=== PATIENT | male | born 1965 | race Caucasian/White ===

== ENCOUNTER 2019-01-05 10:02 | Inpatient (IN) | payer SELFPAY ==
[2019-01-05] VITALS (36 sets, daily range): BP systolic 90–138; BP diastolic 59–92
[~2019-01-05] VITALS: Ht 165.1 cm; Wt 122.5 kg
[~2019-01-05 10:02] MED LIST: NS(*) 0.9% 1000 ML BAG 1,000 ML IV ONE
--- NOTE | 2019-01-05 10:02 | ER Report ---
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 Patient is alert and oriented however and reports slurred speech without motor deficit prompting helicopter to be deployed for seen call however the patient refused transport. Patient was immediately brought to the CT scanner to evaluate for intracranial bleed, CT imaging was negative. Patient was found to be hyperglycemic in the 500s. Patient also has a gangrenous appearing right foot which the patient says started 2 days ago. Patient has a history of type II diabetes. Patient's reports that he developed erythema of the foot starting 2 weeks ago REVIEW OF SYSTEMS: Constitutional: + fever, + chills. Eyes: No discharge. ENT: No sore throat. + Slurred speech Cardiovascular: No chest pain, no palpitations. Respiratory: No cough, no shortness of breath. Gastrointestinal: No abdominal pain, no vomiting. Genitourinary: No hematuria. Musculoskeletal: No back pain. + Right foot infection Skin: No rashes. Neurological: No headache. + No motor deficits Allergies: Coded Allergies: Penicillins (Verified Allergy, Unknown, 01/05/19) Constitutional Vital Sign - Last 24 Hours 01/05/19 01/05/19 01/05/19 01/05/19 10:02 10:17 10:20 10:28 Temp 92.0 Pulse 84 81 81 Resp 26 23 22 B/P (MAP) 125/65 136/98 (111) Pulse Ox 97 95 93 O2 Delivery Room Air 01/05/19 01/05/19 01/05/19 01/05/19 10:30 10:32 10:37 10:45 Temp 91.9 Pulse 84 86 Resp 20 23 B/P (MAP) 136/82 (100) 138/115 (123) Pulse Ox 95 95 01/05/19 01/05/19 01/05/19 01/05/19 11:00 11:07 11:12 11:42 Pulse 87 87 88 Resp 24 23 24 B/P (MAP) 145/78 (100) Pulse Ox 90 89 95 01/05/19 11:50 B/P (MAP) 143/88 (106) Physical Exam General Appearance: The patient is alert, has no immediate need for airway protection and no signs of toxicity. Slurred speech, complaining of his right foot infection 2 days, and be hyperglycemic in the setting of type II diabetes Eyes: Pupils equal and round no pallor or injection. ENT, Mouth: Mucous membranes are dry Respiratory: There are no retractions, lungs are clear to auscultation. Cardiovascular: Regular rate and rhythm. Gastrointestinal: Abdomen is soft and non tender, no masses, bowel sounds normal. Neurological: Mild slurred speech, motor function intact in extremities, no facial droop, cranial nerves intact Skin: Warm and dry, no rashes. Musculoskeletal: Neck is supple non tender. Right foot eschars with proximal erythema and surrounding edema DIFFERENTIAL DIAGNOSIS: After history and physical exam differential diagnosis was considered for adult fever including but not limited to viral syndromes in cluding influenza, urinary tract infection, pneumonia and sepsis, diabetic foot infection, HHN K, DKA, CVA, TIA. Medical Decision Making Data Points Result Diagram: 01/05/19 1016 01/05/19 1016 Laboratory Hematology Test 01/05/19 10:16 White Blood Count 27.7 k/uL (4.5-11.0) H Red Blood Count 4.22 M/uL (4.00-5.60) Hemoglobin 12.1 g/dL (14.0-18.0) L Hematocrit 37.9 % (42.0-52.0) L Mean Corpuscular Volume 89.6 fL (80.0-96.0) Mean Corpuscular Hemoglobin 28.7 pg (26.0-33.0) Mean Corpuscular Hemoglobin Concent 32.1 g/dL (32.0-36.0) Red Cell Distribution Width 14.4 % (11.5-14.5) Platelet Count 225 K/uL (150-450) Mean Platelet Volume 8.2 fL (7.2-11.1) Neutrophils (%) (Auto) 94.5 % (39.4-72.5) H Lymphocytes (%) (Auto) 1.6 % (17.6-49.6) L Monocytes (%) (Auto) 2.8 % (4.1-12.4) L Eosinophils (%) (Auto) 0.0 % (0.4-6.7) L Basophils (%) (Auto) 1.1 % (0.3-1.4) Nucleated RBC Relative Count (auto) 0.0 /100WBC Neutrophils # (Auto) 26.1 K/uL (2.0-7.4) H Lymphocytes # (Auto) 0.4 K/uL (1.3-3.6) L Monocytes # (Auto) 0.8 K/uL (0.3-1.0) Eosinophils # (Auto) 0.0 K/uL (0.0-0.5) Basophils # (Auto) 0.3 K/uL (0.0-0.1) H Nucleated RBC Absolute Count (auto) 0.00 K/uL Peripheral Blood Smear Yes Y/N Chemistry Test 01/05/19 10:16 01/05/19 11:12 Sodium Level 129 mmol/L (137-145) Potassium Level 3.1 mmol/L (3.5-5.0) Chloride Level 85 mmol/L (98-107) Carbon Dioxide Level 13 mmol/L (22-30) Blood Urea Nitrogen 42 mg/dl (9-21) Creatinine 1.60 mg/dl (0.66-1.25) Glomerular Filtration Rate Calc 45.3 Random Glucose 501 mg/dl (75-110) Lactate 2.1 mmol/L (0.7-2.1) Calcium Level 9.9 mg/dl (8.4-10.2) Total Bilirubin 0.6 mg/dl (0.2-1.3) Aspartate Amino Transf (AST/SGOT) 62 U/L (0-35) Alanine Aminotransferase (ALT/SGPT) 38 U/L (0-56) Alkaline Phosphatase 161 U/L (0-126) Total Creatine Kinase 1048 U/L (55-170) Troponin I 0.079 ng/ml Total Protein 6.6 g/dl (6.3-8.2) Albumin 3.0 g/dl (3.5-5.0) Lipase 20 U/L (23-300) Toxicology Test 01/05/19 00:00 01/05/19 10:16 Urine Opiates Screen Negative Urine Barbiturates Screen Negative Ur Tricyclic Antidepressants Screen Negative Urine Phencyclidine Screen Negative Urine Amphetamines Screen Negative Urine Benzodiazepines Screen Negative Urine Cocaine Screen Negative Urine Cannabinoids Screen Negative Acetone, Qualitative Moderate Urinalysis Test 01/05/19 10:31 Urine Color Yellow Urine Clarity Clear Urine pH 5.0 pH (4.8-9.5) Urine Specific [place] 1.018 Urine Protein 100 mg/dL (NEGATIVE) Urine Glucose (UA) 500 mg/dL (NEGATIVE) Urine Ketones 80 mg/dL (NEGATIVE) Urine Blood Moderate (NEGATIVE) Urine Nitrite Negative (NEGATIVE) Urine Bilirubin Negative (NEGATIVE) Urine Urobilinogen Negative mg/dL (0.2-1.9) Urine Leukocyte Esterase Negative (NEGATIVE) Urine RBC 1 /HPF (0-2/HPF) Urine WBC 1 /HPF (0-5/HPF) Urine Squamous Epithelial Cells None /LPF (</=FEW) Urine Bacteria Negative /HPF (NONE-FEW) Urine Hyaline Casts Moderate /LPF (NONE-FEW) Urine Granular Casts Moderate /LPF (NONE) Urine Mucus None /HPF (NONE-FEW) EKG/Imaging EKG Interpretation 12 lead EKG: Normal sinus rhythm, ventricular rate 82, QTC 481, no ischemic findings or ST elevations noted. Rhythm: normal sinus rhythm [place]uckey: normal QRS: normal ST segments: normal Imaging PATIENT NAME: Shayne Fairchild : 1965 MR: [id number] V: [id number] EXAM DATE: ORDERING PHYSICIAN: LALO HOWE TECHNOLOGIST: Location: [facility] [place]: Shayne Fairchild : 1965 Visit/Account:[id number] Date of Sevice: 01/05/2019 CT BRAIN WITHOUT CONTRAST CLINICAL INDICATION: COMPARISON: No priors TECHNIQUE: Contiguous axial CT images of the brain were obtained without IV contrast. Sagittal and coronal reformatted images were also performed. One of the following dose optimization techniques was utilized in the performance of this exam: Automated exposure control; adjustment of the mA and/or kV according to the patient's size; or use of an iterative reconstruction technique. Specific details can be referenced in the facility's radiology CT exam operational policy. RESULT: BRAIN: Ventricles and sulci are within normal limits. Focal hypoattenuation within the left basal ganglia may be related to chronic microvascular ischemic changes however cannot exclude a subacute infarct. Small area of hypoattenuation within the left thalamus is favored chronic. The brainstem and cerebellum appear normal. The basilar cisterns appear normal. There is no mass, hemorrhage or shift of midline. Vascular atherosclerotic calcifications are present. PARANASAL SINUSES & MASTOIDS: Well aerated. SKULL BASE & CRANIUM: Visualized osseous structures are intact. SOFT TISSUES: No soft tissue swelling or hematoma is appreciated. IMPRESSION: 1. No definitive acute findings. 2. Focal hypoattenuation within the left basal ganglia which may be related to chronic microvascular ischemic changes however cannot exclude a subacute in farct. There is an additional small focal area within the left thalamus which is favored chronic. Consider MRI for further evaluation. ED Course/Re-evaluation ED Course Patient is a 53-year-old male here with complaints of right foot infection with eschars and surrounding edema and erythema in the setting of type II diabetes, hyperglycemia, dehydration, slurred speech, CT imaging of the head initially concerning for a subacute CVA prompting MRI evaluation. Patient was also found to be hypothermic with a rectal temp of 92F. Patient had been found in his truck and reportedly had been lying in the supine position for approximately 24 hours or more. Anion gap of 31. Cavazos catheter placed. Potassium was found to be 3.1. Patient will need repletion. I discussed the patient with Dr. To is still accepted the patient to the ICU for further treatment and care. Ertapenem was administered. Decision to Disposition Date: Jan 05, 2019 Decision to Disposition Time: 12:22 Depart Departure Latest Vital Signs Vital Signs Date Time Temp Pulse Resp B/P (MAP) Pulse Ox O2 Delivery O2 Flow Rate FiO2 01/05/19 11:50 143/88 (106) 01/05/19 11:42 88 24 95 01/05/19 10:32 91.9 01/05/19 10:20 Room Air Impression: Primary Impression: Sepsis Additional Impressions: Diabetic foot infection Hyperglycemia Slurred speech Condition: Condition Unchanged Disposition: Admitted from ER Problem Qualifiers LALO HOWE DO Jan 05, 2019 10:02
[2019-01-05] MEDS ORDERED: INS HUM REG* 100 U/ML(ER ONLY) 100 UNIT in NS(*) 0.9% 100 ML BAG 99 ML IVPB ONE (10:10)
[2019-01-05] MEDS ORDERED: INS HUM LISPRO 100U/ML (ER ONLY) 10 ML VIAL SC ONE (10:10)
[2019-01-05] MEDS ORDERED: ERTAPENEM(*) 1 GM VIAL 1 GM in NS(*) 0.9% 100 ML MINI-BAG 100 ML IVPB ONE (10:25)
--- NOTE | 2019-01-05 10:31 | RADIOLOGY IMAGING REPORT ---
FACILITY: [facility] - [place] PATIENT NAME: Shayne Fairchild : 1965 MR: [id number] V: [id number] EXAM DATE: ORDERING PHYSICIAN: LALO HOWE TECHNOLOGIST: Location: [facility] [place] Patient: Shayne Fairchild : 1965 Visit/Account:[id number] Date of Sevice: 01/05/2019 CT BRAIN WITHOUT CONTRAST CLINICAL INDICATION: COMPARISON: No priors TECHNIQUE: Contiguous axial CT images of the brain were obtained without IV contrast. Sagittal and co pita reformatted images were also performed. One of the following dose optimization techniques was utilized in the performance of this exam: Autom ated exposure control; adjustment of the mA and/or kV according to the patient's size; or use of an i terative reconstruction technique. Specific details can be referenced in the facility's radiology C T exam operational policy. RESULT: BRAIN: Ventricles and sulci are within normal limits. Focal hypoattenuation within the left basal ga nglia may be related to chronic microvascular ischemic changes however cannot exclude a subacute infa rct. Small area of hypoattenuation within the left thalamus is favored chronic. The brainstem and cerebellum appear normal. The basilar cisterns appear normal. There is no mass, hemorrhage or shift of midline. Vascular atherosclerotic calcifications are present. PARANASAL SINUSES & MASTOIDS: Well aerated. SKULL BASE & CRANIUM: Visualized osseous structures are intact. SOFT TISSUES: No soft tissue swelling or hematoma is appreciated. IMPRESSION: 1. No definitive acute findings. 2. Focal hypoattenuation within the left basal ganglia which may be related to chronic microvascular ischemic changes however cannot exclude a subacute infarct. There is an additional small focal area within the left thalamus which is favored chronic. Consider MRI for further evaluation. Results were discussed with LALO HOWE at 01/05/2019 10:22 AM. Report Dictated By: Dino Christiansen MD at 01/05/2019 10:15 AM Report E-Signed By: Dino Christiansen MD at 01/05/2019 10:22 AM WSN:[email or web address]
[2019-01-05 10:32] LABS: PLATELET COUNT, AUTOMATED 225 K/uL (150-450)
[2019-01-05] MEDS ORDERED: KCL/NS* 20 MEQ/1000 ML PREMIX 1,000 ML IV ONE (11:25)
--- NOTE | 2019-01-05 11:54 | EKG ---
FACILITY: [facility] - [place] PATIENT NAME: SHIRA TYLER : [id number] MR: [id number] V: [id number] EXAM DATE: ORDERING PHYSICIAN: LALO HOWE TECHNOLOGIST: MINA Test Reason : POSS STROKE Blood Pressure : / mmHG Vent. Rate : 082 BPM Atrial Rate : 082 BPM P-R Int : 138 ms QRS Dur : 106 ms QT Int : 412 ms P-R-T Axes : 067 039 -17 degrees QTc Int : 481 ms Accelerated Junctional rhythm Anterior infarct , age undetermined Abnormal ECG When compared with ECG of 05-JAN-2019 06:33, Junctional rhythm has replaced Sinus rhythm Anterior infarct is now present Confirmed by Maxim Morton ([id number]) on 01/06/2019 12:36:24 AM Referred By: CARLEY Confirmed By:Maxim Reinoso
--- NOTE | 2019-01-05 12:47 | RADIOLOGY IMAGING REPORT ---
FACILITY: [facility] - [place] PATIENT NAME: Shayne Fairchild : 1965 MR: [id number] V: [id number] EXAM DATE: ORDERING PHYSICIAN: LALO HOWE TECHNOLOGIST: Location: [facility] Patient: Shayne Fairchild : 1965 Visit/Account:[id number] Date of Sevice: 01/05/2019 FOOT 2 VIEW RIGHT Indication: infection Comparison: None Available Findings: 2 views of the right foot were obtained. No evidence of fracture, dislocation, or acute osseous abnormality of the right foot. Soft tissue swelling/heterogeneity surrounding the forefoot. No gross underlying osseous abnormality . There are punctate radiodensities overlying the MTP joints which are likely on the skin surface. Moderate to advanced vascular calcifications. No evidence of radiopaque foreign body. Small/moderate Achilles insertional enthesophyte. IMPRESSION: 1. Soft tissue swelling/heterogeneity surrounding the forefoot without gross underlying osseous irre gularity to suggest osteomyelitis. Report Dictated By: Dino Crhistiansen MD at 01/05/2019 12:36 PM Report E-Signed By: Dino Christiansen MD at 01/05/2019 12:39 PM WSN:[email or web address]
[2019-01-05] MEDS ORDERED: INFLUENZA VIRUS VAC 0.5ML SYR IM ONLY ONE (13:35)
[2019-01-05] MEDS: KCL/D1/2NS 20 MEQ 1000 ML 1,000 ML IV SCH ×2 (13:50→16:34)
[2019-01-05] MEDS ORDERED: VANCOMYCIN(*) 1 GM VIAL 2 GM, VANCOMYCIN (*) 0.5 GM VIAL 0.5 GM in NS(*) 0.9% 500 ML BA... IVPB ONE (14:00)
[2019-01-05] MEDS ORDERED: METF-450 PO (14:20)
[2019-01-05] MEDS ORDERED: INSULIN HUM REG 100 UN/ML 3 ML 100 UNIT in NS(*) 0.9% 100 ML BAG 99 ML IV PRN ×2 (15:20→16:49)
--- NOTE | 2019-01-05 15:57 | Pharmacy Note ---
Vancomycin Management Note Vanco Dosing Note Pharmacy Services Pharmacokinetic Dosing Consult, Vancomycin Pharmacy has been consulted for dosing and monitoring of vancomycin for 53 yo male for lower extremity infection. Pertinent Past Medical History: DM2 Antibiotics prior to admission; unknown Additional Antimicrobials: ertapenem 1g x 1 dose in ER Primaxin 300mg Q6H Start 01/05 Patient Information: Height (cm): 165.1cm Actual Body Weight (ABW): 114.39 kg Pertinent Lab Tests WHITE BLOOD COUNT 27.7 NEUTROPHILS 94.5% BLOOD UREA NITROGEN 42 SCR 1.4 VANCOMYCIN TROUGH VANCOMYCIN RANDOM Culture Results: BLOOD URINE SPUTUM WOUND Assessment: CrCl ~60ml/min Renal function is improving Vancomycin Monitoring Assessment Goal Vancomycin Trough Level: 15-20 Plan: 1) Vancomycin 25 mg/kg loading dose (based on ABW): 2500 mg IV x 1 2) Vancomycin maintenance dose (based on ABW): 1750 mg Q12H 3) Vancomycin monitoring: Random vanco level to be drawn 01/06/19 at 1300, before the 3rd dose Pharmacy will continue to monitor daily and adjust regimen as appropriate. Thank you for the consult. YEYO CORRAL Jan 05, 2019 15:57
--- NOTE | 2019-01-05 16:14 | History & Physical ---
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 Patient is alert and oriented however has slurred speech without motor deficit. He had CT of the head to evaluate for intracranial bleed, CT imaging was negative for hemorrhage. Patient was found to be hyperglycemic in the 500s and is a known diabetic. Patient also has a gangrenous appearing right foot which the patient says started 2 days ago. Patient's reports that he developed erythema of the foot starting 2 weeks ago. He was recommended for admission for DKA, gangrene of the right foot, hypothermia, and Sepsis. History Problems: (1) Type 2 diabetes mellitus Status: Chronic Home Meds Reported Medications Metformin Hcl (METFORMIN HCL) 500 Mg Tablet, 1 TAB PO BID, TAB 01/05/19 Allergies: Coded Allergies: Penicillins (Verified Allergy, Unknown, 01/05/19) Hx Smoking: No Hx Alcohol Use: No Hx Substance Use Disorder: No History of IV Drug Use: No Review of Systems All Systems Reviewed/Normal: Yes, Except as Noted Neurological: Slurred Speech Exam Vital Signs Vital Signs Date Time Temp Pulse Resp B/P (MAP) Pulse Ox O2 Delivery O2 Flow Rate FiO2 01/05/19 15:05 94 Nasal Cannula 2.0 01/05/19 14:30 97.6 97 24 114/69 (84) General Appearance: Other (appears drowsy, unable to speak complete sentences) Neuro: Other (slurred speech, weakness noted to body) Cardiovascular: Regular Rate and Rhythm Respiratory: No Respiratory Distress, Clear to Auscultation GI: Abd Soft and Non-Tender Extremities: Edema (right lower extremity 2+pitting edema) Integumentary: Other (gangrene noted to the right foot, black in appearance, crunchy skin) Psych: Other (appears drowsy) Medical Decision Making Data Points Result Diagram: 01/05/19 1016 01/05/19 1405 Item Value Date Time Lactate 3.8 mmol/L *H 01/05/19 1405 Erythrocyte Sedimentation Rate 99 mm/HOUR H 01/05/19 1016 C-Reactive Protein > 27.0 mg/dl H 01/05/19 1016 Magnesium Level 1.9 mg/dl 01/05/19 1112 EKG / Imaging EKG Interpretation EKG reviewed Imaging PATIENT NAME: Shayne Fairchild : 1965 MR: [id number] V: [id number] EXAM DATE: ORDERING PHYSICIAN: LALO HOWE TECHNOLOGIST: Location: [facility] Patient: Shayne Fairchild : 1965 Visit/Account:[id number] Date of Sevice: 01/05/2019 FOOT 2 VIEW RIGHT Indication: infection Comparison: None Available Findings: 2 views of the right foot were obtained. No evidence of fracture, dislocation, or acute osseous abnormality of the right foot. Soft tissue swelling/heterogeneity surrounding the forefoot. No gross underlying osseous abnormality. There are punctate radiodensities overlying the MTP joints which are likely on the skin surface. Moderate to advanced vascular calcifications. No evidence of radiopaque foreign body. Small/moderate Achilles insertional enthesophyte. IMPRESSION: 1. Soft tissue swelling/heterogeneity surrounding the forefoot without gross underlying osseous irregularity to suggest osteomyelitis. Report Dictated By: Dino Christiansen MD at 01/05/2019 12:36 PM Report E-Signed By: Dino Christiansen MD at 01/05/2019 12:39 PM PATIENT NAME: Shayne Fairchild : 1965 MR: [id number] V: [id number] EXAM DATE: [id number] ORDERING PHYSICIAN: LALO HOWE TECHNOLOGIST: Location: [facility] Patient: Shayne Fairchild : 1965 Visit/Account:[id number] Date of Sevice: 01/05/2019 CT BRAIN WITHOUT CONTRAST CLINICAL INDICATION: COMPARISON: No priors TECHNIQUE: Contiguous axial CT images of the brain were obtained without IV contrast. Sagittal and coronal reformatted images were also performed. One of the following dose optimization techniques was utilized in the performance of this exam: Automated exposure control; adjustment of the mA and/or kV according to the patient's size; or use of an iterative reconstruction technique. Specific details can be referenced in the facility's radiology CT exam operational policy. RESULT: BRAIN: Ventricles and sulci are within normal limits. Focal hypoattenuation within the left basal ganglia may be related to chronic microvascular ischemic changes however cannot exclude a subacute infarct. Small area of hypoattenuation within the left thalamus is favored chronic. The brainstem and cerebellum appear normal. The basilar cisterns appear normal. There is no mass, hemorrhage or shift of midline. Vascular atherosclerotic calcifications are present. PARANASAL SINUSES & MASTOIDS: Well aerated. SKULL BASE & CRANIUM: Visualized osseous structures are intact. SOFT TISSUES: No soft tissue swelling or hematoma is appreciated. IMPRESSION: 1. No definitive acute findings. 2. Focal hypoattenuation within the left basal ganglia which may be related to chronic microvascular ischemic changes however cannot exclude a subacute infarct. There is an additional small focal area within the left thalamus which is favored chronic. Consider MRI for further evaluation. Results were discussed with LALO HOWE at 01/05/2019 10:22 AM. Report Dictated By: Dino Christiansen MD at 01/05/2019 10:15 AM Report E-Signed By: Dino Christiansen MD at 01/05/2019 10:22 AM WSN:[email or web address] Assessment and Plan Problems: (1) Sepsis Status: Acute Assessment & Plan: He was admitted with decreased blood pressures and elevated lactate. He has been started on fluid resuscitation. He will get repeat lactate. (2) Gangrene of right foot Status: Acute Assessment & Plan: He presented with gangrene right foot. He reports history of wound for at least two weeks. He has been placed on Vancomycin and Primaxin. General surgery has been consulted for possible amputation of the foot. (3) DKA (diabetic ketoacidoses) Status: Acute Assessment & Plan: He presented with hyperglycemia and elevated anion gap. He was placed on insulin drip with D51/2NS with potassium. He will be placed on hourly glucose checks. He will need to discontinue Metformin secondary to acidosis. (4) Hypothermia Status: Acute Assessment & Plan: He was placed on bare hugger. His temperature has been rising steadily since admission. (5) Slurred speech Status: Acute Assessment & Plan: He had head CT which showed some chronic microvascular ischemic changes, which could not rule out subacute infarct. MRI has been ordered, but will wait to obtain until patient is in more stable condition. Venous Thromboembolism Antithrombotics Is Pt On Any Antithrombotics?: No Prophylaxis Tx Contraindicated Pharmacological Contraindicati: Surgical Contraindication Exam Sepsis Risk: Possible Severe Sepsis Risk Problem Qualifiers (1) DKA (diabetic ketoacidoses): Diabetes mellitus type: type 2 Diabetes mellitus complication detail: without coma Qualified Codes: E11.10 - Type 2 diabetes mellitus with ketoacidosis without coma (2) Hypothermia: Encounter type: initial encounter Qualified Codes: T68.XXXA - Hypothermia, initial encounter RIKA LEIVAP Jan 05, 2019 16:14
[2019-01-05] MEDS: IMIPENEM/CILASTA(*) 500MG VIAL 300 MG in NS(*) 0.9% 100 ML BAG 100 ML IVPB SCH ×2 (16:33→22:00)
[2019-01-05] MEDS: KCL/NS* 20 MEQ/1000 ML PREMIX 1,000 ML IV SCH ×2 (16:38→20:42)
[2019-01-05] MEDS ORDERED: PANTOPRAZOLE SOD 40 MG IV VIAL IVP ONE (17:10)
[2019-01-05] MEDS: PROMETHAZINE 25 MG/ML 1 ML AMP IVP PRN (18:11)
[2019-01-05] MEDS: KCL (*) 20 MEQ/100 ML PREMIX 100 ML IV SCH ×2 (18:40→20:53)
[2019-01-05] MEDS: ACETAMINOPHEN(*)1000 MG/100 ML 100 ML IVPB PRN (20:40)
--- NOTE | 2019-01-05 20:41 | General Surgery Consultation ---
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 Found to be septic with DKA and dry gangrene right foot. No other details available. His reported erythema for 2 weeks prior per chart review. History Unable To Obtain Past Medical: Unable to Obtain/Update Home Meds Reported Medications Metformin Hcl (METFORMIN HCL) 500 Mg Tablet, 1 TAB PO BID, TAB 01/05/19 Allergies: Coded Allergies: Penicillins (Verified Allergy, Unknown, 01/05/19) Review of Systems Other pt somnolent and unable to answer questions Exam Vital Signs Vital Signs Date Time Temp Pulse Resp B/P (MAP) Pulse Ox O2 Delivery O2 Flow Rate FiO2 01/05/19 18:23 101 01/05/19 18:22 5.5 01/05/19 18:00 31 135/69 (91) 91 Nasal Cannula 01/05/19 16:45 100.2 General Appearance: Awake, Other (lethargic) Neuro: No Gross deficits Cardiovascular: Regular Rate and Rhythm Respiratory: Clear to Auscultation, Other (tachypnea) GI: Abd Soft and Non-Tender Extremities: Perfused, Other (extensive gangrene right forefoot with full thickness necrosis of first digit, unable to palpate pedal pulses, no fluctuance) Medical Decision Making Data Points Result Diagram: 01/05/19 1016 01/05/19 1908 Pre-Admit Course Medical Record Review: Yes Assessment and Plan Problems: (1) Gangrene of right foot Status: Acute Assessment & Plan: 53 yo male with extensive gangrene right foot who will require right below the knee amputation, likely an open approach. Time Spent: > 30 min Venous Thromboembolism VTE Risk Physician Assess for VTE Risk: Yes Patient's VTE Risk: High VTE Diagnostic Test 2 Days Prior to Admit: No Antithrombotics Is Pt On Any Antithrombotics?: No POPEYE COLON MD Jan 05, 2019 20:41
--- NOTE | 2019-01-05 20:45 | NUR ---
BS from labdraw Addendum: 01/05/19 at 2305 by SHERYL CARTWRIGHT RN Amended: Links added.
[2019-01-05] MEDS ORDERED: NS(*) 0.9% 500 ML BAG 500 ML ONE (20:49)
[2019-01-05] MEDS: NS(*) 0.9% 500 ML BAG 500 ML IV PRN (21:01)
[2019-01-06] VITALS (63 sets, daily range): BP systolic 105–181; BP diastolic 62–105
[2019-01-06] MEDS: KCL/D1/2NS 20 MEQ 1000 ML 1,000 ML IV SCH ×4 (00:57→21:15)
[2019-01-06] MEDS ORDERED: VANCOMYCIN(*) 1 GM VIAL 1 GM, VANCOMYCIN HCL 0.750 GM VIAL 0.75 GM in NS(*) 0.9% 250 ML... IVPB SCH (02:00)
[2019-01-06] MEDS: IMIPENEM/CILASTA(*) 500MG VIAL 300 MG in NS(*) 0.9% 100 ML BAG 100 ML IVPB SCH ×2 (04:57→09:59)
[2019-01-06 05:58] LABS: PLATELET COUNT, AUTOMATED 187 K/uL (150-450)
[2019-01-06 06:02] LABS: INR 1.23
[2019-01-06] MEDS: PANTOPRAZOLE SOD 40 MG IV VIAL IVP SCH (08:38)
[2019-01-06] MEDS ORDERED: NORMOSOL R SOLN(*) 1000 ML BAG 1,000 ML IV ONE (10:05)
--- NOTE | 2019-01-06 10:42 | Hospitalist Progress Note ---
Subjective Progress Notes Subjective This patient was admitted for sepsis and a gangrenous foot. He had no acute issues overnight. Patient Complains of: Cardiovascular: No: Chest Pain Respiratory: No: Shortness of Breath Physical Exam Vital Signs Date Time Temp Pulse Resp B/P (MAP) Pulse Ox O2 Delivery O2 Flow Rate FiO2 01/06/19 10:01 97 01/06/19 09:30 98.4 17 142/96 (111) 97 Nasal Cannula 2.0 Intake and Output 01/06/19 07:03 Intake Total 6425.7 ml Output Total 2410 ml Balance 4015.7 ml Intake Oral 50 ml IV Total 6375.7 ml Output Urine Total 2410 ml Cardiovascular: Regular Rate and Rhythm Respiratory: Clear to Auscultation Result Diagram: 01/06/1953501/06/19535 Assessment and Plan Problems: (1) Gangrene of right foot Status: Acute Assessment & Plan: He presented with gangrene of the right foot. He has been started on empiric treatment with Primaxin and vancomycin. Blood cultures are showing gram positive cocci in chains. Surgery is planning for amputation today. (2) Sepsis Status: Acute Assessment & Plan: He did have hypothermia, an elevated lactate, and elevated WBC on admission. He received IV fluid resuscitation and antibiotics. (3) DKA (diabetic ketoacidoses) Status: Acute Assessment & Plan: He presented with hyperglycemia and elevated anion gap. He was placed on insulin drip and fluid resuscitation. His gap is closed this morning, but we plan to continue the IV insulin until after surgery. (4) Hypothermia Status: Acute Assessment & Plan: Resolved with active rewarming. (5) Slurred speech Status: Acute Assessment & Plan: He had head CT which showed some chronic microvascular ischemic changes. We may consider and MRI after his infectious issues resolve. (6) Hypokalemia Assessment & Plan: He is scheduled to receive replacement today. (7) Hypomagnesemia Assessment & Plan: He is scheduled to receive replacement today. Exam Sepsis Risk: Sepsis Risk Problem Qualifiers (1) DKA (diabetic ketoacidoses): Diabetes mellitus type: type 2 Diabetes mellitus complication detail: without coma Qualified Codes: E11.10 - Type 2 diabetes mellitus with ketoacidosis without coma (2) Hypothermia: Encounter type: initial encounter Qualified Codes: T68.XXXA - Hypothermia, initial encounter AMANDA HERNANDEZ DO Jan 06, 2019 10:42
--- NOTE | 2019-01-06 11:15 | Medical Nutrition Therapy ---
Nutrition Anthropometrics Height (Inches): 65.00 Height (Calculated Centimeters: 165.255094 Weight (Pounds): 252 Weight (Calculated Kilograms): 114.390 BMI: 42 Hasmukh Nutrition Score: Probably Inadequate Hasmukh Nutrition Risk Score: 13 Dietary Referral Nutrition Risk Factors: Nutrition Risk Comment: Physical Findings Physical Appearance: Morbidly Obese 40+ Skin Appearance Skin Appearance: Edema Edema Location Modifier: Both Edema Location: Arm Type of Edema: Degree of Edema: 3+ Gastrointestinal Symptoms GI Symtoms: Tube Present: Bowel Sounds: Hypoactive Recent Bowel Pattern: Stool Characteristics: Nutritional Diagnosis Nutritional Risk Acuity 2: Abcess/Non-Healing Wound, Sepsis Past Medical History: DM2 Nutritional Acuity: 2-Moderate Nutrition Diagnosis: Increased Nutrient Needs Nutrition Etiology: Physiological Causes Nutrition Problem/Etiology/Sym: increased protein requirement for planned below the knee amputation and sepsis Energy Requirement: 2029 ([place] Equation (adjusted)) Protein Requirement: 115 (115-140g/day (1-1.4g/kg)) Fluid Requirement: 2030 (1mL/kcal) Diet Type: NPO (Nothing by Mouth) Nutrition Monitoring & Eval RD Patient Assessment Time: [address] Assessment Type: RD Re-Assessment Patient Nutrition Acuity: 2-Moderate Follow Up Date: Jan 09, 2019 Nutritional Comment: 01/06/19: Pt admit for AMS/sepsis/DKA gangrene foot. Plan is for BKA. Pt currently NPO. Current wt 252 lbs with RLE 2+ pitting and bilateral feet 3+ pitting, and bilateral arm non pitting edema. K+ slightly low. BGs elevated. Neutrophils elevated. Pertinent rx include vancomycin, imipenum insulin. Pt has increased protein requirements r/t sepsis and will need additional protein following BKA procedure. Will continue to monitor.DB COLLADO Jan 06, 2019 11:15
[2019-01-06] MEDS: ACETAMINOPHEN(*)1000 MG/100 ML 100 ML IVPB PRN (12:05)
[2019-01-06] MEDS: VANCOMYCIN(*) 1 GM VIAL 1 GM, VANCOMYCIN (*) 0.5 GM VIAL 0.5 GM in NS(*) 0.9% 250 ML BA... IVPB SCH (13:57)
[2019-01-06] MEDS: HYDROmorphone HCL 2 MG/ML SDV IVP PRN ×2 (14:05→18:01)
--- NOTE | 2019-01-06 14:14 | General Surgery Progress Note ---
Subjective Progress Notes Subjective pain controlled. Physical Exam Vital Signs Date Time Temp Pulse Resp B/P (MAP) Pulse Ox O2 Delivery O2 Flow Rate FiO2 01/06/19 13:13 90 Nasal Cannula 2.0 01/06/19 13:10 95 01/06/19 12:00 98.8 15 163/105 (124) Intake and Output 01/06/19 07:03 Intake Total 6425.7 ml Output Total 2410 ml Balance 4015.7 ml Intake Oral 50 ml IV Total 6375.7 ml Output Urine Total 2410 ml Cardiovascular: Other (reg rate) Respiratory: No Respiratory Distress Extremities: Other (mid and distal right foot is necrotic. plantar and dorsal skin necrotic with some purulence (would be a nonviable flap). erythema extends up distal aspect of leg.) Result Diagram: 01/06/19 0536 01/06/19 0536 Assessment and Plan Problems: (1) Gangrene of right foot Status: Acute Assessment & Plan: 53 yo male with extensive gangrene right foot who will require right below the knee amputation, likely an open approach. 01/06/19: i discussed condition at length with pt and . they would like to proceed with amputation. npo. iv abx. guillotine amp at ankle, then formal bka in a few days. Exam Sepsis Risk: Sepsis Risk ESTRELLITA FIGUEROA Jan 06, 2019 14:14
[2019-01-06] MEDS ORDERED: MIDAZOLAM 2 MG/2 ML VIAL ONE (14:42)
--- NOTE | 2019-01-06 15:03 | RADIOLOGY IMAGING REPORT ---
FACILITY: [facility] - [place] PATIENT NAME: Shayne Fairchild : 1965 MR: [id number] V: [id number] EXAM DATE: ORDERING PHYSICIAN: ESTRELLITA FIGUEROA TECHNOLOGIST: Location: [facility] Patient: Shayne Fairchild : 1965 Visit/Account:[id number] Date of Sevice: 01/06/2019 EXAMINATION: Portable AP Chest 01/06/2019 2:32 PM HISTORY: pre op COMPARISON: None FINDINGS: Cardiomediastinal contours: Cardiac silhouette is prominent. Lungs and pleura: Vasculature is normal. No infiltrate or consolidation. Pleural spaces are clear. Bones/soft tissues: Cardiac leads are present. IMPRESSION: Mild cardiomegaly. Otherwise unremarkable portable chest. Report Dictated By: Lai Steven MD at 01/06/2019 2:53 PM Report E-Signed By: Lai Steven MD at 01/06/2019 2:54 PM WSN:[id number]
[2019-01-06] MEDS ORDERED: ROPIVACAINE 0.5% 20 ML VIAL ONE (15:49)
[2019-01-06] MEDS ORDERED: SUGAMMADEX SOD 200 MG/2 ML SDV ONE (15:49)
[2019-01-06] MEDS ORDERED: PROPOFOL EMUL(*) 10MG/ML 20 ML 20 ML ONE (15:50)
[2019-01-06] MEDS ORDERED: ROCURONIUM BR 10 MG/ML 5 ML SY 5 ML ONE (15:50)
[2019-01-06] MEDS ORDERED: FLUMAZENIL 0.1 MG/ML 5 ML VIAL ONE (15:54)
--- NOTE | 2019-01-06 16:10 | Pharmacy Note ---
Vancomycin Management Note Vanco Dosing Note Random vanco level today of 21.86 after load and 1 dose q12h. Reduce dose to 1500mg Q12h and recheck level in 24 hrs. Renal function continues to improve. YEYO CORRAL Jan 06, 2019 16:10
--- NOTE | 2019-01-06 16:14 | Antimicrobial Stewardship ---
Antimicrobial Time Out Antimicrobial Stewardship MD Service: Hospitalist Indications: Cellulitis Antimicrobial Used ertapenem 1g x 1 dose in ER, primaxin and vanco continued inpatient Start Date: Jan 05, 2019 Culture Results: Yes (g+ (strep) - pending sensitivities) Eligible for PO Conversion Eligable for PO Conversion: No Reviewed with Provider Reviewed w/ Provider on Rounds: No Comments Comments Patient has severe lower leg infection/gangrene. Covering with broad spectrum (vanco and primaxin) until clinical improvement and sensitivities direct therapy. YEYO CORRAL Jan 06, 2019 16:14
[2019-01-06] MEDS: NS 0.9% IVPB SCH ×2 (17:10→22:48)
[2019-01-06] MEDS: CILASTA IVPB SCH ×2 (17:10→22:48)
[2019-01-06] MEDS: IMIPENEM IVPB SCH ×2 (17:10→22:48)
[2019-01-06] MEDS: MINI IVPB SCH ×2 (17:10→22:48)
[2019-01-06] MEDS ORDERED: INSULIN HUM REG 100 UN/ML 3 ML 100 UNIT in NS(*) 0.9% 100 ML BAG 99 ML IV PRN (18:50)
--- NOTE | 2019-01-06 19:13 | RADIOLOGY IMAGING REPORT ---
FACILITY: [facility] PATIENT NAME: Shayne Fairchild : 1965 MR: [id number] V: [id number] EXAM DATE: ORDERING PHYSICIAN: ESTRELLITA FIGUEROA TECHNOLOGIST: Location: [facility] - [place] Patient: Shayne Fairchild : 1965 Visit/Account:[id number] Date of Sevice: 01/06/2019 CHEST SINGLE AP Indication: line placement Comparison: January 06, 2019 at 2:41 PM. Findings: Right internal jugular central line with tip projecting over the cavoatrial junction. Heart size within normal limits. There is no focal infiltrate or lobar consolidation. Low lung volumes. No pneumothorax or pleural effusion. IMPRESSION: 1. No acute cardiopulmonary process. 2. Right internal jugular central line with tip projecting over the cavoatrial junction. No pneumot horax. Report Dictated By: Dino Christiansen MD at 01/06/2019 7:04 PM Report E-Signed By: Dino Christiansen MD at 01/06/2019 7:05 PM WSN:[id number]
[2019-01-07] VITALS (22 sets, daily range): BP systolic 116–139; BP diastolic 67–82
[2019-01-07] MEDS: VANCOMYCIN(*) 1 GM VIAL 1 GM, VANCOMYCIN (*) 0.5 GM VIAL 0.5 GM in NS(*) 0.9% 250 ML BA... IVPB SCH ×2 (01:51→14:00)
[2019-01-07] MEDS: ACETAMINOPHEN(*)1000 MG/100 ML 100 ML IVPB PRN (03:36)
[2019-01-07] MEDS: KCL/D1/2NS 20 MEQ 1000 ML 1,000 ML IV SCH (03:40)
[2019-01-07] MEDS: CILASTA IVPB SCH ×4 (05:01→23:15)
[2019-01-07] MEDS: IMIPENEM IVPB SCH ×4 (05:01→23:15)
[2019-01-07] MEDS: MINI IVPB SCH ×4 (05:01→23:15)
[2019-01-07] MEDS: NS 0.9% IVPB SCH ×4 (05:01→23:15)
[2019-01-07 05:07] LABS: PLATELET COUNT, AUTOMATED 152 K/uL (150-450)
[2019-01-07] MEDS: HYDROmorphone HCL 2 MG/ML SDV IVP PRN ×3 (06:06→21:16)
[2019-01-07] MEDS ORDERED: NS(*) 0.9% 1000 ML BAG 1,000 ML IV PRN (07:55)
--- NOTE | 2019-01-07 07:59 | OPERATIVE REPORT 1 ---
EVENT DATE: January 06, 2019 SURGEON: Colt Sarkar MD ANESTHESIOLOGIST: Vignesh Bustillo MD ANESTHESIA: General and a lower extremity block. TONGER: None. PREOPERATIVE DIAGNOSIS Gangrenous right foot and sepsis. POSTOPERATIVE DIAGNOSIS Gangrenous right foot and sepsis. PROCEDURES PERFORMED 1. Guillotine amputation at right ankle. 2. Placement of central venous line with ultrasound guidance. FLUIDS IV crystalloid. ESTIMATED BLOOD LOSS Minimal. SPECIMENS Right foot. COMPLICATIONS None. INDICATIONS This is a 53-year old male with uncontrolled diabetes. He has sepsis and a gangrenous right foot. Erythema is extending up the leg. The foot has some wet gangrene as well as dry gangrene. Patient has difficult IV access. Risks and benefits of the procedure were explained and consent was signed. DESCRIPTION OF PROCEDURE The patient was brought to the operating room and placed in a supine position. General anesthesia was administered per the Anesthesia team after placement of lower extremity blocks. The right neck was prepped and draped in normal sterile fashion. Ultrasound guidance was used to advance the Cook needle into the right internal jugular vein. Dark red nonpulsatile blood was returned. Guidewire was advanced. The needle was removed. A small incision was made at the entry site of the guidewire. The dilator was advanced over the guidewire and the dilator was removed after flushing the catheter. The triple-lumen 20 cm catheter was advanced over the guidewire and the guidewire was removed. All lumens aspirated and flushed easily. The catheter was secured in place with silk stitches and appropriate dressings were applied. The right lower extremity was then prepped and draped in normal sterile fashion. Tourniquet was placed at 250. A circumferential incision was made sharply through the soft tissue at the right ankle. Periosteal elevator was used to free the distal tibia and fibula of surrounding tissue. A Gigli saw was then used to divide the tibia and fibula. Hemostasis was achieved with silk stitches and electrocautery. Tourniquet time was 11 minutes. The edges of the bone were made smooth with a rasp. Hemostasis was assured. Appropriate dressings were applied. The patient tolerated the procedure well. There were no complications. [facility]
--- NOTE | 2019-01-07 08:12 | Hospitalist Progress Note ---
Subjective Progress Notes Subjective Somewwhat sedated, but does awaken and answer questions. He reports feeling "better". Physical Exam Vital Signs Date Time Temp Pulse Resp B/P (MAP) Pulse Ox O2 Delivery O2 Flow Rate FiO2 01/07/19 06:42 86 01/07/19 06:38 84 Nasal Cannula 5.0 01/07/19 06:30 18 123/74 (90) 01/07/19 05:00 100.0 Intake and Output 01/07/19 07:03 Intake Total 5845 ml Output Total 1540 ml Balance 4305 ml Intake Oral 100 ml IV Total 5745 ml Output Urine Total 1540 ml General Appearance: Other (somewhat sedated) Neck: Other (Right IJ site look clean) Cardiovascular: Regular Rate and Rhythm Respiratory: Clear to Auscultation Chest: No Tenderness GI: Soft and Non-Tender Extremities: Warm, Perfused, Other (RLE amputation site above ankle is dressed/no drainage. Some proximal abrasions appear fairly clean.) Result Diagram: 01/07/195 01/07/19 0455 Assessment and Plan Problems: (1) Gangrene of right foot Status: Acute Assessment & Plan: He presented with gangrene of the right foot. He was started on empiric treatment with Primaxin and vancomycin. Blood cultures are showing gram positive cocci in chains. Dr. Sarkar (Surgery) performed amputation yesterday and planning on revision in a few days. (2) Sepsis Status: Acute Assessment & Plan: Due to RLE gangrene. He did have hypothermia, an elevated lactate, and elevated WBC on admission. He received IV fluid resuscitation and antibiotics as noted above. (3) DKA (diabetic ketoacidoses) Status: Acute Assessment & Plan: He presented with hyperglycemia and elevated anion gap (prob able ketosis related to acute infection/starvation). He was placed on insulin drip and fluid resuscitation. His gap has closed. Will transition to subcutaneous regimen. (4) Hypothermia Status: Acute Assessment & Plan: Resolved with active rewarming. (5) Slurred speech Status: Acute Assessment & Plan: He had head CT which showed some chronic microvascular ischemic changes. We may consider and MRI after his infectious issues resolve. (6) Hypokalemia Assessment & Plan: He will receive IV replacement. Watch labs. (7) Hypomagnesemia Assessment & Plan: Resolved with supplements. Watch labs. Exam Sepsis Risk: Sepsis Risk Problem Qualifiers (1) DKA (diabetic ketoacidoses): Diabetes mellitus type: type 2 Diabetes mellitus complication detail: without coma Qualified Codes: E11.10 - Type 2 diabetes mellitus with ketoacidosis without coma (2) Hypothermia: Encounter type: initial encounter Qualified Codes: T68.XXXA - Hypothermia, initial encounter SUSAN LOPEZ MD Jan 07, 2019 08:12
[2019-01-07] MEDS: ENOXAPARIN 40 MG/0.4ML SYR SC SCH (08:48)
[2019-01-07] MEDS: PANTOPRAZOLE SOD 40 MG IV VIAL IVP SCH (08:48)
[2019-01-07] MEDS: INSULIN HUM LISPRO 100 UN/ML 3 ML VIAL SUBQ PRN ×4 (08:49→21:39)
[2019-01-07] MEDS: INSULIN GLARGINE 100 U/ML 3 ML PEN SUBQ SCH (08:53)
[2019-01-07] MEDS ORDERED: INS GLAR 100 UN/ML (ER ONLY) 100 UNIT/ML SUBQ SCH (09:00)
--- NOTE | 2019-01-07 13:02 | General Surgery Progress Note ---
Subjective Progress Notes Subjective no acute events Physical Exam Vital Signs Date Time Temp Pulse Resp B/P (MAP) Pulse Ox O2 Delivery O2 Flow Rate FiO2 01/07/19 11:45 82 01/07/19 11:44 97 Nasal Cannula 4.0 01/07/19 10:00 99.0 17 124/74 (91) Intake and Output 01/07/19 07:03 Intake Total 5845 ml Output Total 1540 ml Balance 4305 ml Intake Oral 100 ml IV Total 5745 ml Output Urine Total 1540 ml General Appearance: No Acute Distress Cardiovascular: Other (reg rate) Extremities: Other (right stump dressed. no bleeding seen through dressing. ) Result Diagram: 01/07/19 0455 01/07/19 0455 Assessment and Plan Problems: (1) Gangrene of right foot Status: Acute Assessment & Plan: 53 yo male with extensive gangrene right foot who will require right below the knee amputation, likely an open approach. 01/06/19: i discussed condition at length with pt and . they would like to proceed with amputation. npo. iv abx. guillotine amp at ankle, then formal bka in a few days. 01/07/19: cont abx. diabetic diet. wound care. lovenox. formal bka in a few days. Exam Sepsis Risk: No Definite Risk ESTRELLITA FIGUEROA Jan 07, 2019 13:02
[2019-01-07] MEDS: MAG HYD/AL HYD/SIMETH 30ML UDC PO PRN (17:52)
[2019-01-07] MEDS ORDERED: VANCOMYCIN(*) 1 GM VIAL 1 GM in NS(*) 0.9% 250 ML BAG 250 ML IVPB SCH (21:00)
[2019-01-08] MEDS: CILASTA IVPB SCH ×4 (04:13→22:17)
[2019-01-08] MEDS: NS 0.9% IVPB SCH ×4 (04:13→22:17)
[2019-01-08] MEDS: MINI IVPB SCH ×4 (04:13→22:17)
[2019-01-08] MEDS: IMIPENEM IVPB SCH ×4 (04:13→22:17)
[2019-01-08] MEDS: HYDROmorphone HCL 2 MG/ML SDV IVP PRN ×4 (04:21→23:21)
[2019-01-08 04:28] VITALS: BP 153/74
[2019-01-08 06:31] LABS: PLATELET COUNT, AUTOMATED 166 K/uL (150-450)
[2019-01-08 07:58] VITALS: BP 159/94
[2019-01-08] MEDS: PANTOPRAZOLE SOD 40 MG IV VIAL IVP SCH (08:37)
[2019-01-08] MEDS: INSULIN GLARGINE 100 U/ML 3 ML PEN SUBQ SCH (08:38)
[2019-01-08] MEDS: ENOXAPARIN 40 MG/0.4ML SYR SC SCH (08:38)
[2019-01-08] MEDS: INSULIN HUM LISPRO 100 UN/ML 3 ML VIAL SUBQ PRN ×4 (08:39→21:37)
[2019-01-08] MEDS ORDERED: INSULIN GLARGINE 100 U/ML 3 ML PEN SUBQ ONE (10:10)
[2019-01-08 11:27] VITALS: BP 143/83
[2019-01-08] MEDS: VANCOMYCIN(*) 1 GM VIAL 1 GM in NS(*) 0.9% 250 ML BAG 250 ML IVPB SCH ×2 (11:34→23:22)
[2019-01-08] MEDS: ACETAMINOPHEN(*)1000 MG/100 ML 100 ML IVPB PRN ×2 (12:04→21:58)
[2019-01-08] MEDS: NS(*) 0.9% 500 ML BAG 500 ML IV PRN (12:05)
--- NOTE | 2019-01-08 12:51 | General Surgery Progress Note ---
Subjective Progress Notes Subjective doing better. pain controlled. eating well. Physical Exam Vital Signs Date Time Temp Pulse Resp B/P (MAP) Pulse Ox O2 Delivery O2 Flow Rate FiO2 01/08/19 11:27 98.7 89 14 143/83 (103) 99 Nasal Cannula 2.0 Intake and Output 01/08/19 07:03 Intake Total 921 ml Output Total 1685 ml Balance -764 ml Intake Oral 0 ml IV Total 921 ml Output Urine Total 1685 ml General Appearance: No Acute Distress, Afebrile Cardiovascular: Other (reg rate) Extremities: Other (wound clean) Result Diagram: 01/08/1946 01/08/19545 Assessment and Plan Problems: (1) Gangrene of right foot Status: Acute Assessment & Plan: 53 yo male with extensive gangrene right foot who will require right below the knee amputation, likely an open approach. 01/06/19: i discussed condition at length with pt and . they would like to proceed with amputation. npo. iv abx. guillotine amp at ankle, then formal bka in a few days. 01/07/19: cont abx. diabetic diet. wound care. lovenox. formal bka in a few days. 01/08/19: improving. cont abx. diabetic diet. wound care. blood sugar control. formal bka, poss tomorrow. Exam Sepsis Risk: No Definite Risk ESTRELLITA FIGUEROA Jan 08, 2019 12:51
--- NOTE | 2019-01-08 14:12 | NUR ---
Physical Therapy Impression PT/OT co eval complete. Per RN, pt is cleared for mobility at this time as long as NWB of R) LE is maintained. Pt's spouse present for therapy session. Pt is hesitant to attempt to sit at EOB, reporting high levels of R) shoulder pain as main complaint. Pt positioned in chair position in bed.OT completed PROM and AAROM of R) shoulder. PT instructed pt in L) LE SAQ, hamstring sets and ankle pumps. No further mobility attempted at this time. PT will continue to follow for mobility needs. Physical Therapy Goals 1: Pt to complete bed mobility with Daniela 2: Pt to complete transfers with CGA and appropriate AD 3: Pt to ambulate 15' with CGA and appropriate AD Patient's Goals
[2019-01-08] MEDS ORDERED: LORazepam 2 MG/ML VIAL IVP PRN (14:15)
--- NOTE | 2019-01-08 14:19 | Hospitalist Progress Note ---
Subjective Progress Notes Subjective ILIANA overnight, glucose continues to run high. Discussed mental status with who says it is nearing normal, given CT findings of questionable subacute area, will get MRI. Physical Exam Vital Signs Date Time Temp Pulse Resp B/P (MAP) Pulse Ox O2 Delivery O2 Flow Rate FiO2 01/08/19 11:27 98.7 89 14 143/83 (103) 99 Nasal Cannula 2.0 Intake and Output 01/08/19 07:03 Intake Total 921 ml Output Total 1685 ml Balance -764 ml Intake Oral 0 ml IV Total 921 ml Output Urine Total 1685 ml General Appearance: Awake, No Acute Distress, Afebrile Neuro: No Gross deficits Cardiovascular: Normal Rhythm & Peripheral Pulses Respiratory: No Respiratory Distress GI: Soft and Non-Tender Extremities: Soft and Non Tender, Warm, Other (R above ankle amputation) Result Diagram: 01/08/1954501/08/19545 Assessment and Plan Problems: (1) Gangrene of right foot Status: Acute Assessment & Plan: He presented with gangrene of the right foot. He was started on empiric treatment with Primaxin and vancomycin. Blood cultures are showing gram positive cocci in chains. Dr. Sarkar (Surgery) performed amputation 01.07.19 and planning on BKA when glucose and infection improved. (2) Sepsis Status: Acute Assessment & Plan: Due to RLE gangrene. He did have hypothermia, an elevated lactate, and elevated WBC on admission. He received IV fluid resuscitation and antibiotics as noted above. Resolved. (3) DKA (diabetic ketoacidoses) Status: Acute Assessment & Plan: He presented with hyperglycemia and elevated anion gap (probable ketosis related to acute infection/starvation). He was placed on insulin drip and fluid resuscitation. His gap has closed. Lantus 20U and SSI #2. (4) Hypothermia Status: Acute Assessment & Plan: Resolved with active rewarming. (5) Slurred speech Status: Acute Assessment & Plan: He had head CT which showed some chronic microvascular ischemic changes. Given continued slight slurring and CT finding, will get MRI today to further evaluate. (6) Hypokalemia Assessment & Plan: He will receive IV replacement. Watch labs. (7) Hypomagnesemia Assessment & Plan: Resolved with supplements. Watch labs. Exam Sepsis Risk: No Definite Risk Problem Qualifiers (1) DKA (diabetic ketoacidoses): Diabetes mellitus type: type 2 Diabetes mellitus complication detail: without coma Qualified Codes: E11.10 - Type 2 diabetes mellitus with ketoacidosis without coma (2) Hypothermia: Encounter type: initial encounter Qualified Codes: T68.XXXA - Hypothermia, initial encounter HUMPHREY FELIX DO Jan 08, 2019 14:19
[2019-01-08 16:28] VITALS: BP 151/89
--- NOTE | 2019-01-08 17:16 | RADIOLOGY IMAGING REPORT ---
FACILITY: [facility] PATIENT NAME: Shayne Fairchild : 1965 MR: [id number] V: [id number] EXAM DATE: ORDERING PHYSICIAN: HUMPHREY VIRGEN TECHNOLOGIST: Location: [facility] [place] Patient: Shayne Fairchild : 1965 Visit/Account:[id number] Date of Sevice: 01/08/2019 Examination: MR brain without contrast History: Evaluate for infarct Comparison: CT 01/05/2019 Technique: Multiplane MR imaging was performed through the brain without contrast. Findings: Diffusion: None Ventricles: Normal Midline shift: None Extraaxial fluid: None. Midline craniocervical structures: Small degenerative pannus posterior to the dens. Parenchyma: A few scattered punctate white matter high signal foci. Chronic lacunar infarcts in the l eft basal ganglia and left thalamus unchanged. Additional chronic lacunar infarct within or just late ral to the right thalamus is unchanged. Vascular flow voids: Normal Orbits and paranasal sinuses: Small left maxillary sinus mucous retention cyst. Other: No significant additional finding. Impression: 1. No acute intracranial abnormality. 2. Unchanged chronic bilateral thalamic lacunar infarcts and left basal ganglia lacunar infarct. 3. Minimal to mild chronic small vessel ischemic change. Report Dictated By: Dino Dejesus MD at 01/08/2019 4:59 PM Report E-Signed By: Dino Dejesus MD at 01/08/2019 5:08 PM WSN:[id number]
[2019-01-08 19:13] VITALS: BP 156/91
[2019-01-08] MEDS: MAG HYD/AL HYD/SIMETH 30ML UDC PO PRN (20:27)
[2019-01-08] MEDS: DOCUSATE SODIUM 100 MG CAP PO SCH (21:21)
[2019-01-08] MEDS: POLYETHYLENE GLYCOL 17 GM PKT PO SCH (21:21)
[2019-01-08 23:52] VITALS: BP 131/80
[2019-01-09] VITALS (15 sets, daily range): BP systolic 100–145; BP diastolic 56–91
[2019-01-09] MEDS: ACETAMINOPHEN(*)1000 MG/100 ML 100 ML IVPB PRN ×3 (04:27→19:40)
[2019-01-09] MEDS: IMIPENEM IVPB SCH ×4 (04:49→23:02)
[2019-01-09] MEDS: CILASTA IVPB SCH ×4 (04:49→23:02)
[2019-01-09] MEDS: NS 0.9% IVPB SCH ×4 (04:49→23:02)
[2019-01-09] MEDS: MINI IVPB SCH ×4 (04:49→23:02)
[2019-01-09 05:48] LABS: PLATELET COUNT, AUTOMATED 168 K/uL (150-450)
[2019-01-09] MEDS: HYDROmorphone HCL 2 MG/ML SDV IVP PRN ×3 (06:33→21:55)
[2019-01-09] MEDS: PANTOPRAZOLE SOD 40 MG IV VIAL IVP SCH (08:16)
[2019-01-09] MEDS: ENOXAPARIN 40 MG/0.4ML SYR SC SCH (08:20)
[2019-01-09] MEDS: POLYETHYLENE GLYCOL 17 GM PKT PO SCH ×2 (08:20→21:55)
[2019-01-09] MEDS: INSULIN HUM LISPRO 100 UN/ML 3 ML VIAL SUBQ PRN (08:20)
[2019-01-09] MEDS: DOCUSATE SODIUM 100 MG CAP PO SCH ×2 (08:21→21:55)
[2019-01-09] MEDS: INSULIN GLARGINE 100 U/ML 3 ML PEN SUBQ SCH (08:23)
--- NOTE | 2019-01-09 10:58 | Pharmacy Note ---
Vancomycin Management Note Vanco Dosing Note Vancomycin trough today was 19.94 so will keep dose at 1 gm IV q12h with a trough to be drawn tomorrow at 10 am. Patient to OR today for further amputation. CARLOS ALBERTO BENAVIDES Jan 09, 2019 10:58
[2019-01-09] MEDS ORDERED: NORMOSOL R SOLN(*) 1000 ML BAG 1,000 ML IV ONE (11:00)
[2019-01-09] MEDS: VANCOMYCIN(*) 1 GM VIAL 1 GM in NS(*) 0.9% 250 ML BAG 250 ML IVPB SCH ×2 (11:02→23:46)
--- NOTE | 2019-01-09 11:06 | SPEECH INITIAL EVALUATION ---
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 He exhibited slurred speech in the ED, prompting request for completion of a brain MRI. Results revealed unchanged chronic bilateral thalamic lacunar infarcts, L basal ganglia lacunar infarct, and minimal to mild chronic small vessel ischemic changes. The pt was further found to be hyperglycemic with a gangrenous appearing R foot. He was recommended for admission for DKA, gangrene, hypothermia, and sepsis. He is now s/p BKA. An ST consult was requested to analyze persistent slurred speech, cognitive linguistic status, and to screen swallow status secondary to RN report of concern for cognitive changes and possible dysphagia. Primary Medical Diagnosis: gangrene of right food (s/p BKA) Past Medical Hx: diabetes Pain Scale (0-10): did not quantify; facial grimace observed with repositioning LOC / Participation: very pleasant, participatory, somewhat lethargic Prior Level of Function: independent; drives a semi-truck for a living. Dysphagia: screened with water test. Pt on clear liquid diet pending surgical procedure this PM. No overt indicators of aspiration noted with thin liquids via single or rapid, consecutive sips. Provided general education re: dysphagia, risks of aspiration, aspiration precautions, and relationship between respiration and deglutition given elevated O2 needs. Pt and spouse verbalized agreement. Will continue to monitor if family, pt, or staff note further deficits in swallow function. COGNITIVE LINGUISTIC ASSESSMENT Cognitive linguistic assessment completed at the bedside, illustrating moderate deficits most notably characterized by difficulty with attention, executive functions (planning, thought organization, error awareness), speed of processing, temporal orientation, and memory (immediate, short-term). Suspect deficits are related to lethargy in addition to diabetic ketoacidosis. Cognitive linguistic assessment procedures focused on informal analysis paired with portions of the Arnaldo Cognitive Assessment (MOCA), version 7.2. Unable to administer assessment to its entirety due to difficulty with sustained attention to structured tasks. Throughout evaluation, pt frequently became highly distracted, disorganized, or lost track of instructions part-way through completion. This negatively impacted retention of novel information for immediate and delayed recall, ability to plan or sequence for completion of executive function tasks, and ability to access information for accurate response to orientation questions. The pt further exhibited delayed speed of processing, requiring extra time or multiple prompts prior to responding to structured evaluation tasks or informal interview questions. Will follow-up for completion of full, formal evaluation following additional surgical procedure (scheduled for today at 3pm). MOTOR SPEECH ASSESSMENT Motor speech was informally analyzed using diadodokinetic tasks and speech samples at the word, sentence, and conversational levels. Pt exhibits mild consonant imprecision and reduced vocal loudness with negative impact on overall intelligibility. Speech intelligibility was calculated at 100% in words, 90% in sentences, and 90% in conversation. Pt was encouraged to implement speech production strategies, including diaphragmatic breath support, slowed rate of speech, increased loudness, and exaggerated articulation. Pt verbalized agreement. Suspect speech deficits will resolve with reduction in lethargy and elevated O2 needs. No acute findings on MRI to indicate potential for long-term dysarthria. Will continue to monitor. Per chart review, suspect this pt is functioning mild to moderately below baseline from a cognitive linguistic standpoint. Skilled ST interventions are warranted to support functional communication and cognitive linguistic deficits for positive integration within hospital environment, and for safe and efficient return to PLOF. Discharge recommendations pending progress. RECOMMENDATIONS 1. ST 4x/wk 2. D/C recs pending pt progress PROGNOSIS: Good. High PLOF. Insight into deficits. PLAN OF CARE Short Term Goals 1. Pt will independently implement motor speech strategies (diaphragmatic breath support, articulatory exaggeration, slowed speaking rate) at the conversational level with improved speaking intelligibility to 100%. 2. Pt will be oriented to location, temporal concepts, and situation across 3 consecutive tx encounters with independent reference to external visual aides as needed. 3. Pt will attend to functional ADL/IADL tasks for 5 minute intervals with occ verbal or visual cues for redirection to support participation in purposeful tasks, rehabilitative POC, and daily routine. Thank you for this referral. Please call [phone] with any questions or concerns. Veena Bauman M.S., CCC-SCRAP WORKER [*] MOHAND
[2019-01-09] MEDS: NS(*) 0.9% 500 ML BAG 500 ML IV PRN (11:18)
--- NOTE | 2019-01-09 11:31 | NUR ---
ST IMPRESSION Cognitive linguistic and motor speech assessments complete. See full report for detailed information. Will continue to monitor s/p BKA (anticipated to occur today, 01/09). D/C recs pending progress.
--- NOTE | 2019-01-09 11:43 | Hospitalist Progress Note ---
Subjective Progress Notes Subjective He denies cp/sob. Staff notes that he has some apnea episodes while sleeping. Physical Exam Vital Signs Date Time Temp Pulse Resp B/P (MAP) Pulse Ox O2 Delivery O2 Flow Rate FiO2 01/09/19 11:09 98.3 83 24 145/88 (107) 96 Nasal Cannula 2.0 Intake and Output 01/09/19 07:03 Intake Total 1430 ml Output Total 1850 ml Balance -420 ml Intake Oral 430 ml IV Total 1000 ml Output Urine Total 1850 ml General Appearance: Alert, Awake, No Acute Distress Cardiovascular: Regular Rate and Rhythm Respiratory: Clear to Auscultation (But not taking deep breaths.) Extremities: Edema (1-2+ pitting in ankles/feet bilaterally) Result Diagram: 01/09/1952401/09/19524 Assessment and Plan Problems: (1) Gangrene of right foot Status: Acute Assessment & Plan: He presented with gangrene of the right foot. He was started on empiric treatment with Primaxin and vancomycin. Blood cultures are growing Group B streptococcus and MSSA. Repeat cultures were drawn this morning. Echo to be ordered to evaluate the heart valves. Dr. Sarkar (Surgery) performed amputation 01/07 and planning on BKA today. (2) Sepsis Status: Acute Assessment & Plan: Due to RLE gangrene. He did have hypothermia, an elevated lactate, and elevated WBC on admission. He received IV fluid resuscitation and antibiotics as noted above. Resolved. He has received about 14 liters of IVF since admission, so will follow closely for fluid overload. (3) DKA (diabetic ketoacidoses) Status: Acute Assessment & Plan: He presented with hyperglycemia and elevated anion gap (probable ketosis related to acute infection/starvation). He was placed on insulin drip and fluid resuscitation. His gap has closed. Lantus 20U and SSI #2. Chronically on metformin. Follow closely. (4) Hypothermia Status: Resolved Assessment & Plan: Resolved with active rewarming. (5) Slurred speech Status: Acute Assessment & Plan: Improving and essentially resolved. He had head CT which showed some chronic microvascular ischemic changes. MRI had no acute abnormalities. (6) Hypokalemia Assessment & Plan: He will receive IV replacement. Watch labs. Exam Sepsis Risk: No Definite Risk Problem Qualifiers (1) DKA (diabetic ketoacidoses): Diabetes mellitus type: type 2 Diabetes mellitus complication detail: without coma Qualified Codes: E11.10 - Type 2 diabetes mellitus with ketoacidosis without coma (2) Hypothermia: Encounter type: initial encounter Qualified Codes: T68.XXXA - Hypothermia, initial encounter CONOR FONG MD Jan 09, 2019 11:42
[2019-01-09] MEDS ORDERED: fentaNYL CITR 250 MCG/5 ML AMP ONE (12:05)
[2019-01-09] MEDS ORDERED: LIDOCAINE MPF 1% 5 ML VIAL ONE (12:51)
[2019-01-09] MEDS ORDERED: ONDANSETRON 4 MG/2 ML VIAL ONE (12:51)
[2019-01-09] MEDS ORDERED: PROPOFOL EMUL(*) 10MG/ML 20 ML 20 ML ONE (12:51)
[2019-01-09] MEDS ORDERED: EPINEPHrine HCL 1 MG/ML AMP ONE (12:53)
[2019-01-09] MEDS ORDERED: ROPIVACAINE 0.5% 20 ML VIAL ONE (12:53)
--- NOTE | 2019-01-09 13:41 | Medical Nutrition Therapy ---
Nutrition Anthropometrics Height (Inches): 65.00 Height (Calculated Centimeters: 165.508864 Weight (Pounds): 252 Weight (Calculated Kilograms): 114.390 BMI: 42 Hasmukh Nutrition Score: Probably Inadequate Hasmukh Nutrition Risk Score: 11 Dietary Referral Nutrition Risk Factors: Nutrition Risk Comment: Physical Findings Physical Appearance: Morbidly Obese 40+ Skin Appearance Skin Appearance: Edema Edema Location Modifier: Left Edema Location: Lower Extremity Type of Edema: Degree of Edema: 2+ Gastrointestinal Symptoms GI Symtoms: Constipation Tube Present: Bowel Sounds: Recent Bowel Pattern: Stool Characteristics: Nutrition/Food History Good Breakfast: 3 meals/day Nutritional Diagnosis Nutritional Risk Acuity 2: Abcess/Non-Healing Wound, Sepsis Past Medical History: DM2 Nutritional Acuity: 2-Moderate Nutrition Diagnosis: Increased Nutrient Needs Nutrition Etiology: Physiological Causes Nutrition Problem/Etiology/Sym: increased protein requirement for planned below the knee amputation and sepsis Energy Requirement: 2029 (Barajas Goltry Equation (adjusted)) Protein Requirement: 115 (115-140g/day (1-1.4g/kg)) Fluid Requirement: 2030 (1mL/kcal) Diet Type: NPO (Nothing by Mouth) Nutrition Intervention: Teaching, Vit/min support Diet Comment To RSA: DELIVER FAUSTO ON BREAKFAST AND DINNER TRAYS Nutrition Monitoring & Eval Nutrition Goals: Eat 75-100% Meal Nutrition Follow-Up: Good Intake Nutrition Monitoring: BGs, Wound Healing, Tolerance to Supplements RD Patient Assessment Time: [address] Assessment Type: RD Re-Assessment Patient Nutrition Acuity: 2-Moderate Follow Up Date: Jan 14, 2019 Nutritional Comment: 01/06/19: Pt admit for AMS/sepsis/DKA gangrene foot. Plan is for BKA. Pt currently NPO. Current wt 252 lbs with RLE 2+ pitting and bilateral feet 3+ pitting, and bilateral arm non pitting edema. K+ slightly low. BGs elevated. Neutrophils elevated. Pertinent rx include vancomycin, imipenum insulin. Pt has increased protein requirements r/t sepsis and will need additional protein following BKA procedure. Will continue to monitor.GENE 01/09/19: Pt currently s/p foot amputation and scheduled for BKA today. BGs running high, CRP elevated, neutrophils elevated but trending down. Has RLE 2+, LLE 3+, and bilateral arm 1+ edema. Current meal intake averaging 75%, on ADA diet. Spoke briefly with pt this afternoon. Discussed importance of getting adequate protein for healing after surgery. Discussed foods high in protein. Following surgery will add Fausto to promote wound healing. Will continue to follow.DB COLLADO Jan 09, 2019 13:41
--- NOTE | 2019-01-09 14:06 | NUR ---
Physical Therapy Impression PT/OT co-treat for pt safety, and time split for billing purposes. Pt tolerated Max assist of 2 with head of bed raised, in order to transfer to sitting at EOB. Once seated upright with L) foot on floor, pt was able to indep maintain his balance with VS in safe range x 5 minutes. Pt became somewhat fatigued and was transferred back to supine, which required 2 Person Max assist and additional assistance from staff to scoot up in bed with total assist of 3 or more. Physical Therapy Goals 1: Pt to complete bed mobility with Daniela 2: Pt to complete transfers with CGA and appropriate AD 3: Pt to ambulate 15' with CGA and appropriate AD Patient's Goals
--- NOTE | 2019-01-09 14:10 | General Surgery Progress Note ---
Subjective Progress Notes Subjective no acute events Physical Exam Vital Signs Date Time Temp Pulse Resp B/P (MAP) Pulse Ox O2 Delivery O2 Flow Rate FiO2 01/09/19 12:41 30.0 01/09/19 11:09 98.3 83 24 145/88 (107) 96 Nasal Cannula 2.0 Intake and Output 01/09/19 07:03 Intake Total 1430 ml Output Total 1850 ml Balance -420 ml Intake Oral 430 ml IV Total 1000 ml Output Urine Total 1850 ml General Appearance: No Acute Distress Cardiovascular: Other (reg rate) GI: Other (abd soft) Extremities: Other (right stump dressed, patent popliteal and femoral areteries on right by doppler ) Result Diagram: 01/09/1952401/09/19524 Assessment and Plan Problems: (1) Gangrene of right foot Status: Acute Assessment & Plan: 53 yo male with extensive gangrene right foot who will require right below the knee amputation, likely an open approach. 01/06/19: i discussed condition at length with pt and . they would like to proceed with amputation. npo. iv abx. guillotine amp at ankle, then formal bka in a few days. 01/07/19: cont abx. diabetic diet. wound care. lovenox. formal bka in a few days. 01/08/19: improving. cont abx. diabetic diet. wound care. blood sugar control. formal bka, poss tomorrow. 01/09/19: cont abx, blood sugar control. bka on right today. Exam Sepsis Risk: No Definite Risk ESTRELLITA FIGUEROA Jan 09, 2019 14:10
[2019-01-09] MEDS ORDERED: KETAMINE HCL 200 MG/20 ML MDV ONE (15:22)
[2019-01-09] MEDS ORDERED: HYDROmorphone HCL 2 MG/ML SDV ONE (15:23)
[2019-01-09] MEDS ORDERED: ePHEDrine 25 MG/5 ML DISP.SYR IVP ONE (15:33)
[2019-01-09] MEDS ORDERED: fentaNYL CITR 100 MCG/2 ML AMP ONE ×3 (17:01→17:44)
--- NOTE | 2019-01-09 17:07 | Post Operative Progress Note ---
Post Operative Progress Note Date: Jan 09, 2019 Time: 17:02 Surgeon: dr. fred johnson Coffee Host: none Anesthesia: gen dr. guzman Pre-Op Diagnosis: right foot infection Post-Op Diagnosis: same Procedure(s): right bka Complications: none Estimated Blood Loss: 600 ml ESTRELLITA FIGUEROA Jan 09, 2019 17:07
[2019-01-09] MEDS: PROMETHAZINE 25 MG/ML 1 ML AMP IVP PRN (19:40)
[2019-01-09] MEDS: APAP/HYDROCODONE 325/7.5 TAB PO PRN (23:02)
[2019-01-10] VITALS (9 sets, daily range): BP systolic 104–131; BP diastolic 61–88
[2019-01-10] MEDS: HYDROmorphone HCL 2 MG/ML SDV IVP PRN ×3 (05:03→11:51)
[2019-01-10] MEDS: NS 0.9% IVPB SCH ×3 (05:03→18:01)
[2019-01-10] MEDS: IMIPENEM IVPB SCH ×3 (05:03→18:01)
[2019-01-10] MEDS: MINI IVPB SCH ×3 (05:03→18:01)
[2019-01-10] MEDS: CILASTA IVPB SCH ×3 (05:03→18:01)
[2019-01-10 06:59] LABS: PLATELET COUNT, AUTOMATED 200 K/uL (150-450)
[2019-01-10] MEDS: ACETAMINOPHEN(*)1000 MG/100 ML 100 ML IVPB PRN (09:19)
[2019-01-10] MEDS: PANTOPRAZOLE SOD 40 MG IV VIAL IVP SCH (09:37)
[2019-01-10] MEDS: DOCUSATE SODIUM 100 MG CAP PO SCH ×2 (09:37→20:21)
[2019-01-10] MEDS: POLYETHYLENE GLYCOL 17 GM PKT PO SCH ×2 (09:38→20:21)
[2019-01-10] MEDS: ENOXAPARIN 40 MG/0.4ML SYR SC SCH (09:38)
[2019-01-10] MEDS: INSULIN GLARGINE 100 U/ML 3 ML PEN SUBQ SCH (09:39)
--- NOTE | 2019-01-10 10:00 | NUR ---
Physical Therapy Impression PT obtained 22" brace to protect distal end of residual limb, however, due to significant edema in thighs and scrotal area, PT is unable to place this device high enough into groin area for proper fit. This brace was disposed of, as pt was determined to have MRSA and is now under contact precautions. PT then obtained 16" brace which was adequate for length and pillow case was placed along anterior thigh to protect edematous skin of thigh from rubbing on velcro straps. Anticipating decrease in edema, this brace can be adjusted for the circumference of the leg as this improves. Pt was encouraged to complete a straight leg raise with R) LE to assist in brace placement and pillow positioning for elevation after brace was fit. Pt is not yet able to complete a SLR against gravity, but is able to assist nursing while lifting. ASSEMBLER INSTALLER STRUCTURES will address PROM/AAROM to B) UE's and B) LE's later today. Will not attempt sitting at edge of bed, due to planned transfusion related to lower H&H today. Physical Therapy Goals 1: Pt to complete bed mobility with Daniela 2: Pt to complete transfers with CGA and appropriate AD 3: Pt to ambulate 15' with CGA and appropriate AD Patient's Goals
[2019-01-10] MEDS ORDERED: FUROSEMIDE 20 MG/2 ML VIAL IVP ONE (10:05)
--- NOTE | 2019-01-10 10:09 | General Surgery Progress Note ---
Subjective Progress Notes Subjective complains incisional pain Right BKA site Physical Exam Vital Signs Date Time Temp Pulse Resp B/P (MAP) Pulse Ox O2 Delivery O2 Flow Rate FiO2 01/10/19 00:00 87 104/61 (75) 96 Nasal Cannula 3.0 01/09/19 23:40 30.0 01/09/19 18:15 18 01/09/19 18:13 98.6 Intake and Output 01/10/19 07:03 Intake Total 2150 ml Output Total 1750 ml Balance 400 ml Intake Oral 50 ml IV Total 2100 ml Output Urine Total 1750 ml General Appearance: Alert, Awake, No Acute Distress, Afebrile Musculoskeletal: Other (right knee immobilizer intact, dressing CDI) Psych: Alert & Oriented X3, Appropriate Mood & Affect Result Diagram: 01/10/19 0600 01/10/19 06 Assessment and Plan Problems: (1) Gangrene of right foot Status: Acute Assessment & Plan: 53 yo male with extensive gangrene right foot who will require right below the knee amputation, likely an open approach. 01/06/19: i discussed condition at length with pt and . they would like to proceed with amputation. npo. iv abx. guillotine amp at ankle, then formal bka in a few days. 01/07/19: cont abx. diabetic diet. wound care. lovenox. formal bka in a few days. 01/08/19: improving. cont abx. diabetic diet. wound care. blood sugar control. formal bka, poss tomorrow. 01/09/19: cont abx, blood sugar control. bka on right today. 01/10/19: POD#1 formal Right BKA. Cont immobilizer, antbx. Plan dressing change early Saturday am with PT. Agree with transfusion. Discussed with Med team. Time Spent: > 30 min Exam Sepsis Risk: No Definite Risk POPEYE COLON MD Jan 10, 2019 10:09
[2019-01-10] MEDS: NS(*) 0.9% 500 ML BAG 500 ML IV PRN (10:28)
[2019-01-10] MEDS: APAP/HYDROCODONE 325/7.5 TAB PO PRN ×2 (10:28→18:00)
--- NOTE | 2019-01-10 10:55 | Hospitalist Progress Note ---
Subjective Progress Notes Subjective He is awake and alert. He does speak slowly, but answers all questions. No fever. Appetite improved. Hgb/Hct have dropped further. Physical Exam Vital Signs Date Time Temp Pulse Resp B/P (MAP) Pulse Ox O2 Delivery O2 Flow Rate FiO2 01/10/19 10:42 98.3 91 16 126/77 01/10/19 00:00 96 Nasal Cannula 3.0 01/09/19 23:40 30.0 Intake and Output 01/10/19 07:03 Intake Total 2150 ml Output Total 1750 ml Balance 400 ml Intake Oral 50 ml IV Total 2100 ml Output Urine Total 1750 ml General Appearance: Alert, Awake Cardiovascular: Regular Rate and Rhythm Respiratory: Clear to Auscultation GI: Soft and Non-Tender Extremities: Other (Right BKA dressed/no drainage noted) Result Diagram: 01/10/19 0600 01/10/19 0600 Assessment and Plan Problems: (1) Gangrene of right foot Status: Acute Assessment & Plan: He presented with gangrene of the right foot. He was started on empiric treatment with Primaxin and vancomycin. Blood cultures are growing Group B streptococcus and MRSA. Repeat cultures were drawn yesterday morning. Echocardiogram to evaluate the heart valves is still pending. Dr. Sarkar (Surgery) performed amputation 01/07 and planning on BKA today. (2) Sepsis Status: Acute Assessment & Plan: Resolved. Due to RLE gangrene. He did have hypothermia, an elevated lactate, and elevated WBC on admission. He received IV fluid resuscitation and antibiotics as noted above. He has received about 14 liters of IVF since admission, so will follow closely for fluid overload. (3) ANEMIA, UNSPECIFIED Status: Acute Assessment & Plan: Most likely due to acute blood loss with surgeries and acute illness (sepsis). As he has continue to drop, will transfuse 2 units PRBC today. Watch labs closely. (4) DKA (diabetic ketoacidoses) Status: Acute Assessment & Plan: He presented with hyperglycemia and elevated anion gap (pro bable ketosis related to acute infection/starvation). He was placed on insulin drip and fluid resuscitation. His gap has closed. Lantus 20U and SSI #2. Chronically on metformin (will NOT resume at this time). Follow closely. (5) Hypothermia Status: Resolved Assessment & Plan: Resolved with active rewarming. (6) Slurred speech Status: Acute Assessment & Plan: Improving and essentially resolved. He had head CT which showed some chronic microvascular ischemic changes. MRI had no acute abnormalities. (7) Hypokalemia Assessment & Plan: He will receive IV replacement. Watch labs. Exam Sepsis Risk: No Definite Risk Problem Qualifiers (1) DKA (diabetic ketoacidoses): Diabetes mellitus type: type 2 Diabetes mellitus complication detail: without coma Qualified Codes: E11.10 - Type 2 diabetes mellitus with ketoacidosis without coma (2) Hypothermia: Encounter type: initial encounter Qualified Codes: T68.XXXA - Hypothermia, initial encounter SUSAN LOPEZ MD Jan 10, 2019 10:55
--- NOTE | 2019-01-10 11:30 | NUR ---
Physical Therapy Impression Patient presents in bed receiving blood transfusion with nursing present giving IV and pain meds. Left UE was active rom shoulder flexion and elbow flex and ext Right UE was PROM flex and abd gentle oscillation and distraction Left LE was ankle pumps with max verbal and tactile cuing quad sets with max verbal cues heel slide max verbal cues and AA Patient educated on the importance of moving right LE and left UE. Patient was very groggy and medicated had pain throughout therapy on right LE. Nursing was present throughout session administering antibiotics and pain meds. Gown and gloves were worn throughout treatment due to MRSA. Patient left in bed properly positioned with nursing present. Physical Therapy Goals 1: Pt to complete bed mobility with Daniela 2: Pt to complete transfers with CGA and appropriate AD 3: Pt to ambulate 15' with CGA and appropriate AD Patient's Goals
--- NOTE | 2019-01-10 12:14 | Pharmacy Note ---
Vancomycin Management Note Vanco Dosing Note Vanco level today is 19.65, very little movement from yesterday 19.9. Keep dosing at 1g Q12h and check in 24 hrs. I remaining stable then may give a few days between checks. Renal function is good and stable. YEYO CORRAL Jan 10, 2019 12:14
[2019-01-10] MEDS: VANCOMYCIN(*) 1 GM VIAL 1 GM in NS(*) 0.9% 250 ML BAG 250 ML IVPB SCH (12:15)
[2019-01-11] MEDS: APAP/HYDROCODONE 325/7.5 TAB PO PRN ×5 (00:14→21:20)
[2019-01-11] MEDS: IMIPENEM IVPB SCH ×5 (00:18→23:34)
[2019-01-11] MEDS: MINI IVPB SCH ×5 (00:18→23:34)
[2019-01-11] MEDS: NS 0.9% IVPB SCH ×5 (00:18→23:34)
[2019-01-11] MEDS: CILASTA IVPB SCH ×5 (00:18→23:34)
[2019-01-11] MEDS: VANCOMYCIN(*) 1 GM VIAL 1 GM in NS(*) 0.9% 250 ML BAG 250 ML IVPB SCH ×2 (00:53→12:25)
[2019-01-11] MEDS: HYDROmorphone HCL 2 MG/ML SDV IVP PRN ×5 (01:22→22:02)
[2019-01-11 01:37] VITALS: BP 130/82
[2019-01-11 06:10] LABS: PLATELET COUNT, AUTOMATED 219 K/uL (150-450)
[2019-01-11] MEDS: PANTOPRAZOLE SOD 40 MG IV VIAL IVP SCH (08:57)
[2019-01-11] MEDS: DOCUSATE SODIUM 100 MG CAP PO SCH ×2 (08:57→21:05)
[2019-01-11] MEDS: INSULIN GLARGINE 100 U/ML 3 ML PEN SUBQ SCH (08:58)
[2019-01-11] MEDS: POLYETHYLENE GLYCOL 17 GM PKT PO SCH ×2 (08:58→21:05)
[2019-01-11] MEDS: ENOXAPARIN 40 MG/0.4ML SYR SC SCH (08:58)
[2019-01-11 10:19] VITALS: BP 137/72
[2019-01-11] MEDS: FUROSEMIDE 20 MG/2 ML VIAL IVP SCH (11:04)
[2019-01-11] MEDS ORDERED: HEPARIN FLSH (PORT) 500 UN/5ML ONE (11:07)
--- NOTE | 2019-01-11 13:02 | Hospitalist Progress Note ---
Subjective Progress Notes Subjective No new complaints. The patient does have intermittent pain to his surgical site as well as some phantom pain. Physical Exam Vital Signs Date Time Temp Pulse Resp B/P (MAP) Pulse Ox O2 Delivery O2 Flow Rate FiO2 01/11/19 10:19 98.8 87 22 137/72 (93) 96 Nasal Cannula 4.0 01/11/19 02:10 30.0 Intake and Output 01/11/19 07:03 Intake Total 1500 ml Output Total 1550 ml Balance -50 ml Intake Oral 450 ml IV Total 550 ml Blood Product 500 ml Output Urine Total 1550 ml General Appearance: Alert, Awake, No Acute Distress Neuro: Other Eyes: PERRLA Cardiovascular: Regular Rate and Rhythm Respiratory: Clear to Auscultation GI: Soft and Non-Tender Extremities: Warm, Perfused Integumentary: Other (The patient has a decubitus ulcer over his sacrum which is quarter sized and partial skin thickness. There is a small opening in the skin in the proximal cleft (about 1 cm.) as well.) Psych: Appropriate Mood & Affect Result Diagram: 01/11/1953801/11/19538 Assessment and Plan Problems: (1) Gangrene of right foot Status: Acute Assessment & Plan: He presented with gangrene of the right foot. He was started on empiric treatment with Primaxin and vancomycin. Blood cultures are growing Group B streptococcus and MRSA. Repeat cultures were drawn yesterday morning. Echocardiogram to evaluate the heart valves was negative for endocarditis. Dr. Sarkar (Surgery) performed amputation and then a BKA. (2) Sepsis Status: Acute Assessment & Plan: Resolved. Due to RLE gangrene. He did have hypothermia, an elevated lactate, and elevated WBC on admission. He received IV fluid resuscitation and antibiotics as noted above. He has received about 14 liters of IVF since admission, so will follow closely for fluid overload. Will give Lasix 20mg IV today. (3) ANEMIA, UNSPECIFIED Status: Acute Assessment & Plan: Most likely due to acute blood loss with surgeries and acute illness (sepsis). He was transfused 2 units PRBC 098/03. Watch labs closely. (4) DKA (diabetic ketoacidoses) Status: Acute Assessment & Plan: He presented with hyperglycemia and elevated anion gap (probable ketosis related to acute infection/starvation). He was placed on insulin drip and fluid resuscitation. His gap has closed. Lantus 20U and SSI #2. Chronically on metformin (will NOT resume at this time). Follow closely. (5) Hypothermia Status: Resolved Assessment & Plan: Resolved with active rewarming. (6) Slurred speech Status: Acute Assessment & Plan: Improving and essentially resolved. He had head CT which showed some chronic microvascular ischemic changes. MRI had no acute abnormalities. (7) Hypokalemia Assessment & Plan: He will receive IV replacement. Watch labs. Time Spent on Plan of Care: < 30 min Exam Sepsis Risk: No Definite Risk Problem Qualifiers (1) DKA (diabetic ketoacidoses): Diabetes mellitus type: type 2 Diabetes mellitus complication detail: without coma Qualified Codes: E11.10 - Type 2 diabetes mellitus with ketoacidosis without coma (2) Hypothermia: Encounter type: initial encounter Qualified Codes: T68.XXXA - Hypothermia, initial encounter ZACK LOPEZ MD Jan 11, 2019 13:02
--- NOTE | 2019-01-11 15:47 | General Surgery Progress Note ---
Subjective Progress Notes Subjective feels better after PRBC transfusion yesterday. Physical Exam Vital Signs Date Time Temp Pulse Resp B/P (MAP) Pulse Ox O2 Delivery O2 Flow Rate FiO2 01/11/19 10:19 98.8 87 22 137/72 (93) 96 Nasal Cannula 4.0 01/11/19 02:10 30.0 Intake and Output0 01/11/19 07:03 Intake Total 1500 ml Output Total 1550 ml Balance -50 ml Intake Oral 450 ml IV Total 550 ml Blood Product 500 ml Output Urine Total 1550 ml General Appearance: Alert, Awake, No Acute Distress, Afebrile Neuro: No Gross deficits Cardiovascular: Normal Rhythm & Peripheral Pulses Respiratory: No Respiratory Distress, Clear to Auscultation Musculoskeletal: No Weakness/Pain, Other (R knee immobilizer on , Right BKA dressing CDI.) Integumentary: Skin Intact without Lesion / Mass Psych: Alert & Oriented X3, Appropriate Mood & Affect Result Diagram: 01/11/19 0539 01/11/19 0539 Monitor Interpretation: Normal Sinus Rhythm Assessment and Plan Problems: (1) Gangrene of right foot Status: Acute Assessment & Plan: 53 yo male with extensive gangrene right foot who will require right below the knee amputation, likely an open approach. 01/06/19: i discussed condition at length with pt and . they would like to proceed with amputation. npo. iv abx. guillotine amp at ankle, then formal bka in a few days. 01/07/19: cont abx. diabetic diet. wound care. lovenox. formal bka in a few days. 01/08/19: improving. cont abx. diabetic diet. wound care. blood sugar control. formal bka, poss tomorrow. 01/09/19: cont abx, blood sugar control. bka on right today. 01/10/19: POD#1 formal Right BKA. Cont immobilizer, antbx. Plan dressing change early Saturday am with PT. Agree with transfusion. Discussed with Med team. 01/11/19: POD#2 right BKA. Cultures and path noted. Cont care plan as above. Cont to mobilize out of bed with PT. is interested in Rehab here in [place] rather than [place]. Time Spent: > 30 min Exam Sepsis Risk: No Definite Risk POPEYE COLON MD Jan 11, 2019 15:47
[2019-01-11] MEDS: MAG HYD/AL HYD/SIMETH 30ML UDC PO PRN (17:40)
[2019-01-11 19:19] VITALS: BP 137/85
[2019-01-12 00:15] VITALS: BP 126/84
[2019-01-12] MEDS: VANCOMYCIN(*) 1 GM VIAL 1 GM in NS(*) 0.9% 250 ML BAG 250 ML IVPB SCH ×3 (00:20→23:33)
[2019-01-12] MEDS: HYDROmorphone HCL 2 MG/ML SDV IVP PRN ×7 (00:52→16:36)
[2019-01-12] MEDS: APAP/HYDROCODONE 325/7.5 TAB PO PRN ×5 (05:13→22:36)
[2019-01-12] MEDS: NS 0.9% IVPB SCH ×3 (05:22→18:11)
[2019-01-12] MEDS: CILASTA IVPB SCH ×3 (05:22→18:11)
[2019-01-12] MEDS: IMIPENEM IVPB SCH ×3 (05:22→18:11)
[2019-01-12] MEDS: MINI IVPB SCH ×3 (05:22→18:11)
[2019-01-12 05:56] LABS: PLATELET COUNT, AUTOMATED 273 K/uL (150-450)
[2019-01-12 07:05] VITALS: BP 156/82
[2019-01-12] MEDS: MAG HYD/AL HYD/SIMETH 30ML UDC PO PRN (08:49)
[2019-01-12] MEDS: POLYETHYLENE GLYCOL 17 GM PKT PO SCH ×2 (08:53→21:42)
[2019-01-12] MEDS: DOCUSATE SODIUM 100 MG CAP PO SCH ×2 (08:53→21:42)
[2019-01-12] MEDS: FUROSEMIDE 20 MG/2 ML VIAL IVP SCH (08:54)
[2019-01-12] MEDS: PANTOPRAZOLE SOD 40 MG IV VIAL IVP SCH (08:54)
[2019-01-12] MEDS: ENOXAPARIN 40 MG/0.4ML SYR SC SCH (08:54)
[2019-01-12] MEDS: INSULIN GLARGINE 100 U/ML 3 ML PEN SUBQ SCH (08:55)
--- NOTE | 2019-01-12 09:52 | General Surgery Progress Note ---
Subjective Progress Notes Subjective reports ongoing indigestion, no NV. Physical Exam Vital Signs Date Time Temp Pulse Resp B/P (MAP) Pulse Ox O2 Delivery O2 Flow Rate FiO2 01/12/19 07:05 98.6 88 156/82 (106) 96 Oxy Mask 3.0 01/12/19 00:15 16 01/11/19 02:10 30.0 Intake and Output 01/12/19 07:03 Intake Total 1320 ml Output Total 1000 ml Balance 320 ml Intake Oral 1320 ml Output Urine Total 1000 ml General Appearance: Alert, Awake, No Acute Distress, Afebrile Neuro: No Gross deficits Cardiovascular: Normal Rhythm & Peripheral Pulses Respiratory: No Respiratory Distress GI: Soft and Non-Tender Musculoskeletal: No Weakness/Pain, Other (Right BKA incision CDI, no s/s infection or hematoma. Superficial abrasion proximal knee 1.5 cm, chronic.) Integumentary: Skin Intact without Lesion / Mass Psych: Alert & Oriented X3, Appropriate Mood & Affect Result Diagram: 01/12/1951401/12/19514 Monitor Interpretation: Normal Sinus Rhythm Assessment and Plan Problems: (1) Gangrene of right foot Status: Acute Assessment & Plan: 53 yo male with extensive gangrene right foot who will require right below the knee amputation, likely an open approach. 01/06/19: i discussed condition at length with pt and . they would like to proceed with amputation. npo. iv abx. guillotine amp at ankle, then formal bka in a few days. 01/07/19: cont abx. diabetic diet. wound care. lovenox. formal bka in a few days. 01/08/19: improving. cont abx. diabetic diet. wound care. blood sugar control. formal bka, poss tomorrow. 01/09/19: cont abx, blood sugar control. bka on right today. 01/10/19: POD#1 formal Right BKA. Cont immobilizer, antbx. Plan dressing change early Saturday am with PT. Agree with transfusion. Discussed with Med team. 01/11/19: POD#2 right BKA. Cultures and path noted. Cont care plan as above. Cont to mobilize out of bed with PT. is interested in Rehab here in [place] rather than [place]. 01/12/19 POD#3 Right BKA, dressing changed with PT this am. Wound looks really good, cont knee immobilizer. Would favor removal of central line/both pe ripheral hep locks and place PICC.> Time Spent: > 30 min Exam Sepsis Risk: No Definite Risk POPEYE COLON MD Jan 12, 2019 09:52
--- NOTE | 2019-01-12 10:15 | Hospitalist Progress Note ---
Subjective Progress Notes Subjective This patient was admitted for a gangrenous foot. He had no acute changes overnight. Patient Complains of: Cardiovascular: No: Chest Pain Respiratory: No: Shortness of Breath Physical Exam Vital Signs Date Time Temp Pulse Resp B/P (MAP) Pulse Ox O2 Delivery O2 Flow Rate FiO2 01/12/19 07:05 98.6 88 156/82 (106) 96 Oxy Mask 3.0 01/12/19 00:15 16 01/11/19 02:10 30.0 Intake and Output 01/12/19 07:03 Intake Total 1320 ml Output Total 1000 ml Balance 320 ml Intake Oral 1320 ml Output Urine Total 1000 ml Cardiovascular: Regular Rate and Rhythm Respiratory: Clear to Auscultation Result Diagram: 01/12/1915 01/12/19514 Monitor Interpretation: Normal Sinus Rhythm Assessment and Plan Problems: (1) Gangrene of right foot Status: Acute Assessment & Plan: He presented with gangrene of the right foot. He was has been on empiric treatment with Primaxin and vancomycin. Blood cultures have grown Group B streptococcus and MRSA. Repeat cultures are negative. An echocardiogram to evaluate the heart valves was negative for endocarditis. Dr. Sarkar (Surgery) performed amputation and then a BKA. We will discontinue the Primaxin today. He will need to remain on vancomycin for 10-14 days from the negative cultures. (2) Sepsis Status: Acute Assessment & Plan: Resolved. (3) ANEMIA, UNSPECIFIED Status: Acute Assessment & Plan: He did receive 2 units of red cells on 01/10. His Hgb has remained stable since. (4) DKA (diabetic ketoacidoses) Status: Acute Assessment & Plan: He presented with hyperglycemia and elevated anion gap (probable ketosis related to acute infection/starvation). He was treated with an insulin drip and fluid resuscitation. He is now on Lantus and sliding scale level #2. (5) Hypothermia Status: Resolved Assessment & Plan: Resolved with active rewarming. (6) Slurred speech Status: Acute Assessment & Plan: Improving and essentially resolved. He had head CT which showed some chronic microvascular ischemic changes. MRI had no acute abnormalit ies. (7) Hypokalemia Assessment & Plan: He will receive IV replacement. Watch labs. Exam Sepsis Risk: No Definite Risk Problem Qualifiers (1) DKA (diabetic ketoacidoses): Diabetes mellitus type: type 2 Diabetes mellitus complication detail: without coma Qualified Codes: E11.10 - Type 2 diabetes mellitus with ketoacidosis without coma (2) Hypothermia: Encounter type: initial encounter Qualified Codes: T68.XXXA - Hypothermia, initial encounter AMANDA HERNANDEZ DO Jan 12, 2019 10:15
[2019-01-12] MEDS: diphenhydrAMINE 25 MG CAP PO PRN ×2 (11:34→23:32)
--- NOTE | 2019-01-12 13:52 | NUR ---
Physical Therapy Impression Patient needed co treatment due to increased weakness and decreased ability to perform transfers. Bed mobility is max A x 3 people to go from supine to sit and max A x 4 to go from sit to supine. Sitting EOB with 2 people and mod A to sit EOB x 10 minutes with STS lift in front of patient for stability. Tried to stand patient but unable to perform transfer x 2 attempts. Patient needs improved strength to perform a transfer with STS lift. Patient needs acute primary health care nurse rehab. Physical Therapy Goals 1: Pt to complete bed mobility with Daniela 2: Pt to complete transfers with CGA and appropriate AD 3: Pt to ambulate 15' with CGA and appropriate AD Patient's Goals
--- NOTE | 2019-01-12 15:55 | NUR ---
Occupational Therapy Impression Total Ax3 bed mobility supine<>sit and sit<>supine. Seated EOB [id number] with CGA. Unable to tolerate full upright stand with EZ lift this date. AAROM/PROM R) UE and AROM bilateral hands/wrist. Pt would benefit from acute rehab to optimize (I) and strength for ADLs/IADLs. Occupational Therapy Goals 1) Pt will be Min A UB/LB dressing. 2) Pt will be Min A toilet task. Patient's Goal
--- NOTE | 2019-01-12 16:37 | NUR ---
ST IMPRESSION Cognitive linguistic and motor speech tx completed at the bedside, including therapeutic evaluation using majority of assessment items from the MoCA, Version 7.2. Pt achieved a 9/25 possible points administered, w/ 5 points excluded d/t difficulty with fine motor skills for completion of the visuospatial and exec fxn subtests. Deficits were widespread, including impairments in focused attention, sustained attention, immediate recall, short-term recall, auditory processing, problem solving, organization, and planning skills. Foundational limitations in attention appear to be negatively impacting retention of novel information, [id number] skills for efficient problem solving, processing auditory information for execution of verbal instructions, and consistent orientation to temporal concepts. Speech production remains mildly imprecise, though improved vs initial assessment. Pt required continuous cues for implementation of motor speech strategies. Pt acknowledges deficits, and is motivated to improve speaking intelligibility, attention span, short-term memory, and higher level problem solving skills. Pt appears to be functioning moderate to severely below baseline from a cognitive linguistic perspective. He would benefit from intensive speech-language pathology services to support return to [facility], with current recommendation for acute rehab placement at d/c.
[2019-01-12 16:41] VITALS: BP 144/78
--- NOTE | 2019-01-12 17:04 | RADIOLOGY IMAGING REPORT ---
FACILITY: [facility] PATIENT NAME: Shayne Fairchild : 1965 MR: [id number] V: [id number] EXAM DATE: ORDERING PHYSICIAN: POPEYE COLON TECHNOLOGIST: Location: [facility] Patient: Shayne Fairchild : 1965 Visit/Account:[id number] Date of Sevice: 01/12/2019 Exam type: PICC LINE INSERTION, US GUIDANCE VASCULAR ACCESS History: assisted abx Comparison: None. Findings: Informed consent was obtained. The patient's left arm was prepped and draped in usual sterile fashio n. Local anesthesia was accomplished with 1% lidocaine. Under direct and continuous sonographic darwin dance a micropuncture needle was advanced percutaneously into the patent left basilic vein. Under so nographic and fluoroscopic guidance a guidewire was advanced percutaneously through the needle to the caval atrial junction. A peel-away sheath was advanced over the guidewire. The guidewire was remov ed and a 39 cm long trimmed 5 [place] double lumen power PICC was inserted through the peel-away sheat h with the distal tip resting in the superior vena cava. The peel-away sheath was removed. The prox imal portion of the PICC line was adhered the patient's arm the sterile dressing. Both lumens of the power PICC were flushed with 5 mL of saline flush. The procedure was accomplished without apparent complication. The sonographic images were saved to PACS. The dose area product was 277.96 micro-Gra y per meter squared. IMPRESSION: 1. Successful fluoroscopically and sonographically guided placement of a 39 cm long trimmed 5 [place] double lumen power PICC inserted via the patent left basilic vein with the distal tip resting in sup erior vena cava Report Dictated By: Italia Balderrama MD at 01/12/2019 4:52 PM Report E-Signed By: Italia Balderrama MD at 01/12/2019 4:55 PM WSN:[email or web address]
--- NOTE | 2019-01-12 17:04 | RADIOLOGY IMAGING REPORT ---
[facility] PATIENT NAME: Shayne Fairchild : 1965 MR: [id number] V: [id number] EXAM DATE: ORDERING PHYSICIAN: POPEYE COLON TECHNOLOGIST: [place] [facility] [place] Shayne Fair[place] : 1965 Visit/Account:[id number] Date of Sevice: 01/12/2019 Exam type: PICC LINE INSERTION, US GUIDANCE VASCULAR ACCESS History: halfway abx Comparison: None. Findings: Informed consent was obtained. The patient's left arm was prepped and draped in usual sterile fashio n. Local anesthesia was accomplished with 1% lidocaine. Under direct and continuous sonographic darwin dance a micropuncture needle was advanced percutaneously into the patent left basilic vein. Under so nographic and fluoroscopic guidance a guidewire was advanced percutaneously through the needle to the caval atrial junction. A peel-away sheath was advanced over the guidewire. The guidewire was remov ed and a 39 cm long trimmed 5 [place] double lumen power PICC was inserted through the peel-away sheat h with the distal tip resting in the superior vena cava. The peel-away sheath was removed. The prox imal portion of the PICC line was adhered the patient's arm the sterile dressing. Both lumens of the power PICC were flushed with 5 mL of saline flush. The procedure was accomplished without apparent complication. The sonographic images were saved to PACS. The dose area product was 277.96 micro-Gra y per meter squared. IMPRESSION: 1. Successful fluoroscopically and sonographically guided placement of a 39 cm long trimmed 5 [place] double lumen power PICC inserted via the patent left basilic vein with the distal tip resting in sup erior vena cava Report Dictated By: Italia Balderrama MD at 01/12/2019 4:52 PM Report E-Signed By: Italia Balderrama MD at 01/12/2019 4:55 PM WSN:[email or web address]
[2019-01-12 23:53] VITALS: BP 152/96
[2019-01-13] MEDS: HYDROmorphone HCL 2 MG/ML SDV IVP PRN (01:50)
[2019-01-13] MEDS: APAP/HYDROCODONE 325/7.5 TAB PO PRN ×4 (02:54→19:33)
[2019-01-13 03:53] VITALS: BP 145/88
[2019-01-13] MEDS: diphenhydrAMINE 25 MG CAP PO PRN ×2 (05:43→20:33)
--- NOTE | 2019-01-13 08:41 | OPERATIVE REPORT 1 ---
EVENT DATE: January 13, 2019 SURGEON: Colt Sarkar MD ANESTHESIOLOGIST: Nicko Flowers MD ANESTHESIA: General. NEWS COPY EDITOR: None. PREOPERATIVE DIAGNOSIS Infected right foot. POSTOPERATIVE DIAGNOSIS Infected right foot. PROCEDURE PERFORMED Right [id number]-rrub amputation. FLUIDS IV crystalloid. ESTIMATED BLOOD LOSS 600 mL. SPECIMENS Right stump. COMPLICATIONS None. INDICATIONS This is a 53-year old uncontrolled diabetic male who present with a gangrenous right foot and sepsis. Guillotine amputation was performed several days prior. Patient is now ready for the definitive [id number] amputation. Risks and benefits of the procedure were explained and consent was signed. DESCRIPTION OF PROCEDURE Patient was taken to the operating room and placed in the supine position. General anesthesia was administered per Anesthesia team. He was prepped and draped in normal sterile fashion. The leg was measured and marked for the stump to extend 10 cm below the tibial tuberosity. Tourniquet was turned up to 250. This would later be 300 and then 350 as the patient did continue to have bleeding. Incision was made. Sharp dissection was carried through the soft tissue. The tibia was freed from surrounding tissue with a periosteal elevator and pneumatic saw was used to divide the tibia 1 cm proximal to the anterior skin incision. Tissue was freed from the fibula and this was divided with the pneumatic saw 1 cm above where the tibia was divided. Dissection continued through the soft tissue. Vessels that were bleeding were clamped. The specimen was removed. 2-0 Vicryl stitches were then used to stick-tie the vasculature. The tibial nerve was placed on stretch. 2-0 Vicryl stitch was used to ligate it and it was divided sharply and allowed to retract. A bevel was created at the anterior aspect of the tibia and a rasp was used to smooth the edges of the tibia and fibula. The tourniquet was let down. Any further bleeding was controlled with electrocautery and 2-0 Vicryl stitches. Musculature of the posterior flap was composed of the gastrocnemius. This was trimmed to appropriate size. Again, hemostasis was assured. The flap was secured with 2-0 Vicryl interrupted stitches to secure the fascia of the flap with the anterior fascia. The skin was then approximated with interrupted 2-0 Nylon stitches. Appropriate dressings were applied. Patient tolerated the procedure well and there were no complications. [facility]
[2019-01-13 09:31] VITALS: BP_SYST 148; BP_SYST 189; BP_DIAS 105; BP_DIAS 95
[2019-01-13] MEDS: ENOXAPARIN 40 MG/0.4ML SYR SC SCH (09:38)
[2019-01-13] MEDS: POLYETHYLENE GLYCOL 17 GM PKT PO SCH ×2 (09:39→20:34)
[2019-01-13] MEDS: PANTOPRAZOLE SOD 40 MG IV VIAL IVP SCH (09:39)
[2019-01-13] MEDS: DOCUSATE SODIUM 100 MG CAP PO SCH ×2 (09:40→20:33)
[2019-01-13] MEDS: INSULIN GLARGINE 100 U/ML 3 ML PEN SUBQ SCH (09:40)
--- NOTE | 2019-01-13 10:02 | NUR ---
Occupational Therapy Impression Total Ax3 bed mobility supine<>sit and sit<>supine. Seated EOB [id number] with CGA. Unable to tolerate full upright stand with EZ lift this date. AAROM/PROM R) UE and AROM bilateral hands/wrist. Pt would benefit from acute rehab to optimize (I) and strength for ADLs.IADLs. Occupational Therapy Goals 1) Pt will be Min A UB/LB dressing. 2) Pt will be Min A toilet task. Patient's Goal
--- NOTE | 2019-01-13 10:42 | NUR ---
Physical Therapy Impression PT/OT co-treat and time split for billing purposes. Pt was agreeable to attempt sitting at R) side of bed with L)UE encouraged to assist more by pulling up using side rail. Pt does have pain and decreased motion in R) UE due to lengthy period of time laying on it before he was found. Please refer to OT note for more details. Pt required 2 person Max assist to transfer to sit at EOB, however, once he was up and able to place weight through L) LE he was indep with sitting x 15 minutes. Pt then attempted sit to stand with EZ lift device. Pt is fairly short-legged and has difficulty reaching the floor with bed in lowest setting. With EZ lift, pt still had difficulty pulling to stand but was very motivated and attempted this motion x 3 reps with Max assist of 2 (PT/OT) to allow for pericare and bedding change as much as possible, with additional assist of nursing staff. Will attempt to stand with platform step under foot at next visit and potentially switch to lower bed option if standing is still difficult. Physical Therapy Goals 1: Pt to complete bed mobility with Daniela 2: Pt to complete transfers with CGA and appropriate AD 3: Pt to ambulate 15' with CGA and appropriate AD Patient's Goals
--- NOTE | 2019-01-13 12:06 | Hospitalist Progress Note ---
Subjective Progress Notes Subjective His swelling is improving in the LE's. No cp/sob. Physical Exam Vital Signs Date Time Temp Pulse Resp B/P (MAP) Pulse Ox O2 Delivery O2 Flow Rate FiO2 01/13/19 09:31 98.4 91 22 189/105 (133) 93 Nasal Cannula 3.0 01/11/19 02:10 30.0 Intake and Output 01/13/19 07:03 Intake Total 485 ml Output Total 2250 ml Balance -1765 ml Intake Oral 120 ml IV Total 365 ml Output Urine Total 2250 ml # Bowel Movements 2 General Appearance: Alert, Awake Cardiovascular: Regular Rate and Rhythm Respiratory: Clear to Auscultation Extremities: Edema (1-2+ pitting in feet/ankle. Overall less swelling in legs) Result Diagram: 01/12/19 0515 01/13/19 1110 Monitor Interpretation: Normal Sinus Rhythm Assessment and Plan Problems: (1) Gangrene of right foot Status: Acute Assessment & Plan: He presented with gangrene of the right foot. He was has been on empiric treatment with Primaxin and vancomycin. Blood cultures have grown Group B streptococcus and MRSA. Repeat cultures are negative. He is afebrile and WBC wnl. An echocardiogram to evaluate the heart valves was negative for endocarditis. Dr. Sarkar (Surgery) performed amputation 01/07 and planning on BKA 01/09. Primaxin stopped on 01/12. He will need to remain on vancomycin for 10-14 days from the negative cultures. PICC line placed on 01/12. (2) Sepsis Status: Acute Assessment & Plan: Resolved. Due to RLE gangrene. He did have hypothermia, an elevated lactate, and elevated WBC on admission. He received IV fluid resuscitation and antibiotics as noted above. Resolved. He has received about 14 liters of IVF since admission, so now on Lasix 20mg IV daily. Will add spironolactone 50mg a day. (3) ANEMIA, UNSPECIFIED Status: Acute Assessment & Plan: He did receive 2 units of red cells on 01/10. His Hgb has remained stable since. (4) DKA (diabetic ketoacidoses) Status: Resolved Assessment & Plan: Chronically on metformin. He presented with hyperglycemia and elevated anion gap (probable ketosis related to acute infection/starvation). He was treated with an insulin drip and fluid resuscitation. He is now on Lantus and sliding scale level #2. Glucose 68-133. Will switch back to metformin tomorrow at 500mg bid and then titrate up as needed. (5) Hypothermia Status: Resolved Assessment & Plan: Resolved with active rewarming. (6) Slurred speech Status: Resolved Assessment & Plan: Improving and essentially resolved. He had head CT which showed some chronic microvascular ischemic changes. MRI had no acute abnormalities. (7) Hypokalemia Status: Resolved Assessment & Plan: He will receive IV replacement. Watch labs. Exam Sepsis Risk: No Definite Risk Problem Qualifiers (1) DKA (diabetic ketoacidoses): Diabetes mellitus type: type 2 Diabetes mellitus complication detail: without coma Qualified Codes: E11.10 - Type 2 diabetes mellitus with ketoacidosis without coma (2) Hypothermia: Encounter type: initial encounter Qualified Codes: T68.XXXA - Hypothermia, initial encounter CONOR FONG MD Jan 13, 2019 12:06
[2019-01-13] MEDS: FUROSEMIDE 20 MG/2 ML VIAL IVP SCH (12:28)
[2019-01-13] MEDS: SPIRONOLACTONE 25 MG TAB PO SCH (12:28)
[2019-01-13 12:35] LABS: PLATELET COUNT, AUTOMATED 342 K/uL (150-450)
[2019-01-13] MEDS: VANCOMYCIN(*) 1 GM VIAL 1 GM in NS(*) 0.9% 250 ML BAG 250 ML IVPB SCH (14:02)
[2019-01-13 14:07] VITALS: BP 165/98
--- NOTE | 2019-01-13 14:13 | NUR ---
Unable to zero bed d/t patient being unable to get OOB, will use this as baseline for monitoring weight Addendum: 01/13/19 at 1413 by MIGUELITO ARNDT RN Amended: Links added.
--- NOTE | 2019-01-13 14:37 | NUR ---
ST IMPRESSION Pt with much improved attention span and auditory processing vs prior encounter. Mod assist provided to support sustained attention to structured tasks, including repetition and simplification of information, and direct verbal instruction/redirection when the pt became distracted to external stimuli. Pt cont to be somewhat disoriented to temporal concepts, but with improved reference to external visual aides for recognition of date and recent events. Pt able to retain current date and hospitalization timeline for up to 5 min interval with use of spaced retrieval techniques. Speech production remains mildly imprecise, though articulatory precision much improved vs prior tx session. Intelligibility calculated at 95% in convo. Pt continues to function moderate to severely below baseline, with ongoing rec for acute rehab placement at d/c.
--- NOTE | 2019-01-13 16:23 | General Surgery Progress Note ---
Subjective Progress Notes Subjective feeling progressively better. pain controlled. Physical Exam Vital Signs Date Time Temp Pulse Resp B/P (MAP) Pulse Ox O2 Delivery O2 Flow Rate FiO2 01/13/19 14:07 98.7 93 20 165/98 (120) 96 Nasal Cannula 3.0 01/11/19 02:10 30.0 Intake and Output 01/13/19 07:03 Intake Total 485 ml Output Total 2250 ml Balance -1765 ml Intake Oral 120 ml IV Total 365 ml Output Urine Total 2250 ml # Bowel Movements 2 General Appearance: No Acute Distress, Afebrile Cardiovascular: Other (reg rate) Extremities: Other (right stump dressed and in immobilizer) Result Diagram: 01/13/19 1223 01/13/19 1110 Monitor Interpretation: Normal Sinus Rhythm Assessment and Plan Problems: (1) Gangrene of right foot Status: Acute Assessment & Plan: 53 yo male with extensive gangrene right foot who will require right below the knee amputation, likely an open approach. 01/06/19: i discussed condition at length with pt and . they would like to proceed with amputation. npo. iv abx. guillotine amp at ankle, then formal bka in a few days. 01/07/19: cont abx. diabetic diet. wound care. lovenox. formal bka in a few days. 01/08/19: improving. cont abx. diabetic diet. wound care. blood sugar control. formal bka, poss tomorrow. 01/09/19: cont abx, blood sugar control. bka on right today. 01/10/19: POD#1 formal Right BKA. Cont immobilizer, antbx. Plan dressing change early Saturday am with PT. Agree with transfusion. Discussed with Med team. 01/11/19: POD#2 right BKA. Cultures and path noted. Cont care plan as above. Cont to mobilize out of bed with PT. is interested in Rehab here in [place] rather than [place]. 01/12/19 POD#3 Right BKA, dressing changed with PT this am. Wound looks really good, cont knee immobilizer. Would favor removal of central line/both peripheral hep locks and place PICC.> 01/13/19: improving. diabetic diet. abx per med team. wound care. PT. Exam Sepsis Risk: No Definite Risk ESTRELLITA FIGUEROA Jan 13, 2019 16:23
[2019-01-13] MEDS: INSULIN HUM LISPRO 100 UN/ML 3 ML VIAL SUBQ PRN (17:14)
[2019-01-13 18:59] VITALS: BP 128/66
[2019-01-14] MEDS: APAP/HYDROCODONE 325/7.5 TAB PO PRN ×4 (00:14→17:29)
[2019-01-14] MEDS: HYDROmorphone HCL 2 MG/ML SDV IVP PRN ×3 (00:14→19:59)
[2019-01-14] MEDS: VANCOMYCIN(*) 1 GM VIAL 1 GM in NS(*) 0.9% 250 ML BAG 250 ML IVPB SCH ×2 (00:15→12:36)
[2019-01-14 04:00] VITALS: BP 169/91
[2019-01-14] MEDS: diphenhydrAMINE 25 MG CAP PO PRN (04:27)
[2019-01-14] MEDS: DOCUSATE SODIUM 100 MG CAP PO SCH ×3 (08:11→21:00)
[2019-01-14] MEDS: POLYETHYLENE GLYCOL 17 GM PKT PO SCH ×2 (08:11→21:00)
[2019-01-14] MEDS: metFORMIN HCL XR 500 MG TABCR PO SCH ×2 (08:11→19:59)
[2019-01-14] MEDS: SPIRONOLACTONE 25 MG TAB PO SCH (08:11)
[2019-01-14] MEDS: PANTOPRAZOLE SOD 40 MG IV VIAL IVP SCH (08:12)
[2019-01-14] MEDS: FUROSEMIDE 20 MG/2 ML VIAL IVP SCH (08:12)
[2019-01-14] MEDS: ENOXAPARIN 40 MG/0.4ML SYR SC SCH (08:14)
[2019-01-14 08:25] VITALS: BP 170/94
--- NOTE | 2019-01-14 11:20 | Hospitalist Progress Note ---
Subjective Progress Notes Subjective He is much more awake and alert. He has some chronic right shoulder pain, which seems to be worse for him. It has limited his use of RUE. Physical Exam Vital Signs Date Time Temp Pulse Resp B/P (MAP) Pulse Ox O2 Delivery O2 Flow Rate FiO2 01/14/19 08:25 99.1 89 20 170/94 (119) 95 Nasal Cannula 3.0 01/11/19 02:10 30.0 Intake and Output 01/14/19 07:03 Intake Total 1810 ml Output Total 1900 ml Balance -90 ml Intake Oral 1550 ml IV Total 260 ml Output Urine Total 1900 ml General Appearance: Alert, Awake Cardiovascular: Regular Rate and Rhythm Respiratory: Clear to Auscultation Chest: No Tenderness GI: Soft and Non-Tender Musculoskeletal: Other (Significant limitation of ROM right shoulder especially abduction/internal and external rotation. No callor/effusion/erythema.) Result Diagram: 01/13/19 1223 01/13/19 1110 Assessment and Plan Problems: (1) Gangrene of right foot Status: Acute Assessment & Plan: He presented with gangrene of the right foot. He was on empiric treatment with Primaxin and vancomycin. Blood cultures have grown Group B streptococcus and MRSA. Repeat cultures are negative. He is afebrile and WBC in normal range. An echocardiogram to evaluate the heart valves was negative for endocarditis. Dr. Sarkar (Surgery) performed amputation 01/07 and revision to BKA 01/09. Primaxin stopped on 01/12. He will need to remain on vancomycin for 10-14 days from the negative cultures. PICC line placed on 01/12. (2) Sepsis Status: Acute Assessment & Plan: Resolved. Due to RLE gangrene. He did have hypothermia, an elevated lactate, and elevated WBC on admission. He received IV fluid resusc itation and antibiotics as noted above. He has received about 14 liters of IVF since admission, so now on Lasix 20mg IV daily and spironolactone 50mg PO qday. (3) ANEMIA, UNSPECIFIED Status: Acute Assessment & Plan: Due to acute illness and blood loss with surgeries. He did receive 2 units of red cells on 01/10. His Hgb/Hct have remained stable since. (4) DKA (diabetic ketoacidoses) Status: Resolved Assessment & Plan: Chronically on metformin. He presented with hyperglycemia and elevated anion gap (probable ketosis related to acute infection/starvation). He was treated with an insulin drip and fluid resuscitation. He is now on Lantus and sliding scale level #2. He has been switched back to metformin 500mg BID. Will titrate up as needed. (5) Hypothermia Status: Resolved Assessment & Plan: Resolved with active rewarming. (6) Hypokalemia Status: Resolved Assessment & Plan: Resolved. Watch labs. (7) Shoulder pain Status: Chronic Assessment & Plan: He appears to have some significant disability with the shoulder. It sounds like much of this may be chronic, but exacerbated by the acute illness. Will check x-rays. May need orthopedic evaluation/specific PT for it as well. Exam Sepsis Risk: No Definite Risk Problem Qualifiers (1) DKA (diabetic ketoacidoses): Diabetes mellitus type: type 2 Diabetes mellitus complication detail: without coma Qualified Codes: E11.10 - Type 2 diabetes mellitus with ketoacidosis wit hout coma (2) Hypothermia: Encounter type: initial encounter Qualified Codes: T68.XXXA - Hypothermia, initial encounter SUSAN LOPEZ MD Jan 14, 2019 11:20
--- NOTE | 2019-01-14 12:29 | NUR ---
Physical Therapy Impression PT/OT co-treat for pt safety and time split for billing purposes. Pt demos much more engagement in participation when given [id number] cues and increased time to process. Pt did still, at points of the transfer, require 2 person Mod/Max assist to completely transition to sitting at edge of bed. Pt had 4"platform placed under L) foot to better engage ability to bear weight through L) LE. Pt was instructed on unweighting bottom, such that he could scoot sideways up towards head of bed. PT provided Max assist with this skill and OT provided guidance with draw sheet and repositioning sheet and chucks pad gradually as we scooted up. Pt tolerated this motion x 6 reps. Pt then required Mod/Max assist x 2 to return sit to supine and participated further in scooting up in bed by using L) foot for leverage. Pt also noted to have gradually decreasing edema in LE's and scrotal area, which will certainly assist with pt's improvement in functional mobility and this continues to resolve. Physical Therapy Goals 1: Pt to complete bed mobility with Daniela 2: Pt to complete transfers with CGA and appropriate AD 3: Pt to ambulate 15' with CGA and appropriate AD Patient's Goals
[2019-01-14] MEDS: INSULIN HUM LISPRO 100 UN/ML 3 ML VIAL SUBQ PRN (12:42)
--- NOTE | 2019-01-14 13:18 | NUR ---
Occupational Therapy Impression Max Ax2 supine to sit and sit to supine. Increased initiation of UEs for bed mobility this tx. Max Ax1-2 lateral scoot foot of bed<>to HOB. AAROM/AROM to B UEs with improved AROM and tolerance. Min A donning gown with improved initiation for ADLs. Pt demonstrating overall improved initiation, strength, and tolerance for activity this date. Recommend acute rehab for intensive therapies and return to high OF. Occupational Therapy Goals 1) Pt will be Min A UB/LB dressing. 2) Pt will be Min A toilet task. Patient's Goal
--- NOTE | 2019-01-14 13:27 | RADIOLOGY IMAGING REPORT ---
FACILITY: [facility] [place] PATIENT NAME: Shayne Fairchild : 1965 MR: [id number] V: [id number] EXAM DATE: ORDERING PHYSICIAN: SUSAN LOPEZ TECHNOLOGIST: Location: [facility] - [place], [place] Patient: Shayne Fairchild : 1965 Visit/Account:[id number] Date of Sevice: 01/14/2019 SHOULDER MIN 2 VIEWS RIGHT HISTORY: right shoulder pain/immobility Additional history: None COMPARISON: None. FINDINGS: Two views right shoulder are unremarkable. No appreciable arthritic changes are seen and the joint s pace is well-maintained. No evidence of subluxation. IMPRESSION: Radiographically normal right shoulder Report Dictated By: Gerard Hall MD at 01/14/2019 1:17 PM Report E-Signed By: Gerard Hall MD at 01/14/2019 1:18 PM WSN:[id number]
[2019-01-14] MEDS: NS(*) 0.9% 500 ML BAG 500 ML IV PRN (13:54)
[2019-01-14 14:05] VITALS: BP 136/64
--- NOTE | 2019-01-14 15:12 | Medical Nutrition Therapy ---
Nutrition Anthropometrics Height (Inches): 65.00 Height (Calculated Centimeters: 165.025896 Weight (Pounds): 276 Weight (Calculated Kilograms): 125.191 BMI: 42 Hasmukh Nutrition Score: Probably Inadequate Hasmukh Nutrition Risk Score: 12 Dietary Referral Nutrition Risk Factors: Nutrition Risk Comment: Physical Findings Physical Appearance: Morbidly Obese 40+ Skin Appearance Skin Appearance: Edema Edema Location Modifier: Left Edema Location: Lower Extremity Type of Edema: Degree of Edema: 3+ Gastrointestinal Symptoms GI Symtoms: Change in Bowel Pattern Tube Present: Bowel Sounds: Recent Bowel Pattern: Stool Characteristics: Nutritional Diagnosis Nutritional Risk Acuity 2: Abcess/Non-Healing Wound, Sepsis Past Medical History: DM2 Nutritional Acuity: 2-Moderate Nutrition Diagnosis: Increased Nutrient Needs Nutrition Etiology: Physiological Causes Nutrition Problem/Etiology/Sym: increased protein requirement for planned below the knee amputation and sepsis Energy Requirement: 2029 ([place] Equation (adjusted)) Protein Requirement: 115 (115-140g/day (1-1.4g/kg)) Fluid Requirement: 2030 (1mL/kcal) Diet Type: Diabetic Nutrition Intervention: Teaching, Vit/min support Diet Comment To RSA: DELIVER FAUSTO ON BREAKFAST AND DINNER TRAYS Nutrition Monitoring & Eval RD Patient Assessment Time: [address] Assessment Type: RD Education Patient Nutrition Acuity: 2-Moderate Follow Up Date: Jan 19, 2019 Nutritional Comment: 01/06/19: Pt admit for AMS/sepsis/DKA gangrene foot. Plan is for BKA. Pt currently NPO. Current wt 252 lbs with RLE 2+ pitting and bilateral feet 3+ pitting, and bilateral arm non pitting edema. K+ slightly low. BGs elevated. Neutrophils elevated. Pertinent rx include vancomycin, imipenum insulin. Pt has increased protein requirements r/t sepsis and will need additional protein following BKA procedure. Will continue to monitor.GENE 01/09/19: Pt currently s/p foot amputation and scheduled for BKA today. BGs running high, CRP elevated, neutrophils elevated but trending down. Has RLE 2+, LLE 3+, and bilateral arm 1+ edema. Current meal intake averaging 75%, on ADA diet. Spoke briefly with pt this afternoon. Discussed importance of getting adequate protein for healing after surgery. Discussed foods high in protein. Following surgery will add Fausto to promote wound healing. Will continue to follow.GENE 01/14/19: Follow-up w/ pt to discuss importance of protein for wound healing. Pt agreeable to Fausto. Noted significant edema, significant weight gain from 01/05-01/14/2019 of 24 pounds. Currently receiving diuretics. Eating fairly well, average intake is 72%. Continues to receive Fausto. Will continue to monitor intake, weight, and bowel movements. -DB COLLADO Jan 14, 2019 15:12
[2019-01-14 19:37] VITALS: BP 174/88
[2019-01-14 23:55] VITALS: BP 154/71
[2019-01-15] MEDS: VANCOMYCIN(*) 1 GM VIAL 1 GM in NS(*) 0.9% 250 ML BAG 250 ML IVPB SCH ×3 (00:12→23:57)
[2019-01-15] MEDS: APAP/HYDROCODONE 325/7.5 TAB PO PRN ×4 (03:02→21:20)
[2019-01-15] MEDS: diphenhydrAMINE 25 MG CAP PO PRN ×2 (03:12→09:37)
--- NOTE | 2019-01-15 03:50 | NUR ---
I WAS CALLED INTO THE PATIENT ROOM BY THE PATIENTS AND SHE TOLD ME THAT HIS BRACE NEEDED TO BE PUT BACK ON, AND THE PATIENT NEEDED SOME MORE MEDICINE. ANOTHER NURSE BRENDEN AND I HAD RECENTLY ADJUSTED THIS BRACE SO I EXPLAINED TO THE PATIENT AND THE THAT I WOULD ADJUST AGAIN, BUT IT IS GOING TO FIT DIFFERENTLY BECAUSE OF THE SCROTAL EDEMA THE BRACE CANNOT BE UP HIGH THE PATIENTS WANTED. AT THIS TIME THE PATIENTS (DEEPTHI) SAID SHE WOULD NOT START YELLING IN THIS HOSPITAL AND THAT THE PT AND OTHER NURSE WERE DOING IT DIFFERENTLY. I STATED THAT I WAS WORRIED ABOUT PRESSURE ON HIS SCROTAL AREA BECAUSE THE BRACE IS RATHER HARD, AND THE SKIN IS SOFT, SO I DID NOT FEEL COMFORTABLE WITH THE EDEMATOUS PART EVEN RESTING SLIGHTLY ON THE BRACE, AT THIS TIME DEEPTHI LEFT THE ROOM CRYING AND REPORTED TO THE NURSES IN THE SANDOVAL SHE DID NOT WANT ME TO THE PATIENTS NURSE ANYMORE. AFTER ABOUT 20 MINUTES I WENT BACK INTO THE ROOM TO REASSESSES THE MEDICATION AND TALK WITH MY PATIENT AND DEEPTHI. FREDDIE TOLD ME TO LEAVE THE ROOM, SO I TOLD HER I WOULD NEED TO TALK WITH MY PATIENT, SHE TOLD ME "NOT RIGHT NOW" I SPOKE WITH MY PATIENT, ASKED HIM IF HIS PAIN WAS OKAY AND IF HE WAS OKAY WITH ME BEING HIS NURSE, AND TOLD HIM THAT IF HE WASNT I COULD REASSIGN HIM A NURSE FOR THE REST OF THE SHIFT. THE PATIENT STATED HE DID NOT WANT A NEW NURSE AND THAT HE WAS OKAY WITH ME CONTINUING TO PROVIDE HIM CARE. WHEN I LEFT THE ROOM DEEPTHI WAS AT THE NURSING STATION, AND TOLD ME THAT IT WAS NOT OKAY FOR ME TO CONTINUE TO BE IN THE ROOM AFTER SHE TOLD ME TO LEAVE "MULTIPULE TIMES"
[2019-01-15 05:29] LABS: PLATELET COUNT, AUTOMATED 345 K/uL (150-450)
--- NOTE | 2019-01-15 08:31 | Hospitalist Progress Note ---
Subjective Progress Notes Subjective This patient was admitted for a gangrenous foot. He had no acute issues overnight. Patient Complains of: Cardiovascular: No: Chest Pain Respiratory: No: Shortness of Breath Physical Exam Vital Signs Date Time Temp Pulse Resp B/P (MAP) Pulse Ox O2 Delivery O2 Flow Rate FiO2 01/15/19 07:00 99.2 81 12 97 Oxy Mask 2.5 01/14/19 23:55 154/71 (98) Intake and Output 01/15/19 07:03 Intake Total 1040 ml Output Total 1850 ml Balance -810 ml Intake Oral 780 ml IV Total 260 ml Output Urine Total 1850 ml # Bowel Movements 2 Cardiovascular: Regular Rate and Rhythm Respiratory: Clear to Auscultation Extremities: Edema Result Diagram: 01/15/1951401/15/19514 Assessment and Plan Problems: (1) Gangrene of right foot Status: Acute Assessment & Plan: He presented with gangrene of the right foot. He was on empiric treatment with Primaxin and vancomycin. Blood cultures have grown Group B streptococcus and MRSA. Repeat cultures are negative. He is afebrile and WBC in normal range. An echocardiogram to evaluate the heart valves was negative for endocarditis. Dr. Sarkar (Surgery) performed amputation 01/07 and revision to BKA 01/09. Primaxin stopped on 01/12. He will need to remain on vancomycin for 10-14 days from the negative cultures. PICC line placed on 01/12. (2) Sepsis Status: Acute Assessment & Plan: Resolved. Due to RLE gangrene. He did have hypothermia, an elevated lactate, and elevated WBC on admission. He received IV fluid resuscitation and antibiotics as noted above. (3) ANEMIA, UNSPECIFIED Status: Acute Assessment & Plan: Due to acute illness and blood loss with surgeries. He did receive 2 units of red cells on 01/10. (4) DKA (diabetic ketoacidoses) Status: Resolved Assessment & Plan: Chronically on metformin. He presented with hyperglycemia and elevated anion gap (probable ketosis related to acute infection/starvation). He was treated with an insulin drip and fluid resuscitation. He is now on Lantus and sliding scale level #2. He has been switched back to metformin 500mg BID. (5) Hypothermia Status: Resolved Assessment & Plan: Resolved with active rewarming. (6) Hypokalemia Status: Resolved Assessment & Plan: Resolved. Watch labs. (7) Shoulder pain Status: Chronic Assessment & Plan: He appears to have some significant disability with the shoulder. It sounds like much of this may be chronic, but exacerbated by the acute illness. Will check x-rays. May need orthopedic evaluation/specific PT for it as well. (8) Hypervolemia Assessment & Plan: His weight is increased since admission and he is edematous. We have increased the Lasix today. Exam Sepsis Risk: No Definite Risk Problem Qualifiers (1) DKA (diabetic ketoacidoses): Diabetes mellitus type: type 2 Diabetes mellitus complication detail: without coma Qualified Codes: E11.10 - Type 2 diabetes mellitus with ketoacidosis without coma (2) Hypothermia: Encounter type: initial encounter Qualified Codes: T68.XXXA - Hypothermia, initial encounter AMANDA HERNANDEZ DO Jan 15, 2019 08:31
[2019-01-15 08:42] VITALS: BP 145/80
[2019-01-15] MEDS: metFORMIN HCL XR 500 MG TABCR PO SCH ×2 (08:52→21:20)
[2019-01-15] MEDS: SPIRONOLACTONE 25 MG TAB PO SCH (08:52)
[2019-01-15] MEDS: PANTOPRAZOLE SOD 40 MG IV VIAL IVP SCH (08:52)
[2019-01-15] MEDS: FUROSEMIDE 40 MG/4 ML VIAL IVP SCH ×2 (08:53→14:55)
[2019-01-15] MEDS: POLYETHYLENE GLYCOL 17 GM PKT PO SCH ×2 (08:53→21:00)
[2019-01-15] MEDS: DOCUSATE SODIUM 100 MG CAP PO SCH ×2 (08:53→21:20)
[2019-01-15] MEDS: ENOXAPARIN 40 MG/0.4ML SYR SC SCH (08:53)
[2019-01-15] MEDS: INSULIN HUM LISPRO 100 UN/ML 3 ML VIAL SUBQ PRN ×3 (12:31→21:31)
--- NOTE | 2019-01-15 14:13 | NUR ---
ECF Referral - Contacted by Kimani Molina RN that patient has not been accepted into acute rehab programs. PASRR negative, have attempted to meet with patient and several times today, is out of room. Patient does not appear medically ready for skilled rehab/nursing. Will plan on meeting with patient and in AM to discuss role of SNF and obtain signatures on ABN. Will plan on placing patient in private room to possibly accommodate 's needs.
[2019-01-15 14:44] VITALS: BP 158/92
--- NOTE | 2019-01-15 15:00 | NUR ---
Physical Therapy Impression PT/OT co-treat for pt safety, with time split for billing purposes. PT/OT assisted nursing staff with bed mobility for rolling side to side and transfer to new low air loss pressure relief mattress. Pt completed rolling side to side with 2 person assist and improved use of UE's to help with this activity. Pt also was able to maintain R) LE slightly abducted in sidelying to assist with pericare completed by nursing prior to bed change. After repositioning, pt tolerated ther ex to B) LE's with increased active participation for L) LE and increased reps as well. Physical Therapy Goals 1: Pt to complete bed mobility with Daniela 2: Pt to complete transfers with CGA and appropriate AD 3: Pt to ambulate 15' with CGA and appropriate AD Patient's Goals
--- NOTE | 2019-01-15 15:11 | General Surgery Progress Note ---
Subjective Progress Notes Subjective no acute events Physical Exam Vital Signs Date Time Temp Pulse Resp B/P (MAP) Pulse Ox O2 Delivery O2 Flow Rate FiO2 01/15/19 14:44 98.8 94 16 158/92 (114) 96 Nasal Cannula 1.0 Intake and Output 01/15/19 07:03 Intake Total 1040 ml Output Total 1850 ml Balance -810 ml Intake Oral 780 ml IV Total 260 ml Output Urine Total 1850 ml # Bowel Movements 2 General Appearance: No Acute Distress Cardiovascular: Other (reg rate) Extremities: Other (right stump healthy, inc c/d/i. small wounds left lower ext. dark under left great toenail. ) Result Diagram: 01/15/1951401/15/19514 Assessment and Plan Problems: (1) Gangrene of right foot Status: Acute Assessment & Plan: 53 yo male with extensive gangrene right foot who will require right below the knee amputation, likely an open approach. 01/06/19: i discussed condition at length with pt and . they would like to proceed with amputation. npo. iv abx. guillotine amp at ankle, then formal bka in a few days. 01/07/19: cont abx. diabetic diet. wound care. lovenox. formal bka in a few days. 01/08/19: improving. cont abx. diabetic diet. wound care. blood sugar control. formal bka, poss tomorrow. 01/09/19: cont abx, blood sugar control. bka on right today. 01/10/19: POD#1 formal Right BKA. Cont immobilizer, antbx. Plan dressing change early Saturday am with PT. Agree with transfusion. Discussed with Med team. 01/11/19: POD#2 right BKA. Cultures and path noted. Cont care plan as above. Cont to mobilize out of bed with PT. is interested in Rehab here in [place] rather than [place]. 01/12/19 POD#3 Right BKA, dressing changed with PT this am. Wound looks really good, cont knee immobilizer. Would favor removal of central line/both peripheral hep locks and place PICC.> 01/13/19: improving. diabetic diet. abx per med team. wound care. PT. 01/15/19: stump healing well - cont wound care. wound care left lower ext. PT. Exam Sepsis Risk: No Definite Risk ESTRELLITA FIGUEROA Jan 15, 2019 15:11
--- NOTE | 2019-01-15 15:42 | NUR ---
Occupational Therapy Impression AROM/AAROM/PROM to bilateral UEs. Max-Total Ax3 for pastora-care rolling side to side supine in bed. Assist x4 for lateral slide transfer from hospital bed to alternating pressure bed. Recommend acute rehab. Occupational Therapy Goals 1) Pt will be Min A UB/LB dressing. 2) Pt will be Min A toilet task. Patient's Goal
[2019-01-16] VITALS (9 sets, daily range): BP systolic 150–160; BP diastolic 78–84
[2019-01-16] MEDS: diphenhydrAMINE 25 MG CAP PO PRN ×2 (04:19→18:09)
[2019-01-16 05:54] LABS: PLATELET COUNT, AUTOMATED 322 K/uL (150-450)
--- NOTE | 2019-01-16 07:54 | NUR ---
ECF Referral - Met with patient and his to discuss rehab philosophy and role of ECF nurses to carryover skills gained with rehab services. Discussed differences in MD visits. Explained private vs semiprivate room situation. stated she would always be by his side, but will manage whatever the situation is. Appears very motivated. ABN signed. Patient is not medically ready for transfer at this time. Once stable and is cleared medically, can be admitted for rehab. PASRR negative.
[2019-01-16] MEDS: INSULIN HUM LISPRO 100 UN/ML 3 ML VIAL SUBQ PRN ×4 (08:20→21:28)
[2019-01-16] MEDS: APAP/HYDROCODONE 325/7.5 TAB PO PRN ×4 (08:20→21:34)
[2019-01-16] MEDS ORDERED: POLYETHYLENE GLYCOL 17 GM PKT PO PRN (08:50)
[2019-01-16] MEDS ORDERED: PANTOPRAZOLE SOD 40 MG TABEC PO SCH (09:00)
[2019-01-16] MEDS: ENOXAPARIN 40 MG/0.4ML SYR SC SCH (09:04)
[2019-01-16] MEDS: metFORMIN HCL XR 500 MG TABCR PO SCH ×2 (09:04→20:26)
[2019-01-16] MEDS: FUROSEMIDE 40 MG/4 ML VIAL IVP SCH ×2 (09:04→13:56)
[2019-01-16] MEDS: DOCUSATE SODIUM 100 MG CAP PO SCH ×2 (09:04→20:26)
[2019-01-16] MEDS: SPIRONOLACTONE 25 MG TAB PO SCH (09:04)
--- NOTE | 2019-01-16 10:56 | Hospitalist Progress Note ---
Subjective Progress Notes Subjective He was admitted for a gangrenous foot. He had no acute issues overnight. Patient Complains of: Cardiovascular: No: Chest Pain Respiratory: No: Shortness of Breath Physical Exam Vital Signs Date Time Temp Pulse Resp B/P (MAP) Pulse Ox O2 Delivery O2 Flow Rate FiO2 01/16/19 09:56 98.9 80 16 150/78 01/16/19 08:05 99 Nasal Cannula 3.5 Intake and Output 01/16/19 01:03 Intake Total 2360 ml Output Total 4550 ml Balance -2190 ml Intake Oral 2080 ml IV Total 280 ml Output Urine Total 4550 ml # Bowel Movements 2 General Appearance: Alert, Awake, No Acute Distress, Afebrile Neuro: No Gross deficits Cardiovascular: Regular Rate and Rhythm Respiratory: No Respiratory Distress, Clear to Auscultation Extremities: Edema (edema noted to body 3+pitting) Psych: Appropriate Mood & Affect Result Diagram: 01/16/1952101/16/19521 Assessment and Plan Problems: (1) Gangrene of right foot Status: Acute Assessment & Plan: He presented with gangrene of the right foot. He was on empiric treatment with Primaxin and vancomycin. Blood cultures have grown Group B streptococcus and MRSA. Repeat cultures are negative. He is afebrile and WBC in normal range. An echocardiogram to evaluate the heart valves was negative for endocarditis. Dr. Sarkar (Surgery) performed amputation 01/07 and revision to BKA 01/09. Primaxin stopped on 01/12. He will need to remain on vancomycin for 10-14 days from the negative cultures. PICC line placed on 01/12. (2) Sepsis Status: Acute Assessment & Plan: Resolved. Due to RLE gangrene. He did have hypothermia, an elevated lactate, and elevated WBC on admission. He received IV fluid resuscitation and antibiotics as noted above. (3) ANEMIA, UNSPECIFIED Status: Acute Assessment & Plan: Due to acute illness and blood loss with surgeries. He did receive 2 units of red cells on 01/10. He will receive 2 units of red cells today also. (4) DKA (diabetic ketoacidoses) Status: Resolved Assessment & Plan: Chronically on metformin. He presented with hyperglycemia and elevated anion gap (probable ketosis related to acute infection/starvation). He was treated with an insulin drip and fluid resuscitation. He is now on Lantus and sliding scale level #2. He has been switched back to metformin 500mg BID. (5) Hypothermia Status: Resolved Assessment & Plan: Resolved with active rewarming. (6) Hypokalemia Status: Resolved Assessment & Plan: Resolved. Watch labs. (7) Shoulder pain Status: Chronic Assessment & Plan: He appears to have some significant disability with the shoulder. It sounds like much of this may be chronic, but exacerbated by the acute illness. X-ray negative for acute process. May need orthopedic evaluation/specific PT for it as well. (8) Hypervolemia Assessment & Plan: His weight is increased since admission and he is edematous. We have increased the Lasix. Exam Sepsis Risk: No Definite Risk Problem Qualifiers (1) DKA (diabetic ketoacidoses): Diabetes mellitus type: type 2 Diabetes mellitus complication detail: without coma Qualified Codes: E11.10 - Type 2 diabetes mellitus with ketoacidosis without coma (2) Hypothermia: Encounter type: initial encounter Qualified Codes: T68.XXXA - Hypothermia, initial encounter RIKA LEIVA Jan 16, 2019 10:56
[2019-01-16] MEDS: VANCOMYCIN(*) 1 GM VIAL 1 GM in NS(*) 0.9% 250 ML BAG 250 ML IVPB SCH (12:28)
--- NOTE | 2019-01-16 15:26 | NUR ---
Physical Therapy Impression PT/OT co treat with time split for billing purposes. Pt with critically low H&H today, receiving transfusion of PRBC during time of therapy session, therefore further mobility intervention was held at this time. PT instructed pt in ankle pumps, hip abduction, heel slides and SAQ on L) LE in order to increase LE strength for functional tasks. Pt requires maxA x3 for rolling in bed in order to complete pericare and linen change. Rec acute rehab Physical Therapy Goals 1: Pt to complete bed mobility with Daniela 2: Pt to complete transfers with CGA and appropriate AD 3: Pt to ambulate 15' with CGA and appropriate AD Patient's Goals
[2019-01-16] MEDS: HYDROmorphone HCL 2 MG/ML SDV IVP PRN (16:12)
--- NOTE | 2019-01-16 16:12 | NUR ---
Occupational Therapy Impression Pt currently having blood transfused. Gentle PROM/AAROM and soft tissue massage to R) UE. 2# weight incorporated into ther ex for left UE. Assist x2-3 for linen change and pastora-care supine in bed. Continue POC. Occupational Therapy Goals 1) Pt will be Min A UB/LB dressing. 2) Pt will be Min A toilet task. Patient's Goal
[2019-01-16] MEDS: ALTEPLASE RECOMB 2 MG VIAL IVP PRN (16:15)
[2019-01-16] MEDS: FERROUS SULFATE 325 MG TAB PO SCH (17:19)
[2019-01-16] MEDS: ASCORBIC ACID 500 MG TAB PO SCH (17:20)
[2019-01-17] MEDS: diphenhydrAMINE 25 MG CAP PO PRN ×3 (00:31→17:17)
[2019-01-17 03:34] VITALS: BP 140/80
[2019-01-17] MEDS: APAP/HYDROCODONE 325/7.5 TAB PO PRN ×4 (03:58→20:35)
[2019-01-17] MEDS: HYDROmorphone HCL 2 MG/ML SDV IVP PRN (06:01)
[2019-01-17] MEDS: PANTOPRAZOLE SOD 40 MG TABEC PO SCH (06:19)
[2019-01-17 07:25] LABS: PLATELET COUNT, AUTOMATED 354 K/uL (150-450)
[2019-01-17 07:36] VITALS: BP 166/90
[2019-01-17] MEDS: INSULIN HUM LISPRO 100 UN/ML 3 ML VIAL SUBQ PRN ×4 (07:47→21:53)
[2019-01-17] MEDS: MAG HYD/AL HYD/SIMETH 30ML UDC PO PRN (08:38)
[2019-01-17] MEDS: DOCUSATE SODIUM 100 MG CAP PO SCH ×2 (08:39→20:35)
[2019-01-17] MEDS: SPIRONOLACTONE 25 MG TAB PO SCH (08:39)
[2019-01-17] MEDS: FERROUS SULFATE 325 MG TAB PO SCH ×2 (08:39→17:10)
[2019-01-17] MEDS: metFORMIN HCL XR 500 MG TABCR PO SCH ×2 (08:39→21:38)
[2019-01-17] MEDS: FUROSEMIDE 40 MG/4 ML VIAL IVP SCH (08:40)
[2019-01-17] MEDS: ASCORBIC ACID 500 MG TAB PO SCH ×2 (08:40→17:11)
[2019-01-17] MEDS: ENOXAPARIN 40 MG/0.4ML SYR SC SCH (08:40)
--- NOTE | 2019-01-17 09:44 | Hospitalist Progress Note ---
Subjective Progress Notes Subjective He reports improvement in edema. He has been feeling "weak" today. Right shoulder pain/immobility is relatively unchanged. Physical Exam Vital Signs Date Time Temp Pulse Resp B/P (MAP) Pulse Ox O2 Delivery O2 Flow Rate FiO2 01/17/19 07:36 99.0 81 16 166/90 (115) 97 Nasal Cannula 4.0 Intake and Output 01/17/19 07:03 Intake Total 2880 ml Output Total 4550 ml Balance -1670 ml Intake Oral 1880 ml IV Total 500 ml Blood Product 500 ml Output Urine Total 4550 ml # Bowel Movements 1 General Appearance: Alert, Awake Cardiovascular: Regular Rate and Rhythm Respiratory: Clear to Auscultation Extremities: Warm, Perfused, Other (RLE dressed/no drainage) Result Diagram: 01/17/1963101/17/19 06 Assessment and Plan Problems: (1) Gangrene of right foot Status: Acute Assessment & Plan: He presented with gangrene of the right foot. He was on em piric treatment with Primaxin and vancomycin. Blood cultures have grown Group B streptococcus and MRSA. Repeat cultures are negative. He is afebrile and WBC in normal range. An echocardiogram to evaluate the heart valves was negative for endocarditis. Dr. Sarkar (Surgery) performed amputation 01/07 and revision to BKA 01/09. Primaxin stopped on 01/12. He will need to remain on vancomycin for 10-14 days from the negative cultures. PICC line placed on 01/12. He will need antibiotics through 01/18 (or 01/22). (2) Sepsis Status: Acute Assessment & Plan: Resolved. Due to RLE gangrene. He did have hypothermia, an elevated lactate, and elevated WBC on admission. He received IV fluid resuscitation and antibiotics as noted above. (3) ANEMIA, UNSPECIFIED Status: Acute Assessment & Plan: Due to acute illness and blood loss with surgeries. He did receive 2 units of red cells on 01/10 and again 01/16. Watch labs. (4) DKA (diabetic ketoacidoses) Status: Resolved Assessment & Plan: Chronically on metformin. He presented with hyperglycemia and elevated anion gap (probable ketosis related to acute infection/starvation). He was treated with an insulin drip and fluid resuscitation. He is now on Lantus and sliding scale level #2. He has been switched back to metformin 500mg BID. (5) Hypothermia Status: Resolved Assessment & Plan: Resolved with active rewarming. (6) Hypokalemia Status: Resolved Assessment & Plan: Resolved. Watch labs. (7) Shoulder pain Status: Chronic Assessment & Plan: He appears to have some significant disability with the shoulder. It sounds like much of this may be chronic, but exacerbated by the acute illness. X-ray negative for acute process. May need orthopedic evaluation/specific PT for it as well. (8) Hypervolemia Assessment & Plan: Improved. His weight was increased since admission and he was edematous. He has responded to the diuresis. Exam Sepsis Risk: No Definite Risk Problem Qualifiers (1) DKA (diabetic ketoacidoses): Diabetes mellitus type: type 2 Diabetes mellitus complication detail: without coma Qualified Codes: E11.10 - Type 2 diabetes mellitus with ketoacidosis without coma (2) Hypothermia: Encounter type: initial encounter Qualified Codes: T68.XXXA - Hypothermia, initial encounter SUSAN LOPEZ MD Jan 17, 2019 09:44
--- NOTE | 2019-01-17 10:00 | NUR ---
Physical Therapy Impression PT instruction for LE ther-ex while in bed-- 2x10 SAQ on L) LE with 5# weight in place with cues for hamstring set at end of ROM. Instruction for quad set on R) LE with education provided on importance of avoiding flexion contracture. R) side hip abduction and extension completed in L) side lying, 2x10 reps. Pt requires max-total A x3 for rolling in bed. Overall good tolerance, continue with POC> Physical Therapy Goals 1: Pt to complete bed mobility with Daniela 2: Pt to complete transfers with CGA and appropriate AD 3: Pt to ambulate 15' with CGA and appropriate AD Patient's Goals
[2019-01-17 11:02] VITALS: BP 165/78
[2019-01-17] MEDS: VANCOMYCIN(*) 1 GM VIAL 1 GM in NS(*) 0.9% 250 ML BAG 250 ML IVPB SCH ×3 (12:44→23:33)
[2019-01-17 14:02] VITALS: BP 158/82
[2019-01-17] MEDS: FUROSEMIDE 20 MG/2 ML VIAL IVP SCH (14:05)
[2019-01-17] MEDS: ALTEPLASE RECOMB 2 MG VIAL IVP PRN ×2 (14:09→21:40)
[2019-01-17 18:56] VITALS: BP 134/88
[2019-01-18] MEDS: APAP/HYDROCODONE 325/7.5 TAB PO PRN ×4 (01:53→17:29)
[2019-01-18 02:03] VITALS: BP 144/96
[2019-01-18 05:50] LABS: PLATELET COUNT, AUTOMATED 333 K/uL (150-450)
[2019-01-18] MEDS: PANTOPRAZOLE SOD 40 MG TABEC PO SCH (06:03)
--- NOTE | 2019-01-18 06:10 | NUR ---
Pt had severe sleep apnea and desat into mid 50-60% O2 at times. Pt was awoken, O2 rate temporarily increased, and head of bed raised to improve respiratory status. Pt sats improved quickly after these interventions. Possibility of using BiPAP or CPAP was discussed with patient and he refused them both.
[2019-01-18] MEDS: FERROUS SULFATE 325 MG TAB PO SCH ×2 (08:51→17:28)
[2019-01-18] MEDS: ASCORBIC ACID 500 MG TAB PO SCH ×2 (08:51→17:29)
[2019-01-18] MEDS: metFORMIN HCL XR 500 MG TABCR PO SCH ×2 (08:52→21:08)
[2019-01-18] MEDS: SPIRONOLACTONE 25 MG TAB PO SCH (08:52)
[2019-01-18] MEDS: DOCUSATE SODIUM 100 MG CAP PO SCH ×2 (08:52→21:08)
[2019-01-18] MEDS: FUROSEMIDE 20 MG/2 ML VIAL IVP SCH ×2 (08:52→14:02)
[2019-01-18] MEDS: ENOXAPARIN 40 MG/0.4ML SYR SC SCH (08:52)
[2019-01-18] MEDS: INSULIN HUM LISPRO 100 UN/ML 3 ML VIAL SUBQ PRN ×3 (08:53→21:20)
--- NOTE | 2019-01-18 10:24 | Hospitalist Progress Note ---
Subjective Progress Notes Subjective No new issues overnight. The patient continues to desaturate at times. Nursing reports MS changes when he gets Dilaudid. Physical Exam Vital Signs Date Time Temp Pulse Resp B/P (MAP) Pulse Ox O2 Delivery O2 Flow Rate FiO2 01/18/19 02:03 98.1 86 12 144/96 (112) 94 Oxy Mask 4.0 94 Intake and Output 01/18/19 07:03 Intake Total 1890 ml Output Total 3650 ml Balance -1760 ml Intake Oral 1360 ml IV Total 530 ml Output Urine Total 3650 ml # Bowel Movements 4 General Appearance: Alert, Awake, No Acute Distress, Afebrile Eyes: PERRLA Cardiovascular: Regular Rate and Rhythm, Other (1+ edema throughout. Scrotum is markedly swollen.) Respiratory: Clear to Auscultation GI: Soft and Non-Tender : Other (Marked swelling of scrotum.) Extremities: Warm, Perfused Integumentary: Other (Ulcers R lower leg appear to be healing. Buttocks not examined.) Psych: Alert & Oriented X3 Result Diagram: 01/18/1951101/18/19511 Assessment and Plan Problems: (1) Gangrene of right foot Status: Acute Assessment & Plan: He presented with gangrene of the right foot. He was on empiric treatment with Primaxin and vancomycin. Blood cultures have grown Group B streptococcus and MRSA. Repeat cultures are negative. He is afebrile and WBC in normal range. An echocardiogram to evaluate the heart valves was negative for endocarditis. Dr. Sarkar (Surgery) performed amputation 01/07 and revision to BKA 01/09. Primaxin stopped on 01/12. He will need to remain on vancomycin for 10-14 days from the negative cultures. PICC line placed on 01/12. He will need antibiotics through 01/18 (or 01/22). (2) Sepsis Status: Acute Assessment & Plan: Resolved. Due to RLE gangrene. He did have hypothermia, an elevated lactate, and elevated WBC on admission. He received IV fluid resuscitation and antibiotics as noted above. (3) ANEMIA, UNSPECIFIED Status: Acute Assessment & Plan: Due to acute illness and blood loss with surgeries. He did receive 2 units of red cells on 01/10 and again 01/16. Watch labs. (4) DKA (diabetic ketoacidoses) Status: Resolved Assessment & Plan: Chronically on metformin. He presented with hyperglycemia and elevated anion gap (probable ketosis related to acute infection/starvation). He was treated with an insulin drip and fluid resuscitation. He was on Lantus and sliding scale level #2. He has been switched back to metformin 500mg BID plus SSI and blood sugars are reasonably well controlled.. (5) Hypothermia Status: Resolved Assessment & Plan: Resolved with active rewarming. (6) Hypokalemia Status: Resolved Assessment & Plan: Resolved. Watch labs. (7) Shoulder pain Status: Chronic Assessment & Plan: He appears to have some significant disability with the shoulder. It sounds like much of this may be chronic, but exacerbated by the acute illness. X-ray negative for acute process. May need orthopedic evaluation/specific PT for it as well. (8) Hypervolemia Assessment & Plan: Improved. His weight was increased since admission and he was edematous. He has responded to the diuresis. Time Spent on Plan of Care: < 30 min Exam Sepsis Risk: No Definite Risk Problem Qualifiers (1) DKA (diabetic ketoacidoses): Diabetes mellitus type: type 2 Diabetes mellitus complication detail: without coma Qualified Codes: E11.10 - Type 2 diabetes mellitus with ketoacidosis without coma (2) Hypothermia: Encounter type: initial encounter Qualified Codes: T68.XXXA - Hypothermia, initial encounter ZACK LOPEZ MD Jan 18, 2019 10:24
[2019-01-18] MEDS: VANCOMYCIN(*) 1 GM VIAL 1 GM in NS(*) 0.9% 250 ML BAG 250 ML IVPB SCH ×2 (12:07→23:36)
[2019-01-18] MEDS: diphenhydrAMINE 25 MG CAP PO PRN ×2 (13:41→20:02)
[2019-01-18] MEDS: ALTEPLASE RECOMB 2 MG VIAL IVP PRN (13:41)
[2019-01-18 17:20] VITALS: BP 118/84
[2019-01-18 19:02] VITALS: BP 210/110
[2019-01-18] MEDS: HYDROmorphone HCL 2 MG/ML SDV IVP PRN (23:21)
[2019-01-18 23:38] VITALS: BP 194/97
[2019-01-19] MEDS: APAP/HYDROCODONE 325/7.5 TAB PO PRN ×4 (02:26→17:22)
[2019-01-19] MEDS ORDERED: WATER STERILE(*) 10 ML VIAL 10 ML ONE (02:27)
[2019-01-19] MEDS: ALTEPLASE RECOMB 2 MG VIAL IVP PRN ×2 (02:36→03:42)
[2019-01-19 03:38] VITALS: BP 170/89
[2019-01-19 05:25] LABS: PLATELET COUNT, AUTOMATED 324 K/uL (150-450)
[2019-01-19] MEDS: PANTOPRAZOLE SOD 40 MG TABEC PO SCH (06:13)
[2019-01-19] MEDS: diphenhydrAMINE 25 MG CAP PO PRN ×3 (06:19→20:01)
[2019-01-19 08:13] VITALS: BP 184/103
[2019-01-19] MEDS: FERROUS SULFATE 325 MG TAB PO SCH ×2 (08:15→17:22)
[2019-01-19] MEDS: SPIRONOLACTONE 25 MG TAB PO SCH (08:15)
[2019-01-19] MEDS: metFORMIN HCL XR 500 MG TABCR PO SCH ×2 (08:15→21:57)
[2019-01-19] MEDS: ASCORBIC ACID 500 MG TAB PO SCH ×2 (08:15→17:24)
[2019-01-19] MEDS: DOCUSATE SODIUM 100 MG CAP PO SCH ×2 (08:15→21:57)
--- NOTE | 2019-01-19 08:15 | General Surgery Progress Note ---
Subjective Progress Notes Subjective no acute events Physical Exam Vital Signs Date Time Temp Pulse Resp B/P (MAP) Pulse Ox O2 Delivery O2 Flow Rate FiO2 01/19/19 03:38 98.8 85 16 170/89 (116) Oxy Mask 4.0 01/19/19 00:40 97 Intake and Output 01/19/19 07:03 Intake Total 240 ml Output Total 3650 ml Balance -3410 ml Intake Oral 240 ml Output Urine Total 3650 ml # Bowel Movements 2 General Appearance: No Acute Distress Cardiovascular: Other (reg rate) Extremities: Other (wounds on left stable or improving. right stump inc c/d/i. no infection. swelling much improved bilat.) Result Diagram: 01/19/19 0501/19/19 05 Assessment and Plan Problems: (1) Gangrene of right foot Status: Acute Assessment & Plan: 53 yo male with extensive gangrene right foot who will require right below the knee amputation, likely an open approach. 01/06/19: i discussed condition at length with pt and . they would like to proceed with amputation. npo. iv abx. guillotine amp at ankle, then formal bka in a few days. 01/07/19: cont abx. diabetic diet. wound care. lovenox. formal bka in a few days. 01/08/19: improving. cont abx. diabetic diet. wound care. blood sugar control. formal bka, poss tomorrow. 01/09/19: cont abx, blood sugar control. bka on right today. 01/10/19: POD#1 formal Right BKA. Cont immobilizer, antbx. Plan dressing change early Saturday am with PT. Agree with transfusion. Discussed with Med team. 01/11/19: POD#2 right BKA. Cultures and path noted. Cont care plan as above. Cont to mobilize out of bed with PT. is interested in Rehab here in [place] rather than [place]. 01/12/19 POD#3 Right BKA, dressing changed with PT this am. Wound looks really good, cont knee immobilizer. Would favor removal of central line/both peripheral hep locks and place PICC.> 01/13/19: improving. diabetic diet. abx per med team. wound care. PT. 8/8/19: stump healing well - cont wound care. wound care left lower ext. PT. 01/19/19: doing well. PT. will consult prosthetics. Exam Sepsis Risk: No Definite Risk ESTRELLITA FIGUEROA Jan 19, 2019 08:15
[2019-01-19] MEDS: ENOXAPARIN 40 MG/0.4ML SYR SC SCH (08:16)
[2019-01-19] MEDS: INSULIN HUM LISPRO 100 UN/ML 3 ML VIAL SUBQ PRN ×3 (08:17→17:21)
[2019-01-19] MEDS: FUROSEMIDE 20 MG/2 ML VIAL IVP SCH ×2 (08:21→13:48)
--- NOTE | 2019-01-19 09:42 | NUR ---
Physical Therapy Impression PT/OT co treat for patient safety with time split for billing purposes. Pt motivated to participate today. MaxAx1 provided for supine to sit, with pt demonstrating improved ability to move LEs and use L) UE to assist with mobility. Pt required extensive explanation and demonstration of EZ lift, once this was better understood, pt demonstrated improved ability to participate. MaxA x 2 for STS transfer with Ez lift, with pt able to achieve full knee extension on L) LE once up in lift. Pt completed 2x STS with lift with fair tolerance overall. Pt requested to sit at EOB at end of session. Pt left sitting at EOB with [employer] SUPERVIS[employer] present to assist the patient back to be. Rec that pt is transferred with use of christo lift to/from chair for meals to allow eating in seated position and further improve strength. Rec aggressive offloading of sacrum at all other times secondary to sacral pressure injury. Physical Therapy Goals 1: Pt to complete bed mobility with Daniela 2: Pt to complete transfers with CGA and appropriate AD 3: Pt to ambulate 15' with CGA and appropriate AD Patient's Goals
[2019-01-19 11:12] VITALS: BP 193/105
--- NOTE | 2019-01-19 11:55 | NUR ---
Occupational Therapy Impression Co-treat with PT. Pt. requiring multiple verbal cues to perform sit to stand transfers with use of EZ lift. Pt. performed 2 sit to stand transfers, utilizing LUE to pull/push to standing position. Continue with POC. Pt. plans to d/c to [facility] for continued rehab. Occupational Therapy Goals 1) Pt will be Min A UB/LB dressing. 2) Pt will be Min A toilet task. Patient's Goal
[2019-01-19] MEDS: VANCOMYCIN(*) 1 GM VIAL 1 GM in NS(*) 0.9% 250 ML BAG 250 ML IVPB SCH (12:23)
--- NOTE | 2019-01-19 13:05 | NUR ---
ST IMPRESSION Pt continues to exhibit improved attention span, auditory processing, and speech intelligibility (return to 100% in conversation). Completed re-administration of the MoCA (version 7.1) to obtain objective data re: suspected improvement in cognitive linguistic status. Pt achieved a score of 23/30 in comparison to prior score of 9/30 on version 7.2 one week prior. Significant improvements were observed across domains, including attention, memory, auditory processing, processing speed, problem solving, and exec fxn skills. Despite substantial gains, deficits persist in short-term recall, auditory processing, speed of processing, and problem solving. Goals addressing motor speech, attention, and orientation have been met. POC will be updated with discontinuation of prior goals to reflect progress. Pt plans to d/c to short-term rehab ([facility]) at d/c.
--- NOTE | 2019-01-19 14:27 | Hospitalist Progress Note ---
Subjective Progress Notes Subjective ILIANA overnight, continues to slowly improve. Working with PT/OT, we are diuresing fluid off. Patient Complains of: Cardiovascular: No: Chest Pain, Palpitations Respiratory: No: Cough Gastrointestinal: No Nausea, No Vomiting Physical Exam Vital Signs Date Time Temp Pulse Resp B/P (MAP) Pulse Ox O2 Delivery O2 Flow Rate FiO2 01/19/19 11:12 98.1 83 18 193/105 (134) Nasal Cannula 4.0 01/19/19 10:48 96 Intake and Output 01/19/19 07:03 Intake Total 240 ml Output Total 3650 ml Balance -3410 ml Intake Oral 240 ml Output Urine Total 3650 ml # Bowel Movements 2 General Appearance: Alert, Awake, No Acute Distress, Afebrile Neuro: No Gross deficits Cardiovascular: Normal Rhythm & Peripheral Pulses Respiratory: Clear to Auscultation GI: Soft and Non-Tender : Other (+ vee, scrotal edema) Musculoskeletal: No Weakness/Pain Extremities: Soft and Non Tender, Warm, Pulses, Perfused, Other (R BKA) Result Diagram: 01/19/1951001/19/19510 Assessment and Plan Problems: (1) Gangrene of right foot Status: Acute Assessment & Plan: He presented with gangrene of the right foot. He was on empiric treatment with Primaxin and vancomycin. Blood cultures have grown Group B streptococcus and MRSA. Repeat cultures are negative. He is afebrile and WBC in normal range. An echocardiogram to evaluate the heart valves was negative for endocarditis. Dr. Sarkar (Surgery) performed amputation 01/07 and revision to BKA 01/09. Primaxin stopped on 01/12. He will need to remain on vancomycin for 14 days from the negative cultures. PICC line placed on 01/12. He will need antibiotics through 01/22. (2) Sepsis Status: Acute Assessment & Plan: Resolved. Due to RLE gangrene. He did have hypothermia, an elevated lactate, and elevated WBC on admission. He received IV fluid resuscitation and antibiotics as noted above. (3) ANEMIA, UNSPECIFIED Status: Acute Assessment & Plan: Due to acute illness and blood loss with surgeries. He did receive 2 units of red cells on 01/10 and again 01/16. Watch labs. (4) DKA (diabetic ketoacidoses) Status: Resolved Assessment & Plan: Chronically on metformin. He presented with hyperglycemia and elevated anion gap (probable ketosis related to acute infection/starvation). He was treated with an insulin drip and fluid resuscitation. He was on Lantus and sliding scale level #2. He has been switched back to metformin 500mg BID plus SSI and blood sugars are well controlled.. (5) Hypothermia Status: Resolved Assessment & Plan: Resolved with active rewarming. (6) Hypokalemia Status: Resolved Assessment & Plan: Resolved. Watch labs. (7) Shoulder pain Status: Chronic Assessment & Plan: He appears to have some significant disability with the shoulder. It sounds like much of this may be chronic, but exacerbated by the acute illness. X-ray negative for acute process. May need orthopedic evaluation/specific PT for it as well. (8) Hypervolemia Assessment & Plan: Improved. His weight was increased since admission and he was edematous. He has responded to the diuresis. Scrotal edema improving Exam Sepsis Risk: No Definite Risk Problem Qualifiers (1) DKA (diabetic ketoacidoses): Diabetes mellitus type: type 2 Diabetes mellitus complication detail: without coma Qualified Codes: E11.10 - Type 2 diabetes mellitus with ketoacidosis without coma (2) Hypothermia: Encounter type: initial encounter Qualified Codes: T68.XXXA - Hypothermia, initial encounter HUMPHREY FELIX DO Jan 19, 2019 14:27
--- NOTE | 2019-01-19 16:13 | Medical Nutrition Therapy ---
Nutrition Anthropometrics Height (Inches): 65.00 Height (Calculated Centimeters: 165.571132 Weight (Pounds): 272 Weight (Calculated Kilograms): 123.377 BMI: 42 Hasmukh Nutrition Score: Probably Inadequate Hasmukh Nutrition Risk Score: 12 Dietary Referral Nutrition Risk Factors: Nutrition Risk Comment: Physical Findings Physical Appearance: Morbidly Obese 40+ Skin Appearance Skin Appearance: Edema Edema Location Modifier: Left Edema Location: Lower Extremity Type of Edema: Degree of Edema: 2+ Gastrointestinal Symptoms GI Symtoms: Change in Bowel Pattern Tube Present: Bowel Sounds: Hyperactive bowel sounds Recent Bowel Pattern: Stool Characteristics: Nutritional Diagnosis Nutritional Risk Acuity 2: Abcess/Non-Healing Wound, Sepsis Past Medical History: DM2 Nutritional Acuity: 2-Moderate Nutrition Diagnosis: Increased Nutrient Needs Nutrition Etiology: Physiological Causes Nutrition Problem/Etiology/Sym: increased protein requirement for below the knee amputation and sepsis Energy Requirement: 2029 ([employer] [place] Equation (adjusted)) Protein Requirement: 115 (115-140g/day (1-1.4g/kg)) Fluid Requirement: 2030 (1mL/kcal) Diet Type: Diabetic Nutrition Intervention: Cont diet as ordered, Vit/min support Drug: Diuretics Food Dislikes: If ordering fruit cup or bowl, do not include canteloupe or honeydew. Diet Comment To [facility]: DELIVER FAUSTO ON BREAKFAST AND DINNER TRAYS Nutrition Monitoring & Eval Nutrition Goals: Eat 75-100% Meal Nutrition Follow-Up: Good Intake, Refuses Snack Supplement RD Patient Assessment Time: [address] Assessment Type: RD Re-Assessment Patient Nutrition Acuity: 2-Moderate Follow Up Date: Jan 23, 2019 Nutritional Comment: 01/06/19: Pt admit for AMS/sepsis/DKA gangrene foot. Plan is for BKA. Pt currently NPO. Current wt 252 lbs with RLE 2+ pitting and bilateral feet 3+ pitting, and bilateral arm non pitting edema. K+ slightly low. BGs elevated. Neutrophils elevated. Pertinent rx include vancomycin, imipenum insulin. Pt has increased protein requirements r/t sepsis and will need additional protein following BKA procedure. Will continue to monitor.GENE 01/09/19: Pt currently s/p foot amputation and scheduled for BKA today. BGs running high, CRP elevated, neutrophils elevated but trending down. Has RLE 2+, LLE 3+, and bilateral arm 1+ edema. Current meal intake averaging 75%, on ADA diet. Spoke briefly with pt this afternoon. Discussed importance of getting adequate protein for healing after surgery. Discussed foods high in protein. Following surgery will add Fausto to promote wound healing. Will continue to follow.GENE 01/14/19: Follow-up w/ pt to discuss importance of protein for wound healing. Pt agreeable to Fausto. Noted significant edema, significant weight gain from 01/05-01/14/2019 of 24 pounds. Currently receiving diuretics. Eating fairly well, average intake is 72%. Continues to receive Fausto. Will continue to monitor intake, weight, and bowel movements. -GENE 01/19/2019: Pt recovering well from surgery. Pt continues to present with edema on left lower extremity (2+), and both arms (non-pitting). Pt lab values indicate: low chloride (96), high AST (37), low albumin (1.8), low sodium (132), and low h&h ( 9.1 & 27.2). Pt continues to be on diuretic and anticoagulant. PT consuming 100% of meals, but not consuming supplements (ensure clear and fausto). Will continue to monitor intake, weight, and lab. values. - FOUZIA BROWN Jan 19, 2019 10:15
[2019-01-19 19:29] VITALS: BP 172/90
[2019-01-20 00:09] VITALS: BP 179/97
[2019-01-20] MEDS: APAP/HYDROCODONE 325/7.5 TAB PO PRN ×5 (00:12→21:19)
[2019-01-20] MEDS: VANCOMYCIN(*) 1 GM VIAL 1 GM in NS(*) 0.9% 250 ML BAG 250 ML IVPB SCH ×2 (00:14→12:49)
[2019-01-20 03:02] VITALS: BP 154/86
[2019-01-20] MEDS: PROMETHAZINE 25 MG/ML 1 ML AMP IVP PRN (04:07)
[2019-01-20] MEDS: NS(*) 0.9% 500 ML BAG 500 ML IV PRN (04:07)
[2019-01-20] MEDS: PANTOPRAZOLE SOD 40 MG TABEC PO SCH (05:40)
[2019-01-20] MEDS: INSULIN HUM LISPRO 100 UN/ML 3 ML VIAL SUBQ PRN ×3 (08:13→21:17)
[2019-01-20] MEDS: FERROUS SULFATE 325 MG TAB PO SCH ×2 (08:15→17:06)
[2019-01-20] MEDS: ASCORBIC ACID 500 MG TAB PO SCH ×2 (08:15→17:06)
[2019-01-20] MEDS: FUROSEMIDE 20 MG/2 ML VIAL IVP SCH ×2 (08:20→15:32)
[2019-01-20] MEDS: ENOXAPARIN 40 MG/0.4ML SYR SC SCH (08:20)
[2019-01-20] MEDS: metFORMIN HCL XR 500 MG TABCR PO SCH ×2 (08:21→21:13)
[2019-01-20] MEDS: DOCUSATE SODIUM 100 MG CAP PO SCH ×2 (08:21→21:13)
[2019-01-20] MEDS: SPIRONOLACTONE 25 MG TAB PO SCH (08:21)
[2019-01-20] MEDS: HYDROmorphone HCL 2 MG/ML SDV IVP PRN (08:39)
[2019-01-20] MEDS: LIDOCAINE 5% PATCH TP SCH (10:08)
--- NOTE | 2019-01-20 11:19 | NUR ---
ST IMPRESSION Initiated new goals addressing deficits in short-term memory, word finding, and info processing for execution of multi-level commands. Pt cont to demonstrate progress from a cognitive linguistic standpoint, with improved attention, problem solving, and overall initiation. Established external visual aides to support retention of functional info, reviewed helpful word finding techniques, and discussed strategies to support comprehension of auditory info. Pt referred to external visual aides with mod assist for retention of functional facts embedded within tx session. Pt benefits from repeated review of novel information, simplified instructions, and contextualized practice opps for improved auditory comprehension of instructions. Written info left at the bedside. Will cont updated POC.
--- NOTE | 2019-01-20 11:56 | Hospitalist Progress Note ---
Subjective Progress Notes Subjective No acute events overnight. Surgical pain is improving, but he is complaining of right shoulder pain. Patient Complains of: Neurological: No: Confusion, Weakness Cardiovascular: No: Chest Pain, Palpitations Respiratory: No: Congestion, Shortness of Breath Gastrointestinal: No Nausea Physical Exam Vital Signs Date Time Temp Pulse Resp B/P (MAP) Pulse Ox O2 Delivery O2 Flow Rate FiO2 01/20/19 10:56 96 Oxy Mask 3.0 30.0 01/20/19 03:02 98.9 86 18 154/86 (108) Intake and Output 01/20/19 01:03 Intake Total 480 ml Output Total 2550 ml Balance -2070 ml Intake Oral 480 ml Output Urine Total 2550 ml # Bowel Movements 1 General Appearance: Alert, Awake, No Acute Distress Cardiovascular: Regular Rate and Rhythm Respiratory: No Respiratory Distress Psych: Alert & Oriented X3, Appropriate Mood & Affect Result Diagram: 01/19/1951001/19/19510 Assessment and Plan Problems: (1) Gangrene of right foot Status: Acute Assessment & Plan: He presented with gangrene of the right foot. He was on empiric treatment with Primaxin and vancomycin. Blood cultures have grown Group B streptococcus and MRSA. Repeat cultures are negative. He is afebrile and WBC in normal range. An echocardiogram to evaluate the heart valves was negative for endocarditis. Dr. Sarkar (Surgery) performed amputation 01/07 and revision to BKA 01/09. Primaxin stopped on 01/12. He will need to remain on vancomycin for 14 days from the negative cultures. PICC line placed on 01/12. He will need antibiotics through 01/22. (2) Sepsis Status: Acute Assessment & Plan: Resolved. Due to RLE gangrene. He did have hypothermia, an elevated lactate, and elevated WBC on admission. He received IV fluid resuscitation and antibiotics as noted above. (3) ANEMIA, UNSPECIFIED Status: Acute Assessment & Plan: Due to acute illness and blood loss with surgeries. He did receive 2 units of red cells on 01/10 and again 01/16. He has remained stable since last transfusion. Will continue to watch labs. (4) DKA (diabetic ketoacidoses) Status: Resolved Assessment & Plan: Chronically on metformin. He presented with hyperglycemia and elevated anion gap (probable ketosis related to acute infection/starvation). He was treated with an insulin drip and fluid resuscitation. He was on Lantus and sliding scale level #2. He has been switched back to metformin 500mg BID pl us SSI and blood sugars are well controlled.. (5) Status post below knee amputation Assessment & Plan: Dr. Sarkar (Surgery) performed amputation 01/07 and revision to BKA 01/09. PT/OT/ST is working with him, and in the process of obtaining a prosthesis. Likely need for Acute Rehab when stable and prosthesis is obtained. Surgical pain is controlled. (6) Hypothermia Status: Resolved Assessment & Plan: Resolved with active rewarming. (7) Hypokalemia Status: Resolved Assessment & Plan: Resolved. Watch labs. (8) Shoulder pain Status: Chronic Assessment & Plan: He appears to have some significant disability with the shoulder. It sounds like much of this may be chronic, but exacerbated by the acute illness. X-ray negative for acute process. May need orthopedic evaluation/specific PT for it as well. Lidoderm patch placed on right shoulder for localized pain relief. (9) Hypervolemia Assessment & Plan: Improved. His weight was increased since admission and he was edematous. He has responded to the diuresis. Scrotal edema improving. Urination via urinal is still unlikely at this point. As Scrotal edema dec reases, and he becomes more mobile, we will remove Cavazos Cath (Likely on 01/21). Exam Sepsis Risk: No Definite Risk Problem Qualifiers (1) DKA (diabetic ketoacidoses): Diabetes mellitus type: type 2 Diabetes mellitus complication detail: without coma Qualified Codes: E11.10 - Type 2 diabetes mellitus with ketoacidosis without coma (2) Hypothermia: Encounter type: initial encounter Qualified Codes: T68.XXXA - Hypothermia, initial encounter CHAUNCEY FINCH Jan 20, 2019 11:56
[2019-01-20 14:36] VITALS: BP 179/97
--- NOTE | 2019-01-20 15:06 | NUR ---
Physical Therapy Impression PT/OT co-treat and time split for billing purposes. PT addressed LE strengthening in supine and alternated with OT on UE's to facilitate rest breaks and ensure efficient process for strengthening. PT did adjust compression garment placed previously on R) LE by grails web application developer, as it was rolling and causing increased compression proximal to R) knee. Pellet Machine Operator orthodics and prosthetics was available to discuss progression of prosthesis available and to discuss care options regarding insurance applications pending. Physical Therapy Goals 1: Pt to complete bed mobility with Daniela 2: Pt to complete transfers with CGA and appropriate AD 3: Pt to ambulate 15' with CGA and appropriate AD Patient's Goals
--- NOTE | 2019-01-20 16:01 | NUR ---
Occupational Therapy Impression Pt having just returned to bed with assist from nursing after sitting up in chair. Gentle PROM/AAROM and soft tissue massage to R) UE. 2# weight incorporated into ther ex for left UE. Continue POC. Occupational Therapy Goals 1) Pt will be Min A UB/LB dressing. 2) Pt will be Min A toilet task. Patient's Goal
[2019-01-20 18:58] VITALS: BP 171/98
[2019-01-20] MEDS: PATCH REMOVAL 1 EA TP SCH (21:00)
[2019-01-21] MEDS: VANCOMYCIN(*) 1 GM VIAL 1 GM in NS(*) 0.9% 250 ML BAG 250 ML IVPB SCH ×3 (00:51→23:30)
[2019-01-21 01:21] VITALS: BP 158/88
[2019-01-21] MEDS: APAP/HYDROCODONE 325/7.5 TAB PO PRN ×6 (01:26→23:30)
[2019-01-21 03:51] VITALS: BP 189/98
[2019-01-21] MEDS: PANTOPRAZOLE SOD 40 MG TABEC PO SCH (05:40)
[2019-01-21 06:16] LABS: PLATELET COUNT, AUTOMATED 358 K/uL (150-450)
[2019-01-21] MEDS: ENOXAPARIN 40 MG/0.4ML SYR SC SCH (08:20)
[2019-01-21] MEDS: metFORMIN HCL XR 500 MG TABCR PO SCH ×2 (08:21→20:45)
[2019-01-21] MEDS: SPIRONOLACTONE 25 MG TAB PO SCH (08:21)
[2019-01-21] MEDS: FERROUS SULFATE 325 MG TAB PO SCH ×2 (08:21→16:39)
[2019-01-21] MEDS: INSULIN HUM LISPRO 100 UN/ML 3 ML VIAL SUBQ PRN ×3 (08:21→20:46)
[2019-01-21] MEDS: ASCORBIC ACID 500 MG TAB PO SCH ×2 (08:22→16:39)
[2019-01-21] MEDS: DOCUSATE SODIUM 100 MG CAP PO SCH ×2 (08:22→20:45)
[2019-01-21] MEDS: LIDOCAINE 5% PATCH TP SCH (08:23)
[2019-01-21] MEDS: FUROSEMIDE 20 MG/2 ML VIAL IVP SCH ×2 (08:23→14:36)
[2019-01-21] MEDS: diphenhydrAMINE 25 MG CAP PO PRN ×3 (10:31→22:41)
[2019-01-21 10:33] VITALS: BP 191/110
--- NOTE | 2019-01-21 12:28 | Hospitalist Progress Note ---
Subjective Progress Notes Subjective He reports better ROM and pain control in right shoulder. He has started to mobilize a bit better. Physical Exam Vital Signs Date Time Temp Pulse Resp B/P (MAP) Pulse Ox O2 Delivery O2 Flow Rate FiO2 01/21/19 10:33 98.3 86 20 191/110 (137) 96 Oxy Mask 3.0 01/20/19 10:56 30.0 Intake and Output 01/21/19 07:04 Intake Total 240 ml Output Total 4650 ml Balance -4410 ml Intake Oral 240 ml Output Urine Total 4650 ml # Bowel Movements 5 General Appearance: Alert, Awake Cardiovascular: Regular Rate and Rhythm Respiratory: Clear to Auscultation GI: Soft and Non-Tender Extremities: Warm, Perfused, Edema, Other (RLE dressed and in immobilizer) Psych: Alert & Oriented X3 Result Diagram: 01/21/1953201/21/19532 Assessment and Plan Problems: (1) Gangrene of right foot Status: Acute Assessment & Plan: He presented with gangrene of the right foot. He was on empiric treatment with Primaxin and vancomycin. Blood cultures grew Group B streptococcus and MRSA. Repeat cultures are negative. He is afebrile and WBC in normal range. An echocardiogram to evaluate the heart valves was negative for endocarditis. Dr. Sarkar (Surgery) performed amputation 01/07 and revision to BKA 01/09. Primaxin stopped on 01/12. He will need to remain on vancomycin for 14 days from the negative cultures. PICC line placed on 01/12. He will need antibiotics through 01/22. (2) Sepsis Status: Acute Assessment & Plan: Resolved. Due to RLE gangrene. He did have hypothermia, an elevated lactate, and elevated WBC on admission. He received IV fluid resuscitation and antibiotics as noted above. (3) ANEMIA, UNSPECIFIED Status: Acute Assessment & Plan: Due to acute illness and blood loss with surgeries. He did receive 2 units of red cells on 01/10 and again 01/16. He has remained stable since last transfusion. Will continue to watch labs. (4) DKA (diabetic ketoacidoses) Status: Resolved Assessment & Plan: Chronically on metformin. He presented with hyperglycemia and elevated anion gap (probable ketosis related to acute infection/starvation). He was treated with an insulin drip and fluid resuscitation. He was on Lantus and sliding scale level #2. He has been switched back to metformin 500mg BID plus SSI and blood sugars are reasonably well controlled. (5) Status post below knee amputation Assessment & Plan: Dr. Sarkar (Surgery) performed amputation 01/07 and revision to BKA 01/09. PT/OT/ST is working with him. He is in the process of obtaining a prosthesis. Likely need for Acute Rehab when stable and prosthesis is obtained. Surgical pain is controlled. (6) Hypokalemia Status: Resolved Assessment & Plan: Resolved. Watch labs. (7) Shoulder pain Status: Chronic Assessment & Plan: He appears to have some significant disability with the shoulder. It sounds like much of this may be chronic, but exacerbated by the acute illness. X-ray negative for acute process. I suspect he had some rotator cuff injury/strain. PT is working with him. Lidoderm patch placed on right shoulder for localized pain relief. (8) Hypervolemia Assessment & Plan: Improved. His weight was increased since admission and he was edematous. He has responded to the diuresis. Scrotal edema improving. Urination via urinal would be difficult at this point. As scrotal edema decreases and he becomes more mobile, we will remove Cavazos Cath. Exam Sepsis Risk: No Definite Risk Problem Qualifiers (1) DKA (diabetic ketoacidoses): Diabetes mellitus type: type 2 Diabetes mellitus complication detail: without coma Qualified Codes: E11.10 - Type 2 diabetes mellitus with ketoacidosis without coma SUSAN LOPEZ MD Jan 21, 2019 12:28
--- NOTE | 2019-01-21 12:43 | NUR ---
ST IMPRESSION Pt with improved short-term recall and use of internal/external memory techniques. Pt retained 5/6 items embedded within a functional task with min assist. Pt further referred to external visual aides to support retention of past and upcoming events, including daily rehabilitative goals. Word finding and expressive language skills also cont to improve, with successful use of word retrieval strategies and no noted instances of anomia throughout encounter. With multi-level sequencing tasks, pt benefits from repeated review of novel information, simplified instructions, and us of self-talk for improved comprehension and execution of instructions. Cont PREPRINT ANALYST POC.
[2019-01-21 13:42] VITALS: BP 128/69
--- NOTE | 2019-01-21 14:29 | NUR ---
Occupational Therapy Impression Pt reporting increased pain in R) UE this date, demonstrating improved shoulder AROM. Max-Total Ax2 bed mobility. Pt attempted sit<>stand with EZ lift and Total Ax2, unable to complete to full upright stand. Minimal initiation. Pt with minimal progression this date, requiring encouragement to engage in tx. Continue POC. Occupational Therapy Goals 1) Pt will be Min A UB/LB dressing. 2) Pt will be Min A toilet task. Patient's Goal
--- NOTE | 2019-01-21 15:17 | NUR ---
Physical Therapy Impression Pt with poor tolerance to activity and minimal improvement in functional mobility. Pt currently requires Max A x2 for supine<>sit and was unsuccessful with attempts to stand into EZ lift. Physical Therapy Goals 1: Pt to complete bed mobility with Daniela 2: Pt to complete transfers with CGA and appropriate AD 3: Pt to ambulate 15' with CGA and appropriate AD Patient's Goals
[2019-01-21 17:01] VITALS: BP 147/73
[2019-01-21] MEDS: PATCH REMOVAL 1 EA TP SCH (20:46)
[2019-01-21] MEDS: MAG HYD/AL HYD/SIMETH 30ML UDC PO PRN (20:58)
[2019-01-21 22:43] VITALS: BP 172/104
[2019-01-22] MEDS: APAP/HYDROCODONE 325/7.5 TAB PO PRN ×4 (03:31→20:47)
[2019-01-22 03:32] VITALS: BP 170/90
[2019-01-22] MEDS: PANTOPRAZOLE SOD 40 MG TABEC PO SCH (05:07)
[2019-01-22] MEDS: diphenhydrAMINE 25 MG CAP PO PRN ×2 (05:07→23:00)
[2019-01-22 07:22] VITALS: BP 198/96
[2019-01-22] MEDS: FERROUS SULFATE 325 MG TAB PO SCH ×2 (08:18→16:54)
[2019-01-22] MEDS: INSULIN HUM LISPRO 100 UN/ML 3 ML VIAL SUBQ PRN ×2 (08:18→12:04)
[2019-01-22] MEDS: ASCORBIC ACID 500 MG TAB PO SCH ×2 (08:21→16:55)
[2019-01-22] MEDS: metFORMIN HCL XR 500 MG TABCR PO SCH ×2 (10:02→20:47)
[2019-01-22] MEDS: DOCUSATE SODIUM 100 MG CAP PO SCH ×2 (10:02→20:47)
[2019-01-22] MEDS: SPIRONOLACTONE 25 MG TAB PO SCH (10:02)
[2019-01-22] MEDS: ENOXAPARIN 40 MG/0.4ML SYR SC SCH (10:02)
[2019-01-22] MEDS: LIDOCAINE 5% PATCH TP SCH (10:03)
[2019-01-22] MEDS: FUROSEMIDE 20 MG/2 ML VIAL IVP SCH ×2 (10:03→14:09)
[2019-01-22 10:57] VITALS: BP 176/90
--- NOTE | 2019-01-22 11:50 | Hospitalist Progress Note ---
Subjective Progress Notes Subjective No acute events overnight. His shoulder mobility is improving. He is working with PT. He is tolerating diuresis well. Patient Complains of: Neurological: No: Confusion Cardiovascular: No: Chest Pain, Palpitations Respiratory: No: Congestion, Shortness of Breath Gastrointestinal: No Nausea, No Vomiting Musculoskeletal: Pain (Shoulder pain and mobility are improving. Surgical sight pain is tolerable. ) Physical Exam Vital Signs Date Time Temp Pulse Resp B/P (MAP) Pulse Ox O2 Delivery O2 Flow Rate FiO2 01/22/19 10:57 98.2 80 24 176/90 (118) 96 Nasal Cannula 3.0 01/20/19 10:56 30.0 Intake and Output 01/22/19 07:04 Intake Total 650 ml Output Total 2901 ml Balance -2251 ml Intake Oral 400 ml IV Total 250 ml Output Urine Total 2900 ml Stool Total 1 ml General Appearance: Alert, Awake, No Acute Distress Neuro: No Gross deficits Cardiovascular: Regular Rate and Rhythm Respiratory: No Respiratory Distress, Clear to Auscultation Extremities: Edema (+3 Pitting edema noted to Left Lower Extremity. ) Psych: Alert & Oriented X3, Appropriate Mood & Affect Result Diagram: 01/21/1953201/21/19532 Assessment and Plan Problems: (1) Gangrene of right foot Status: Acute Assessment & Plan: He presented with gangrene of the right foot. He was on empiric treatment with Primaxin and vancomycin. Blood cultures grew Group B streptococcus and MRSA. Repeat cultures are negative. He is afebrile and WBC in normal range. An echocardiogram to evaluate the heart valves was negative for endocarditis. Dr. Sarkar (Surgery) performed amputation 01/07 and revision to BKA 01/09. Primaxin stopped on 01/12. He will need to remain on vancomycin for 14 days from the negative cultures. PICC line placed on 01/12. He will receive his final dose of Vancomycin today. (2) Sepsis Status: Acute Assessment & Plan: Resolved. Due to RLE gangrene. He did have hypothermia, an elevated lactate, and elevated WBC on admission. He received IV fluid resuscitation and antibiotics as noted above. (3) ANEMIA, UNSPECIFIED Status: Acute Assessment & Plan: Due to acute illness and blood loss with surgeries. He did receive 2 units of red cells on 01/10 and again 01/16. He has remained stable since last transfusion. Will continue to watch labs. (4) DKA (diabetic ketoacidoses) Status: Resolved Assessment & Plan: Chronically on metformin. He presented with hyperglycemia and elevated anion gap (probable ketosis related to acute infection/starvation). He was treated with an insulin drip and fluid resuscitation. He was on Lantus and sliding scale level #2. He has been switched back to metformin 500mg BID plus SSI and blood sugars are reasonably well controlled. (5) Status post below knee amputation Assessment & Plan: Dr. Sarkar (Surgery) performed amputation 01/07 and revision to BKA 01/09. PT/OT/ST is working with him. He is in the process of obtaining a prosthesis. Likely need for Acute Rehab when stable and prosthesis is obtained. Surgical pain is controlled. (6) Hypertension Assessment & Plan: Blood pressure has been running consistently elevated. Will start treatment with Clonidine 0.2mg BID and continue to monitor. Will consider switching to an KATHRYN inhibitor when diuresis is complete. (7) Hypokalemia Status: Resolved Assessment & Plan: Resolved. Watch labs. (8) Shoulder pain Status: Chronic Assessment & Plan: He appears to have some significant disability with the shoulder. It sounds like much of this may be chronic, but exacerbated by the acute illness. X-ray negative for acute process. I suspect he had some rotator cuff injury/strain. PT is working with him. Lidoderm patch placed on right shoulder for localized pain relief. Mobility and pain is improving. (9) Hypervolemia Assessment & Plan: Improved. His weight was increased since admission and he was edematous. He is responding to the diuresis. His RLE remains +3 pitting edema. Scrotal edema improving. Urination via urinal would be difficult at this point. As scrotal edema decreases and he becomes more mobile, we will remove Cavazos Cath. Exam Sepsis Risk: No Definite Risk Problem Qualifiers (1) DKA (diabetic ketoacidoses): Diabetes mellitus type: type 2 Diabetes mellitus complication detail: without coma Qualified Codes: E11.10 - Type 2 diabetes mellitus with ketoacidosis with out coma CHAUNCEY FINCH Jan 22, 2019 11:50
[2019-01-22] MEDS: VANCOMYCIN(*) 1 GM VIAL 1 GM in NS(*) 0.9% 250 ML BAG 250 ML IVPB SCH (12:02)
[2019-01-22] MEDS: cloNIDine HCL 0.1 MG TAB PO SCH ×2 (12:03→20:47)
[2019-01-22 12:07] VITALS: BP 161/88
--- NOTE | 2019-01-22 12:50 | NUR ---
Zeroed bed after pt moved to chair, christo does not have scale, pt has not been back in bed to weigh at this time Addendum: 01/22/19 at 1251 by MIGUELITO ARNDT RN Amended: Links added.
--- NOTE | 2019-01-22 14:35 | NUR ---
Occupational Therapy Impression Mod-Max Ax1 partial sit<>stands x4 attempts. See PT note. Lj lift utilized for return chair<>bed. Min A rolling side to side for pastora-care. Recommend further rehab. Occupational Therapy Goals 1) Pt will be Min A UB/LB dressing. 2) Pt will be Min A toilet task. Patient's Goal
--- NOTE | 2019-01-22 17:00 | NUR ---
Physical Therapy Impression PT/OT co-treat for pt safety and time split for billing purposes. Pt seated in recliner upon therapist arrival and notes that he has been up in chair since 7:30 am. Prior to use of christo to complete full transfer back to bed, pt participated in mobility in chair and attempts x 4 reps for sit to/from stand with Mod/Max assist by PT. Pt requires significant encouragement to even simply lean forward in chair initially and place L) foot on the ground. Once pt was able to maintain his sitting balance indep without back support we then attempted to lean forward and press up for an armchair pushup/sit to stand simulation. Pt was able to unweight bottom, but not fully coordinate the effort to scoot back and press up to a more upright position. Pt completed this practice skill x 4 reps and remained sitting at edge of chair while christo lift was maneuvered for transfer back to bed. Physical Therapy Goals 1: Pt to complete bed mobility with Daniela 2: Pt to complete transfers with CGA and appropriate AD 3: Pt to ambulate 15' with CGA and appropriate AD Patient's Goals
[2019-01-22 17:17] VITALS: BP 169/103
[2019-01-22] MEDS: PATCH REMOVAL 1 EA TP SCH (21:00)
[2019-01-23 03:53] VITALS: BP 177/92
[2019-01-23] MEDS: APAP/HYDROCODONE 325/7.5 TAB PO PRN ×2 (04:14→09:00)
[2019-01-23] MEDS: PANTOPRAZOLE SOD 40 MG TABEC PO SCH (05:44)
[2019-01-23] MEDS: SPIRONOLACTONE 25 MG TAB PO SCH (08:48)
[2019-01-23] MEDS: DOCUSATE SODIUM 100 MG CAP PO SCH (08:49)
[2019-01-23] MEDS: FERROUS SULFATE 325 MG TAB PO SCH (08:49)
[2019-01-23] MEDS: cloNIDine HCL 0.1 MG TAB PO SCH (08:49)
[2019-01-23] MEDS: ASCORBIC ACID 500 MG TAB PO SCH (08:49)
[2019-01-23] MEDS: ENOXAPARIN 40 MG/0.4ML SYR SC SCH (08:50)
[2019-01-23] MEDS: metFORMIN HCL XR 500 MG TABCR PO SCH (08:50)
[2019-01-23] MEDS: FUROSEMIDE 20 MG/2 ML VIAL IVP SCH (08:50)
[2019-01-23] MEDS: INSULIN HUM LISPRO 100 UN/ML 3 ML VIAL SUBQ PRN (09:04)
[2019-01-23] MEDS: LIDOCAINE 5% PATCH TP SCH (09:09)
--- NOTE | 2019-01-23 11:01 | Transfer Summary (ECF/SWB) ---
Transfer Summary (ECF/SWB) Problems: (1) Gangrene of right foot Status: Acute Assessment & Plan: He presented with gangrene of the right foot. He was on empiric treatment with Primaxin and vancomycin. Blood cultures grew Group B streptococcus and MRSA. Repeat cultures are negative. He is afebrile and WBC in normal range. An echocardiogram to evaluate the heart valves was negative for endocarditis. Dr. Sarkar (Surgery) performed amputation 01/07 and revision to BKA 01/09. Primaxin stopped on 01/12. He has finished his course of Vancomycin. PICC line placed on 01/12 (2) Sepsis Status: Acute Assessment & Plan: Resolved. Due to RLE gangrene. He did have hypothermia, an elevated lactate, and elevated WBC on admission. He received IV fluid resuscitation and antibiotics as noted above. (3) ANEMIA, UNSPECIFIED Status: Acute Assessment & Plan: Due to acute illness and blood loss with surgeries. He did receive 2 units of red cells on 01/10 and again 01/16. He has remained stable since last transfusion. Will continue to watch labs. (4) DKA (diabetic ketoacidoses) Status: Resolved Assessment & Plan: Chronically on metformin. He presented with hyperglycemia and elevated anion gap (probable ketosis related to acute infection/starvation). He was treated with an insulin drip and fluid resuscitation. He was on Lantus and sliding scale level #2. He has been switched back to metformin 500mg BID pl us SSI and blood sugars are reasonably well controlled. (5) Status post below knee amputation Assessment & Plan: Dr. Sarkar (Surgery) performed amputation 01/07 and revision to BKA 01/09. PT/OT/ST is working with him. Surgical pain is controlled. He will need acute rehab for strengthening, and has expressed interest [facility]. He will eventually be fitted for a prosthesis when he is stronger and able to manage better, with more independence. (6) Hypertension Assessment & Plan: Blood pressure has been running consistently elevated. He will remain on Clonidine 0.2mg BID and will continue to monitor. Will consider switching to an KATHRYN inhibitor when diuresis is complete. (7) Hypokalemia Status: Resolved Assessment & Plan: Resolved. Watch labs. (8) Shoulder pain Status: Chronic Assessment & Plan: He appears to have some significant disability with the s [place]oulder. It sounds like much of this may be chronic, but exacerbated by the acute illness. X-ray negative for acute process. I suspect he had some rotator cuff injury/strain. PT is working with him. Lidoderm patch placed on right shoulder for localized pain relief. Mobility and pain is improving. (9) Hypervolemia Assessment & Plan: Improved. His weight was increased since admission and he was edematous. He is responding to the diuresis. His RLE remains +3 pitting edema. Scrotal edema improving. Urination via urinal would be difficult at this point. As scrotal edema decreases and he becomes more mobile, we will remove Cavazos Cath. Latest Vital Signs Vital Signs Date Time Temp Pulse Resp B/P (MAP) Pulse Ox O2 Delivery O2 Flow Rate FiO2 01/23/19 08:12 Nasal Cannula 2.0 01/23/19 03:53 98.1 75 16 177/92 (120) 98 01/20/19 10:56 30.0 Result Diagram: 01/[birth year]/1933 01/21/19532 Condition: Improved Disposition: SNF/NH Treatment Goals and Plan Patient requires shelter and/or skilled rehabilitation with the goal to increase independence with ADL's, functional strength and mobility. Continue and adjust medication regimen. Services Required: PT, OT, IV Medications Problem Qualifiers (1) DKA (diabetic ketoacidoses): Diabetes mellitus type: type 2 Diabetes mellitus complication detail: without coma Qualified Codes: E11.10 - Type 2 diabetes mellitus with ketoacidosis without coma CHAUNCEY FINCH Jan 23, 2019 11:01
== END 2019-01-23 10:40 | DRG 853 ==
LOC: ER 10:02 → ICU 12:10 → MED 01-07 12:00 → ECF 01-23 10:42
PROVIDERS: ADMIT Internal Medicine; ATTEND Internal Medicine
PROC: 02HV33Z Insertion of Infusion Device into Superior Vena Cava, Percutaneous Approach (ICD-10-PCS; 2019-01-06)
PROC: 0Y6M0Z0 Detachment at Right Foot, Complete, Open Approach (ICD-10-PCS; principal; 2019-01-06 14:47)
PROC: 30243N1 Transfusion of Nonautologous Red Blood Cells into Central Vein, Percutaneous Approach (ICD-10-PCS; 2019-01-10)
PROC: 5A09357 Assistance with Respiratory Ventilation, Less than 24 Consecutive Hours, Continuous Positive Airway Pressure (ICD-10-PCS; 2019-01-10)
PROC: 02HV33Z Insertion of Infusion Device into Superior Vena Cava, Percutaneous Approach (ICD-10-PCS; 2019-01-12)
PROC: B518ZZA Fluoroscopy of Superior Vena Cava, Guidance (ICD-10-PCS; 2019-01-12)
PROC: 0Y6H0Z2 Detachment at Right Lower Leg, Mid, Open Approach (ICD-10-PCS; 2019-01-13)
DX: A41.02 Sepsis due to Methicillin resistant Staphylococcus aureus (principal); E11.10 Type 2 diabetes mellitus with ketoacidosis without coma; D62 Acute posthemorrhagic anemia; E11.52 Type 2 diabetes mellitus with diabetic peripheral angiopathy with gangrene; I96 Gangrene, not elsewhere classified; B95.1 Streptococcus, group B, as the cause of diseases classified elsewhere; I10 Essential (primary) hypertension; E87.6 Hypokalemia; E87.70 Fluid overload, unspecified; E86.0 Dehydration; E83.42 Hypomagnesemia; T68.XXXA Hypothermia, initial encounter; L89.152 Pressure ulcer of sacral region, stage 2; Z79.84 Long term (current) use of oral hypoglycemic drugs; Z88.0 Allergy status to penicillin; W93.8XXA Exposure to other excessive cold of man-made origin, initial encounter
CPT/HCPCS: 36415; 36416; 36573; 70450; 70551; 71045; 76942; 80202; 80305; 81001; 82009; 82040; 82247; 82310; 82374; 82435; 82550; 82565; 82728; 82803; 82947; 82948; 83540; 83550; 83605; 83690; 83735; 83930; 84075; 84132; 84155; 84295; 84450; 84460; 84484; 84520; 85014; 85018; 85025; 85610; 85651; 86140; 86850; 86900; 86901; 86920; 87040; 87077; 87186; 87324; 87449; 88305; 92523; 93005; 93306; 94660; 96361; 96365; 96375; 97161; 97166; 99285; C1751; C1758; C9113; J0131; J0171; J0743; J1170; J1335; J1642; J1650; J1815; J1940; J2001; J2060; J2250; J2405; J2550; J2704; J2795; J2997; J3010; J3370; J3480; J3490; J7030; J7040; J7050; P9016; Q0163

== ENCOUNTER 2019-01-23 10:50 | Inpatient (IN) | payer SELFPAY ==
[~2019-01-23] VITALS: Ht 165.1 cm; Wt 128.9 kg
[2019-01-23 10:33] VITALS: BP 144/80
[~2019-01-23 10:50] MED LIST changes: +METF-450 PO; -NS(*) 0.9% 1000 ML BAG 1,000 ML IV ONE
[2019-01-23] MEDS ORDERED: MAG HYD/AL HYD/SIMETH 30ML UDC PO PRN ×2 (11:03→11:10)
[2019-01-23] MEDS ORDERED: ALTEPLASE RECOMB 2 MG VIAL IVP PRN (11:03)
[2019-01-23] MEDS ORDERED: WATER STERILE 10 ML VIAL IVP PRN (11:10)
--- NOTE | 2019-01-23 11:12 | Consultant Pharmacy Review ---
Retail Marketing Specialist Review Medication Review Do All Mecications have a Diag: Yes Comments Regarding the Review Labs: periodic HgA1c, CBC, electrolyte levels He may receive the pnuemococcal vaccine, if he desires; give the Prevnar first, and the Pneumovax one year later. ZACK UPTON Jan 23, 2019 11:12
--- NOTE | 2019-01-23 11:15 | OT ECF NOTE ---
Type of Note: Initial Note Primary Medical Diagnosis: R BKA Occupational Therapy Evaluation Date: 01/23/19 SUBJECTIVE: Prior Hospitalization: [facility] Med/ Surgical Unit from 01/05/19 to 01/23/19 Prior Level of Function: Independent Prior Living Status: Single level house Spouse Community Services: Independent Home Accessibility: Stairs with rails All needs on one level Equipment Owned: none Medical Complications/Past Medical History: Please refer to chart for details. Psychosocial Support: Very supportive Pain Scale (0-10): None stated during initial subjective evaluation. Hand Dominance: right OBJECTIVE: Strength: MMT: Right Left Shoulder Flexion [*] [*] Elbow Flexion [*] [*] Wrist Extension [*] [*] Director Of Services [*] [*] (5= normal, 4= good, 3= fair, 2= poor, 1= trace) ROM: LUE shoulder is limited. Functional Transfer: Assistive Device: EZ/Patient assisted lift Transfer Ability: 2-person assist Maximum assistance ADL: Upper body dressing: Assistive device: Upper body dressing ability: Maximum assistance Lower body dressing: Assistive device: Lower body dressing ability: Total assistance Toileting: Assistive device: Toileting ability: Total assistance Grooming/hygiene: Seated Assistive device: Grooming ability: Set-up Bathing: Assistive device: Bathing ability: Standardized Assessment: Cecilia Index of Activities of Daily Living- Pt. scored a 4/20 on this Index upon initial evaluation. ASSESSMENT: Pt. is a 53 year old male admitted with [facility] with gangrene infection of Right foot. Pt. 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 Pt. and are long haul truckers and currently reside in a one level home with 5 stairs to access. Pt. states she will find a handicap accessible apartment for pt. to d/c to. Pt.was independent with all ADL's and activities prior to [facility] admission. Pt. and own no DME. Pt. has been admitted to [facility] ECF in order to increase independence in all ADL and gain strength in order to complete a stand pivot transfer with use of FWW. Pt. currently is requiring a high level of assistance (2 people) or use of christo to complete transfers and is dependent for all toileting activities. Problem List/Current Limitations: Pain Decreased WB Decreased activity bettie Decreased strength Decreased sensation Decreased ROM Decreased coordination Decreased balance Generalized weakness Decreased problem solving Short Term Goals: 1. Pt. to perform dressing activities with Min A. 2. Pt. to perform showering activities with Mod A. 3. Pt. to perform toileting activities with Mod A. 4. Pt. to increase Cecilia Index of ADL score by 2 points. Group Home Goals: Return to [place] with . Patient Goals: Return to [place] with . Rehabilitation Prognosis: Fair Barriers to Discharge: Needs to find Handicap accessible apartment, high level of current assist to complete all ADL's and transfers. PLAN: The patient will benefit from skilled occupational therapy services 5 times per week for 2 weeks including: Ther ex ADL training Safety training Ther act Transfer training Adaptive equip training Bed mobility Thank you for this referral. If you have any questions, concerns, or comments about this report or plan, please contact me at . Stephany Cherry, OTR/L Occupational Therapist RACHEAL
[2019-01-23] MEDS: INSULIN HUM LISPRO 100 UN/ML 3 ML VIAL SUBQ PRN ×3 (12:35→21:49)
[2019-01-23] MEDS: FUROSEMIDE 20 MG/2 ML VIAL IVP SCH (13:51)
[2019-01-23] MEDS: APAP/HYDROCODONE 325/7.5 TAB PO PRN ×3 (14:10→22:45)
--- NOTE | 2019-01-23 15:33 | Medical Nutrition Therapy ---
Nutrition Anthropometrics Height (Inches): 65 Weight (Pounds): 272 BMI: 42 Hasmukh Nutrition Score: Adequate Hasmukh Nutrition Risk Score: 14 Dietary Referral Nutrition Risk Factors: Stg 2-4 Press Ulcer Nutrition Risk Comment: Physical Findings Physical Appearance: Morbidly Obese 40+ Skin Appearance Skin Appearance: Edema Edema Location Modifier: Both Edema Location: Scrotal Type of Edema: Degree of Edema: 1+ Gastrointestinal Symptoms GI Symtoms: Change in Bowel Pattern Tube Present: Bowel Sounds: Recent Bowel Pattern: Incontinent Stool Characteristics: Nutritional Diagnosis Nutritional Risk Acuity 2: Abcess/Non-Healing Wound Past Medical History: DM2 Nutritional Acuity: 2-Moderate Nutrition Diagnosis: Increased Nutrient Needs Nutrition Problem/Etiology/Sym: R/T wound healing AEB recovery from amputation Energy Requirement: 2029 (HB (adjusted)) Protein Requirement: 115 (115-140 g/day (1-1.4 g/kg)) Fluid Requirement: 2029 ((1 ml/kcal)) Diet Type: Diabetic Nutrition Intervention: Cont diet as ordered Nutrition Monitoring & Eval Nutrition Goals: Eat 75-100% Meal Nutrition Monitoring: Intake, laboratory values RD Patient Assessment Time: [address] Assessment Type: RD Re-Assessment Patient Nutrition Acuity: 2-Moderate Follow Up Date: Jan 28, 2019 Nutritional Comment: 01/23/2019: Pt transferred to F. According to care activity, pt no longer presents with sepsis. Will continue to monitor pt for healing of all wounds, and his intake. -SHARON STAFFORD Jan 23, 2019 15:06
[2019-01-23] MEDS: diphenhydrAMINE 25 MG CAP PO PRN ×2 (15:44→22:45)
--- NOTE | 2019-01-23 16:18 | PT ECF NOTE ---
Type of Note: Initial Note Primary Medical Diagnosis: s/p R BKA Physical Therapy Evaluation Date: 01/23/19 SUBJECTIVE: Prior Hospitalization: [facility] Med/Surg, please see EMR for details Prior Level of Function: Pt was independent with functional mobility, ADLs, and IADLs prior to BKA. Pt was working as a local tanker truck driver prior. Prior Living Status: Pt's current home has stairs to enter. Pt's is looking for a wheelchair accessible home for DC, Spouse Community Services: No known needs prior to BKA. Current needs to be determined Home Accessibility: Stairs with rails, see above Equipment Owned: none currently Medical Complications/Past Medical History: See Matter and Form Psychosocial Support: Supportive who has own medical problems and is unable to assist physically Pain Scale (0-10): Pt reports pain in residual limb OBJECTIVE: Strength: NT R LE due to recent BKA Left Lower Extremity: 2-3/5 grossly observed supine. Pt unable to tolerate MMT seated at EOB. Pt declined functional mobility upon eval due to being tired. Upon chart review while on Med/Surg, Pt required Max A x2 for supine<>sit and was unable to stand even with Max-Total A from multiple therapists. Currently Pt requires a Lj lift for safe transfers. ASSESSMENT: Pt presents with significantly decreased abilities to perform any functional mobility s/p R BKA with multiple medical complications. Pt requires skilled PT for functional mobility training, strengthening, and amputee education in order to increase independence and DC home at a functional level. Problem List/Current Limitations: Pain, Decreased activity tolerance, Decreased strength, Decreased ROM, Decreased coordination, Decreased balance, Generalized weakness, Poor safety awareness, Decreased attention, Memory deficits, Decreased problem solving, Decreased initiation, Lack of motivation Short Term Goals: 1. Mod I bed mobility. 2. Mod I stand pivot transfers. 3. Mod I wheelchair mobility. Shelter Goals: DC home at a wheelchair level Patient Goals: DC home Rehabilitation Prognosis: Fair Barriers for Discharge: Pt's current home set up, decreased overall health condition, minimal progress with functional mobility since BKA PLAN: The patient will benefit from skilled physical therapy services 5 times per week for 2 weeks including: Therapeutic Exercise, Therapeutic Activities, Transfer Training, Gait Training, Stair Training, Manual Therapy, ADL's, Safety Training, Neuromuscular Re-educ., Pt/Caregiver Training, Bed Mobility Thank you for this referral. If you have any questions, concerns, or comments about this report or plan, please contact me at . Mary Daniels, PT, DPT, GCS MTDD
[2019-01-23] MEDS: ASCORBIC ACID 500 MG TAB PO SCH (17:39)
[2019-01-23] MEDS: FERROUS SULFATE 325 MG TAB PO SCH (17:39)
[2019-01-23 20:05] VITALS: BP 126/69
[2019-01-23] MEDS: PATCH REMOVAL 1 EA TP SCH (21:00)
[2019-01-23] MEDS: cloNIDine HCL 0.1 MG TAB PO SCH ×2 (21:45→21:49)
[2019-01-23] MEDS: metFORMIN HCL XR 500 MG TABCR PO SCH (21:49)
[2019-01-23] MEDS: DOCUSATE SODIUM 100 MG CAP PO SCH (21:49)
[2019-01-24] MEDS ORDERED: PROMETHAZINE 25 MG/ML 1 ML AMP IVP PRN (04:55)
[2019-01-24] MEDS: PANTOPRAZOLE SOD 40 MG TABEC PO SCH (05:13)
[2019-01-24 07:48] VITALS: BP 192/97
[2019-01-24] MEDS: SPIRONOLACTONE 25 MG TAB PO SCH (09:01)
[2019-01-24] MEDS: metFORMIN HCL XR 500 MG TABCR PO SCH ×2 (09:01→21:24)
[2019-01-24] MEDS: APAP/HYDROCODONE 325/7.5 TAB PO PRN ×4 (09:01→21:28)
[2019-01-24] MEDS: DOCUSATE SODIUM 100 MG CAP PO SCH ×2 (09:02→21:00)
[2019-01-24] MEDS: ASCORBIC ACID 500 MG TAB PO SCH (09:02)
[2019-01-24] MEDS: cloNIDine HCL 0.1 MG TAB PO SCH ×2 (09:02→21:24)
[2019-01-24] MEDS: FERROUS SULFATE 325 MG TAB PO SCH (09:02)
[2019-01-24] MEDS: FUROSEMIDE 20 MG/2 ML VIAL IVP SCH (09:03)
[2019-01-24] MEDS: LIDOCAINE 5% PATCH TP SCH (09:03)
[2019-01-24] MEDS: INSULIN HUM LISPRO 100 UN/ML 3 ML VIAL SUBQ PRN ×4 (09:04→21:25)
[2019-01-24] MEDS: ENOXAPARIN 40 MG/0.4ML SYR SC SCH (09:05)
[2019-01-24 10:19] LABS: PLATELET COUNT, AUTOMATED 413 K/uL (150-450)
[2019-01-24] MEDS ORDERED: PROMETHAZINE HCL 25 MG TAB PO PRN (11:00)
[2019-01-24] MEDS: diphenhydrAMINE 25 MG CAP PO PRN ×2 (15:35→21:45)
[2019-01-24 15:36] VITALS: BP 152/77
[2019-01-24] MEDS: CYCLOBENZAPRINE HCL 10 MG TAB PO PRN (18:40)
[2019-01-24] MEDS: PATCH REMOVAL 1 EA TP SCH (21:00)
[2019-01-25] MEDS: APAP/HYDROCODONE 325/7.5 TAB PO PRN ×6 (01:49→22:45)
[2019-01-25] MEDS: diphenhydrAMINE 25 MG CAP PO PRN ×2 (04:44→22:45)
[2019-01-25] MEDS: PANTOPRAZOLE SOD 40 MG TABEC PO SCH (06:14)
[2019-01-25 07:31] VITALS: BP 175/89
[2019-01-25] MEDS: LIDOCAINE 5% PATCH TP SCH (08:18)
[2019-01-25] MEDS: SPIRONOLACTONE 25 MG TAB PO SCH (08:19)
[2019-01-25] MEDS: cloNIDine HCL 0.1 MG TAB PO SCH ×2 (08:19→21:13)
[2019-01-25] MEDS: FUROSEMIDE 20 MG TAB PO SCH (08:20)
[2019-01-25] MEDS: DOCUSATE SODIUM 100 MG CAP PO SCH ×2 (08:20→21:00)
[2019-01-25] MEDS: metFORMIN HCL XR 500 MG TABCR PO SCH ×2 (08:20→21:13)
[2019-01-25] MEDS: FERROUS SULFATE 325 MG TAB PO SCH (08:20)
[2019-01-25] MEDS: ENOXAPARIN 40 MG/0.4ML SYR SC SCH (08:22)
[2019-01-25] MEDS: ASCORBIC ACID 500 MG TAB PO SCH (08:22)
[2019-01-25] MEDS: CYCLOBENZAPRINE HCL 10 MG TAB PO PRN ×2 (08:22→21:13)
[2019-01-25] MEDS: INSULIN HUM LISPRO 100 UN/ML 3 ML VIAL SUBQ PRN ×4 (08:27→21:13)
[2019-01-25 15:45] VITALS: BP 149/84
[2019-01-25] MEDS: PATCH REMOVAL 1 EA TP SCH (21:00)
[2019-01-26] MEDS: APAP/HYDROCODONE 325/7.5 TAB PO PRN ×5 (02:49→21:32)
[2019-01-26] MEDS: PANTOPRAZOLE SOD 40 MG TABEC PO SCH (06:44)
[2019-01-26] MEDS: diphenhydrAMINE 25 MG CAP PO PRN (06:53)
[2019-01-26 07:40] VITALS: BP 199/99
[2019-01-26] MEDS: ENOXAPARIN 40 MG/0.4ML SYR SC SCH (08:37)
[2019-01-26] MEDS: LIDOCAINE 5% PATCH TP SCH (08:37)
[2019-01-26] MEDS: DOCUSATE SODIUM 100 MG CAP PO SCH ×2 (08:37→21:17)
[2019-01-26] MEDS: FUROSEMIDE 20 MG TAB PO SCH (08:37)
[2019-01-26] MEDS: ASCORBIC ACID 500 MG TAB PO SCH (08:38)
[2019-01-26] MEDS: metFORMIN HCL XR 500 MG TABCR PO SCH ×2 (08:38→21:17)
[2019-01-26] MEDS: FERROUS SULFATE 325 MG TAB PO SCH (08:38)
[2019-01-26] MEDS: SPIRONOLACTONE 25 MG TAB PO SCH (08:38)
[2019-01-26] MEDS: cloNIDine HCL 0.1 MG TAB PO SCH ×2 (08:38→21:17)
[2019-01-26] MEDS: INSULIN HUM LISPRO 100 UN/ML 3 ML VIAL SUBQ PRN ×4 (08:40→21:18)
--- NOTE | 2019-01-26 12:38 | ECF History & Physical ---
Transfer Summary (ECF/SWB) Problems: (1) Gangrene of right foot Status: Acute Assessment & Plan: He presented with gangrene of the right foot. He was on empiric treatment with Primaxin and vancomycin. Blood cultures grew Group B streptococcus and MRSA. Repeat cultures are negative. He is afebrile and WBC in normal range. An echocardiogram to evaluate the heart valves was negative for endocarditis. Dr. Sarkar (Surgery) performed amputation 01/07 and revision to BKA 01/09. Primaxin stopped on 01/12. He has finished his course of Vancomycin. PICC line placed on 01/12 (2) Sepsis Status: Acute Assessment & Plan: Resolved. Due to RLE gangrene. He did have hypothermia, an elevated lactate, and elevated WBC on admission. He received IV fluid resuscitation and antibiotics as noted above. (3) ANEMIA, UNSPECIFIED Status: Acute Assessment & Plan: Due to acute illness and blood loss with surgeries. He did receive 2 units of red cells on 01/10 and again 01/16. He has remained stable since last transfusion. Will continue to watch labs. (4) DKA (diabetic ketoacidoses) Status: Resolved Assessment & Plan: Chronically on metformin. He presented with hyperglycemia and elevated anion gap (probable ketosis related to acute infection/starvation). He was treated with an insulin drip and fluid resuscitation. He was on Lantus and sliding scale level #2. He has been switched back to metformin 500mg BID pl us SSI and blood sugars are reasonably well controlled. (5) Status post below knee amputation Assessment & Plan: Dr. Sarkar (Surgery) performed amputation 01/07 and revision to BKA 01/09. PT/OT/ST is working with him. Surgical pain is controlled. He will need acute rehab for strengthening, and has expressed interest in the Extended Care Facility. He will eventually be fitted for a prosthesis when he is stronger and able to manage better, with more independence. (6) Hypertension Assessment & Plan: Blood pressure has been running consistently elevated. He will remain on Clonidine 0.2mg BID and will continue to monitor. Will consider switching to an KATHRYN inhibitor when diuresis is complete. (7) Hypokalemia Status: Resolved Assessment & Plan: Resolved. Watch labs. (8) Shoulder pain Status: Chronic Assessment & Plan: He appears to have some significant disability with the s houlder. It sounds like much of this may be chronic, but exacerbated by the acute illness. X-ray negative for acute process. I suspect he had some rotator cuff injury/strain. PT is working with him. Lidoderm patch placed on right shoulder for localized pain relief. Mobility and pain is improving. (9) Hypervolemia Assessment & Plan: Improved. His weight was increased since admission and he was edematous. He is responding to the diuresis. His RLE remains +3 pitting edema. Scrotal edema improving. Urination via urinal would be difficult at this point. As scrotal edema decreases and he becomes more mobile, we will remove Cavazos Cath. Latest Vital Signs Vital Signs Date Time Temp Pulse Resp B/P (MAP) Pulse Ox O2 Delivery O2 Flow Rate FiO2 01/23/19 08:12 Nasal Cannula 2.0 01/23/19 03:53 98.1 75 16 177/92 (120) 98 01/20/19 10:56 30.0 Result Diagram: 01/21/1953201/21/19532 Condition: Improved Disposition: SNF/NH Treatment Goals and Plan Patient requires chcf and/or skilled rehabilitation with the goal to increase independence with ADL's, functional strength and mobility. Continue and adjust medication regimen. Services Required: PT, OT, IV Medications Problem Qualifiers (1) DKA (diabetic ketoacidoses): Diabetes mellitus type: type 2 Diabetes mellitus complication detail: without coma Qualified Codes: E11.10 - Type 2 diabetes mellitus with ketoacidosis without coma CHAUNCEY FINCH Jan 23, 2019 11:01 <Electronically signed by CHAUNCEY FINCH> D/ 00 00 GUME/EDGAR CC: RACHEAL
[2019-01-26 16:30] VITALS: BP 184/99
--- NOTE | 2019-01-26 17:00 | Medical Nutrition Therapy ---
Physical Findings Physical Appearance: Morbidly Obese 40+ Skin Appearance Skin Appearance: Edema Edema Location Modifier: Both Edema Location: Hand Type of Edema: Degree of Edema: 2+ Gastrointestinal Symptoms GI Symtoms: Nausea Tube Present: Bowel Sounds: Recent Bowel Pattern: Incontinent Stool Characteristics: Nutritional Diagnosis Nutritional Risk Acuity 2: Abcess/Non-Healing Wound (new BKA) Nutritional Risk Acuity 3: ST I/II Pressure Ulcer Past Medical History: DM2 Nutritional Acuity: 2-Moderate Nutrition Diagnosis: Increased Nutrient Needs Nutrition Etiology: Physiological Causes Nutrition Problem/Etiology/Sym: R/T wound healing AEB recovery from amputation Energy Requirement: 2029 (HB (adjusted)) Protein Requirement: 115 (115-140 g/day (1-1.4 g/kg)) Fluid Requirement: 2029 ((1 ml/kcal)) Diet Type: Diabetic Nutrition Intervention: Cont diet as ordered, Encourage intake, HS snack Drug: Diuretics (pt on both k+ sparing and depleting duiretic) Nutrition Monitoring & Eval Nutrition Goals: Eat 75-100% Meal Nutrition Follow-Up: Good Intake RD Patient Assessment Time: [address] Assessment Type: RD Re-Assessment Patient Nutrition Acuity: 2-Moderate Follow Up Date: Feb 03, 2019 Nutritional Comment: 01/23/2019: Pt transferred to F. According to care activity, pt no longer presents with sepsis. Will continue to monitor pt for healing of all wounds, and his intake. -BB 01/26/19 Pt cont on Diabetic diet. Pt is eating 75-100% off most meals. BG ranging in 200's. Pt is on metformin and humalog. Pt is also on lasix, a K+ depeting duiretic and and spironolacton, a K+ sparing duiretic. K+ is currently WNR at 4.1. Pt was admitted to med unit at 01/05 with wt of 114 kg. Pt had a BKA performed while on the unit. Current wt 123Kg. Pt has 3+ LLE edema and 2-3+ edema to hand, L foot and scotum. Anticipate wt loss when edema resolved. Pt has increased protein needs r/t amputation and pressure ulcer to buttock and ankle. Will cont to monitor and encourage intake. BK Height (Inches): 65 Height (Calculated Centimeters: 165.330454 Weight (Pounds): 272 Weight (Calculated Kilograms): 121.563 BMI: 42 Hasmukh Nutrition Score: Probably Inadequate Hasmukh Nutrition Risk Score: 12 Dietary Referral Nutrition Risk Factors: Stg 2-4 Press Ulcer Nutrition Risk Comment: Nutrition Anthropometrics Height (Inches): 65 Height (Calculated Centimeters: 165.298354 Weight (Pounds): 272 Weight (Calculated Kilograms): 121.563 BMI: 42 Hasmukh Nutrition Score: Probably Inadequate Hasmukh Nutrition Risk Score: 12 Dietary Referral Nutrition Risk Factors: Stg 2-4 Press Ulcer Nutrition Risk Comment: FOUZIA PADILLA Jan 26, 2019 14:51
--- NOTE | 2019-01-26 17:41 | RADIOLOGY IMAGING REPORT ---
FACILITY: [facility] PATIENT NAME: Shayne Fairchild : 1965 MR: [id number] V: [id number] EXAM DATE: ORDERING PHYSICIAN: RIKA LEIVA TECHNOLOGIST: Location: [facility] [place] Patient: Shayne Fairchild : 1965 Visit/Account:[id number] Date of Sevice: 01/26/2019 TESTICULAR HISTORY: scrotal swelling COMPARISON: None. FINDINGS: Testes: Right testicle measures 4.1 x 2.5 x 2.8 cm. Left testicle measures 4.3 x 2.4 x 2.1 cm. Both testes appear heterogeneous Symmetric and unremarkable blood flow documented by color and Duplex Do ppler ultrasound. Epididymides: The head epididymis on the right measures 1.8 cm on the left 3.85 centers. There are t wo large cysts either within or directly contiguous to the head epididymis on the left one measuring 7.2 cm in diameter and one measuring 2.9 cm in diameter Blood flow is unremarkable in each epididymis by color Doppler ultrasound. Hydrocele: None. Varicocele: There is severe scrotal edema bilaterally IMPRESSION: There is severe scrotal edema bilaterally. Both testicles appear heterogeneous although blood flow i s documented 2. Very large cysts either within or directly contiguous to the head of the epididymis on the left as described above Report Dictated By: Italia Balderrama MD at 01/26/2019 5:28 PM Report E-Signed By: Italia Balderrama MD at 01/26/2019 5:31 PM WSN:[id number]
[2019-01-26] MEDS: PATCH REMOVAL 1 EA TP SCH (21:00)
[2019-01-26] MEDS: NYSTATIN 100,000 U/GM PWD 15GM TP SCH (21:18)
[2019-01-26] MEDS: CYCLOBENZAPRINE HCL 10 MG TAB PO PRN (21:32)
[2019-01-27] MEDS: APAP/HYDROCODONE 325/7.5 TAB PO PRN ×5 (03:32→21:36)
[2019-01-27] MEDS: diphenhydrAMINE 25 MG CAP PO PRN ×2 (03:32→21:36)
[2019-01-27] MEDS: PANTOPRAZOLE SOD 40 MG TABEC PO SCH (06:36)
[2019-01-27 07:10] VITALS: BP 173/94
[2019-01-27] MEDS: LIDOCAINE 5% PATCH TP SCH (08:57)
[2019-01-27] MEDS: NYSTATIN 100,000 U/GM PWD 15GM TP SCH ×2 (08:57→21:36)
[2019-01-27] MEDS: ENOXAPARIN 40 MG/0.4ML SYR SC SCH (08:57)
[2019-01-27] MEDS: SPIRONOLACTONE 25 MG TAB PO SCH (08:58)
[2019-01-27] MEDS: DOCUSATE SODIUM 100 MG CAP PO SCH ×2 (08:58→21:36)
[2019-01-27] MEDS: metFORMIN HCL XR 500 MG TABCR PO SCH ×2 (08:58→21:36)
[2019-01-27] MEDS: INSULIN HUM LISPRO 100 UN/ML 3 ML VIAL SUBQ PRN ×4 (08:58→21:37)
[2019-01-27] MEDS: ASCORBIC ACID 500 MG TAB PO SCH (08:59)
[2019-01-27] MEDS: cloNIDine HCL 0.1 MG TAB PO SCH ×2 (08:59→21:36)
[2019-01-27] MEDS: FERROUS SULFATE 325 MG TAB PO SCH (08:59)
[2019-01-27] MEDS: FUROSEMIDE 20 MG TAB PO SCH (08:59)
[2019-01-27] MEDS: CYCLOBENZAPRINE HCL 10 MG TAB PO PRN (09:08)
--- NOTE | 2019-01-27 14:20 | Hospitalist Consultation ---
History of Present Illness Requesting Physician Hospitalists Reason for Consult Scrotal edema History of Present Illness 53-year-old gentleman who presented in late December with gangrene of the right foot, subsequently underwent right below-knee amputation. Since that time he has been admitted awaiting fitting of the prosthesis to assist with ambulation. Because of this he is mostly bedbound and chair bound. I was asked to consult because of his penoscrotal edema. History Unable To Obtain Past Medical: Problems: (1) Scrotal edema Status: Acute Home Meds Reported Medications Metformin Hcl (METFORMIN HCL) 500 Mg Tablet, 1-2 TAB PO BID, TAB takes 2 pills in AM and 1 pill in PM 01/05/19 Allergies: Coded Allergies: Penicillins (Verified Allergy, Unknown, 01/05/19) Hx Smoking: No Caffeine Intake: Soda Hx Alcohol Use: Yes Hx Substance Use Disorder: No Review of Systems Constitutional: No Fever, No Weight Loss, No Weight Gain, No Chills, No Night Sweats, No Other Neurological: No Syncope, No Confusion, No Weakness, No Dizziness, No Slurred Speech, No Other Gastrointestinal: No Nausea, No Vomiting, No Diarrhea, No Dysphagia, No Cons tipation, No Early Satiety, No Hematemesis, No Hematochezia, No Melena, No Abdominal Pain, No Other Genitourinary: Other (history of left spermatocele) Exam Vital Signs Vital Signs Date Time Temp Pulse Resp B/P (MAP) Pulse Ox O2 Delivery O2 Flow Rate FiO2 01/27/19 10:09 97 Oxy Mask 3.0 01/27/19 07:10 97.6 83 18 173/94 (120) General Appearance: Alert, Awake Eyes: PERRLA Cardiovascular: Normal Rhythm & Peripheral Pulses, Regular Rate and Rhythm, Other (left lower extremity edema) Respiratory: No Respiratory Distress GI: Abd Soft and Non-Tender, Other (pre-pubic edema) : No CVA Tenderness, Other (significant penoscrotal edema with shrouding of the glans. No evidence of cellulitis) Extremities: Edema Medical Decision Making Data Points Result Diagram: 01/24/1992001/24/19920 EKG / Imaging Imaging He underwent scrotal ultrasound that demonstrates significant left spermatoceles approximately 11 cm in greatest dimension Assessment and Plan Condition Impression: Significant penoscrotal pre-pubic and lower extremity dependent edema in the setting of pre-existing large left spermatoceles Plan: Since he is spending most of his time in bed and in a recliner chair, the scrotum becomes the most dependent portion of his anatomy. This in the setting of pre-existing large spermatoceles and generalized lower extremity edema is predisposing him to penoscrotal edema. At this point there is no evidence of cellulitis. I would not remove his Cavazos catheter at this point especially if it is needed for ongoing diuresis. Scrotal support with either a towel or full that she may help reduce some of this and I reviewed that with the nursing staff on ECF. Given the large size of his spermatoceles however he will always have some increase in scrotal volume, but I would not recommend intervening on the spermatoceles at this point. Time Spent on Plan of Care: > 30 min Venous Thromboembolism Antithrombotics Is Pt On Any Antithrombotics?: Yes GENESIS ROQUE MD Jan 27, 2019 14:20
[2019-01-27] MEDS: PATCH REMOVAL 1 EA TP SCH (21:00)
[2019-01-27 21:10] VITALS: BP 212/108
[2019-01-27 21:15] VITALS: BP 188/100
[2019-01-28] MEDS: APAP/HYDROCODONE 325/7.5 TAB PO PRN ×5 (03:52→22:25)
[2019-01-28] MEDS: diphenhydrAMINE 25 MG CAP PO PRN ×3 (03:55→18:27)
[2019-01-28] MEDS: PANTOPRAZOLE SOD 40 MG TABEC PO SCH (06:38)
[2019-01-28 07:22] LABS: PLATELET COUNT, AUTOMATED 472 K/uL (150-450)
[2019-01-28 07:32] VITALS: BP 175/91
[2019-01-28] MEDS: LIDOCAINE 5% PATCH TP SCH (08:37)
[2019-01-28] MEDS: metFORMIN HCL XR 500 MG TABCR PO SCH ×2 (08:38→21:06)
[2019-01-28] MEDS: cloNIDine HCL 0.1 MG TAB PO SCH ×2 (08:38→21:07)
[2019-01-28] MEDS: ENOXAPARIN 40 MG/0.4ML SYR SC SCH (08:38)
[2019-01-28] MEDS: SPIRONOLACTONE 25 MG TAB PO SCH (08:38)
[2019-01-28] MEDS: DOCUSATE SODIUM 100 MG CAP PO SCH ×2 (08:38→21:07)
[2019-01-28] MEDS: ASCORBIC ACID 500 MG TAB PO SCH (08:39)
[2019-01-28] MEDS: FUROSEMIDE 40 MG TAB PO SCH (08:39)
[2019-01-28] MEDS: FERROUS SULFATE 325 MG TAB PO SCH (08:39)
[2019-01-28] MEDS: NYSTATIN 100,000 U/GM PWD 15GM TP SCH ×2 (08:40→21:06)
[2019-01-28] MEDS: INSULIN HUM LISPRO 100 UN/ML 3 ML VIAL SUBQ PRN ×4 (08:40→21:09)
--- NOTE | 2019-01-28 14:20 | Hospitalist Progress Note ---
Subjective Progress Notes Subjective He reports fatigue. Continued edema. Physical Exam Vital Signs Date Time Temp Pulse Resp B/P (MAP) Pulse Ox O2 Delivery O2 Flow Rate FiO2 01/28/19 11:14 78 01/28/19 10:24 Oxy Mask 3.0 01/28/19 07:32 99.7 80 16 175/91 (119) Intake and Output 01/28/19 07:04 Intake Total 1710 ml Output Total 1450 ml Balance 260 ml Intake Oral 1710 ml Output Urine Total 1450 ml General Appearance: Alert, Awake Cardiovascular: Regular Rate and Rhythm Respiratory: Clear to Auscultation GI: Other (obese/soft) : Other (scrotal edema essentially unchanged) Musculoskeletal: Other (right residual limb with compression dressing ) Extremities: Warm, Perfused, Edema Result Diagram: 01/28/1965401/28/19654 Assessment and Plan Problems: (1) Status post below knee amputation Status: Chronic Assessment & Plan: Due to gangrene right foot. He has completed a full course of antibiotics as well. He is now working with PT/OT on mobility and edema control/fitting for prosthesis. The process has been rather slow. (2) ANEMIA, UNSPECIFIED Status: Acute Assessment & Plan: Most likely due to rather severe acute illness and blood loss related to surgeries. Will need to monitor counts closely. May need transfusion again. (3) Scrotal edema Status: Acute Assessment & Plan: Due to protein malnutrition. He has LE/dependent edema as well. His intake has improved and his labs are improving. Encouraged him to continue with his protein intake and work on mobility. Will continue with some diuresis as well. (4) Type 2 diabetes mellitus Status: Chronic Assessment & Plan: ADA diet. He is on his usual metformin. Will continue with SSI as needed as well. Problem Qualifiers (1) Status post below knee amputation: Laterality: right Qualified Codes: Z89.511 - Acquired absence of right leg below knee SUSAN LOPEZ MD Jan 28, 2019 14:20
[2019-01-28 16:10] VITALS: BP 174/100
[2019-01-28] MEDS: PATCH REMOVAL 1 EA TP SCH (21:00)
[2019-01-29] MEDS: PANTOPRAZOLE SOD 40 MG TABEC PO SCH (05:58)
[2019-01-29 07:20] VITALS: BP 188/96
--- NOTE | 2019-01-29 08:13 | SLP EVALUATION SUMMARY REPORT ---
INITIAL SPEECH THERAPY EVALUATION REPORT Cognitive Linguistic and Motor Speech Assessment Patient Name: Shayne Fairchild Date of Evaluation: 01/29/19 Patient : 63 Clinician: Veena Bauman M.S., [facility] Treatment Dx: moderate cognitive linguistic deficits; mild motor speech impairments BACKGROUND The patient is an 63-year-old male who presents to the ECF for ongoing rehabilitation following hospitalization at [facility], including R BKA. Please refer to medical record for detailed history. The pt was seen by ST services on the med/surg unit due to initial presentation to the ED with slurred speech and persistent cognitive linguistic changes s/p surgical interventions, likely coupled with diabetic ketoacidosis. An ST consult was requested following transition to the ECF to analyze persistent concerns re: short-term memory deficits and difficulty with initiation to perform rehabilitative activities. Primary Medical Diagnosis: gangrene of right foot Past Medical Hx: diabetes, HTN Prior Level of Function: independent; drives a semi-truck for a living. Supportive spouse. COGNITIVE LINGUISTIC ASSESSMENT Pt exhibits mild cognitive linguistic deficits most notably characterized by reduced short-term memory. Information processing and initiation to perform tasks was also noted to be mildly delayed. Specific etiology is unclear, possibly multifactorial including diabetic ketoacidosis, chronic small vessel changes, chronic lacunar infarcts, and prolonged course of hospitalization. Cognitive linguistic assessment was completed at the bedside, including informal measures paired with the [place] Cognitive Assessment (MoCA), Version 8.2. Pt achieved a total score of 25/30 (26/30=WNL), indicative of borderline, mild cognitive linguistic deficits. He exhibited the greatest difficulty with short- term recall of novel information, and ongoing difficulty with keeping track of the current date. Processing speed was also mildly delayed, coupled with delayed initiation of responses to assessment prompts. Cognitive function is much improved in comparison to status upon initial evaluation in the med/surg unit. Relative areas of strength were observed in environmental and situational orientation, attention, mental abstraction, executive function skills, working memory, mental calculations, immediate recall, and problem solving. At this time, the pt appears to be approaching his baseline status from a cognitive-linguistic standpoint. Mild deficits persist, particularly in the areas of short-term recall, processing, and initiation. A brief course of skilled ST services is warranted in a subacute rehab setting to to provide patient and staff instruction in strategies to support identified areas of impairment for improved participation in rehabilitative POC, and for safe and successful transition to prior level of function. RECOMMENDATIONS 1. ST 2x/wk, 2wks 2. D/C with spouse PROGNOSIS: Good. High PLOF. Insight into deficits. Positive response to prior interventions. PLAN OF CARE Short Term Goals 1. Pt will independently initiate and execute 2-3 level sequences to improve active participation in daily routine and rehabilitative POC. 2. Pt will utilize internal or external short-term memory strategies with min cues to support consistent recall of medical information (e.g., medications, diet restrictions, rehabilitative goals). Long-Term Goals 1. The patient will demonstrate functional cognitive communication status for safety and maximized independence upon anticipated d/c with spousal support and appropriate access to home/community resources. Thank you for this referral. Please call [phone] to contact with any questions or concerns. Veena Bauman M.S., [facility] [*] [facility]
[2019-01-29] MEDS: NYSTATIN 100,000 U/GM PWD 15GM TP SCH ×2 (08:45→20:50)
[2019-01-29] MEDS: cloNIDine HCL 0.1 MG TAB PO SCH ×2 (08:46→20:49)
[2019-01-29] MEDS: INSULIN HUM LISPRO 100 UN/ML 3 ML VIAL SUBQ PRN ×4 (08:46→20:57)
[2019-01-29] MEDS: SPIRONOLACTONE 25 MG TAB PO SCH (08:47)
[2019-01-29] MEDS: DOCUSATE SODIUM 100 MG CAP PO SCH ×2 (08:47→20:49)
[2019-01-29] MEDS: ASCORBIC ACID 500 MG TAB PO SCH (08:47)
[2019-01-29] MEDS: FUROSEMIDE 40 MG TAB PO SCH (08:47)
[2019-01-29] MEDS: metFORMIN HCL XR 500 MG TABCR PO SCH ×2 (08:48→20:49)
[2019-01-29] MEDS: FERROUS SULFATE 325 MG TAB PO SCH (08:48)
[2019-01-29] MEDS: LIDOCAINE 5% PATCH TP SCH (08:48)
[2019-01-29] MEDS: ENOXAPARIN 40 MG/0.4ML SYR SC SCH (08:49)
[2019-01-29] MEDS: APAP/HYDROCODONE 325/7.5 TAB PO PRN ×4 (09:39→22:43)
[2019-01-29] MEDS ORDERED: MAGNESIUM HYDROXIDE* 30ML UDCP PO PRN (09:50)
[2019-01-29] MEDS ORDERED: BISACODYL 10 MG SUPP PR PRN (09:50)
[2019-01-29] MEDS: CYCLOBENZAPRINE HCL 10 MG TAB PO PRN ×2 (14:38→23:38)
[2019-01-29 16:30] VITALS: BP 193/99
[2019-01-29] MEDS: PATCH REMOVAL 1 EA TP SCH (20:48)
[2019-01-29] MEDS ORDERED: SIMETHICONE 80 MG CHEW CHEW PRN (23:45)
[2019-01-30] MEDS: PANTOPRAZOLE SOD 40 MG TABEC PO SCH (05:50)
[2019-01-30 07:27] VITALS: BP 182/101
[2019-01-30] MEDS: APAP/HYDROCODONE 325/7.5 TAB PO PRN ×4 (07:41→20:38)
[2019-01-30] MEDS ORDERED: POLYETHYLENE GLYCOL 17 GM PKT PO SCH (09:00)
[2019-01-30] MEDS: LIDOCAINE 5% PATCH TP SCH (10:04)
[2019-01-30] MEDS: NYSTATIN 100,000 U/GM PWD 15GM TP SCH ×2 (10:06→20:39)
[2019-01-30] MEDS: ENOXAPARIN 40 MG/0.4ML SYR SC SCH (10:06)
[2019-01-30] MEDS: INSULIN HUM LISPRO 100 UN/ML 3 ML VIAL SUBQ PRN ×4 (10:08→20:37)
[2019-01-30] MEDS: FERROUS SULFATE 325 MG TAB PO SCH (11:08)
[2019-01-30] MEDS: SPIRONOLACTONE 25 MG TAB PO SCH (11:09)
[2019-01-30] MEDS: cloNIDine HCL 0.1 MG TAB PO SCH ×2 (11:09→20:38)
[2019-01-30] MEDS: ASCORBIC ACID 500 MG TAB PO SCH (11:09)
[2019-01-30] MEDS: metFORMIN HCL XR 500 MG TABCR PO SCH ×2 (11:09→20:38)
[2019-01-30] MEDS: FUROSEMIDE 40 MG TAB PO SCH (11:10)
[2019-01-30] MEDS: DOCUSATE SODIUM 100 MG CAP PO SCH ×2 (11:10→20:39)
[2019-01-30 15:40] VITALS: BP 164/85
[2019-01-30] MEDS: PATCH REMOVAL 1 EA TP SCH (20:38)
== END 2019-01-31 00:01 | disposition still patient (30) | DRG 951 ==
LOC: ECF 10:50
PROVIDERS: ADMIT Internal Medicine; ATTEND Internal Medicine
DX: Z02.9 Encounter for administrative examinations, unspecified (principal)
CPT/HCPCS: 36415; 36416; 76870; 82040; 82247; 82310; 82374; 82435; 82565; 82947; 82948; 84075; 84132; 84155; 84295; 84450; 84460; 84520; 85014; 85018; 85025; 92523; 97163; 97165; J1650; J1940; J2550; Q0163; Q0169